=== PATIENT | female | born 1960 | race Caucasian/White ===

== ENCOUNTER 2021-05-05 15:04 | Outpatient (CLI) | payer MEDICARE, MEDICAID, SELFPAY ==
--- NOTE | 2021-05-05 15:15 | MR_ITS ---
WS: [id number] MRI LUMBAR SPINE NONCONTRAST TECHNIQUE: Sagittal T1, T2 and STIR imaging. Axial T1 and T2 imaging. CLINICAL INFORMATION: LBP COMPARISON: MRI 2015 FINDINGS: Mild lumbar curve. No acute compression. No high-grade central canal stenosis. Disc bulging worse L4- 5. L1-L2: Normal. L2-L3: Mild annular bulging. Mild facet arthropathy. Spinal canal and foramen are patent. Mild annula r bulging with slight effacement of the ventral thecal sac. L3-L4: Tiny central disc protrusion with slight narrowing of the right greater than left subarticular recess. Mild right and no significant left foraminal narrowing. Moderate facet arthropathy. L4-L5: Mild annular bulging with mild central canal stenosis. Slight contact of the traversing L5 ner ve roots bilaterally. Mild right and no significant left foraminal narrowing. Moderate facet arthropa thy ligamentum flavum hypertrophy. L5-S1: No significant disc bulging. Moderate facet arthropathy. Spinal canal and foramen are patent. Small bilateral renal cysts. Postoperative changes ACDF cervical spine seen on the conciliator imaging at C3-C6. MR/MR lumbar spine wo con* [id number] IMPRESSION: 1. Mild lumbar curve. No acute compression. No high-grade central canal stenos is. 2. Mild bulging L4-5 with mild central canal stenosis progressed since 2014. S light impingement traversing L5 nerve roots bilaterally with moderate facet art hropathy and ligamentum flavum hypertrophy. 3. Tiny central protrusion L3-4 with slight effacement of ventral thecal sac a nd slight encroachment traversing right L4 nerve root. Moderate facet arthropat hy at this level. 4. Mild right L3-4 and L4-5 foraminal narrowing.
== END 2021-05-05 15:05 | disposition home or self-care (01) ==
PROVIDERS: Visit Provider Physician Assistant
DX: M51.26 Other intervertebral disc displacement, lumbar region (principal); M48.061 Spinal stenosis, lumbar region without neurogenic claudication
CPT/HCPCS: 72148

== ENCOUNTER → 2021-06-10 14:47 | Outpatient (BNVA) | payer MEDICARE, MEDICAID, SELFPAY | PROVIDERS: PCP Physician Assistant; Referring Provider Physician Assistant; Visit Provider Orthopaedic Surgery | DX: M48.062 Spinal stenosis, lumbar region with neurogenic claudication (principal) | CPT/HCPCS: 72110 ==

== ENCOUNTER → 2021-06-27 16:03 | Outpatient (BNVA) | payer MEDICARE, MEDICAID, SELFPAY | PROVIDERS: PCP Physician Assistant; Visit Provider Orthopaedic Surgery | DX: M48.062 Spinal stenosis, lumbar region with neurogenic claudication (principal); Z01.818 Encounter for other preprocedural examination | CPT/HCPCS: 87635 ==

== ENCOUNTER 2021-07-02 05:20 | Day surgery (SDC) | payer MEDICARE, MEDICAID, SELFPAY ==
[2021-06-26 10:32] VITALS: BMI 29.2
--- NOTE | 2021-06-26 10:47 | ANES.PREANE2 ---
Pre-Anesthetic Assessment Pre-Anesthetic Assessment: Height/Weight: Height 1.63 m Weight 77.111 kg Proposed Procedure: Operation Date: 07/02/21 07:00 Proposed Procedures p Lumbar Spine Decompression L4/5 93533 M48.062(Not Applicable) - Munir Tipton, DO Was Beta Josep taken within 24 hours: N/A Was Clonidine taken within 24 hours: N/A Social: Social History: No alcohol and No tobacco Exam: Pre-Anes Outpt Exam: alert, oriented x 3, clear to auscultation bilaterally and regular rate & rhythm Airway: Submandibular: WNL Cervical ROM: WNL MP: 2 CV/HEM: CV/HEM: HTN Metabolic: Metabolic: Hyperlipidemia Musc/skel: Musc/skel: Lower Back Pain Neuropsych: Neuropsych: Anxiety, Depression and Seizure Anesthetic Plan: ASA status: 3 Anesthesia: General Risk of > 500 ml blood loss (7ml/kg in children): No PFSH Anesthesia PFSH: Social History Smoking and tobacco status: former smoker (9 years ) Data Anesthesia Cardiac Studies: No Data to Display
[2021-07-02] VITALS (8 sets, daily range): BP systolic 111–144; BP diastolic 72–88; PULSE 72–76; RESP 16–23; TEMP 36.3–36.6; O2SAT 95–100
--- NOTE | 2021-07-02 | XR_ITS ---
WS: [id number] C-ARM RADIOGRAPHS LUMBAR SPINE; 3 IMAGES HISTORY: spinal stenosis, lumbar COMPARISON: None available. Intraoperative imaging during spine decompression. There is a marker at the L4-5 disc level. XR/XR lumbar spine 1V [id number] IMPRESSION: Intraoperative imaging with marker at the L4-5 disc level.
--- NOTE | 2021-07-02 | SCC_ITS ---
Procedure Done: 1. Bilateral L4/5 laminectomy with partial facetectomies 11.5 seconds of fluoroscopic guidance, for a cumulative dose of 4.50 mGy, was provided to Dr. Tipton by the radiology department. C-arm images of the lumbar spine were saved for the patient's permanent record. [facility]
[2021-07-02] MEDS: sodium chloride 0.9% 1,000 ML 30 ML IV (06:15)
[2021-07-02 06:18] LABS: Glucose Point of Care 131 mg/dL (70-110)
--- NOTE | 2021-07-02 06:45 | P.ANESUD_ITS ---
Pre-Anesthetic Update Pre-Anesthetic Assessment: Date of Surgery/Procedure: 07/02/21 Preop Zara gnosis: Lumbaar Stenosis Proposed Procedure: Operation Date: 07/02/21 07:00 Proposed Procedures p Lumbar Spine Decompression L4/5 36217 M48.062(Not Applicable) - Munir Tipton, DO Any changes to Pre-Anesthetic Assessment?: No Last Intake: Intake Last Liquid Date 07/01/21 Last Liquid Time 23:00 Last Solid Date 07/01/21 Last Solid Time 21:00 Labs Last 48hrs: Laboratory Results - last 48 hr 07/02/21 06:15 POC Glucose 131 H Vitals: Temperature 97.6 F 07/02/21 06:08 Temperature Source Temporal Artery S can 07/02/21 06:08 Pulse Rate 73 07/02/21 06:08 Respiratory Rate 16 07/02/21 06:08 Blood Pressure 129/86 07/02/21 06:08 Blood Pressure Angela n 100 07/02/21 06:08 Pulse Oximetry 96 07/02/21 06:08 Oxygen Delivery Me thod 07/02/21 06:08 Exam: Pre-Anes Outpt Exam: alert, oriented x 3, clear to auscultation bilaterally and regular rate & rhythm Cardiac Studies: No Data to Display
--- NOTE | 2021-07-02 06:50 | W.PM.OPSUD ---
Surgery/Procedure H&P Update DATE OF PROCEDURE: July 02, 2021 DATE H&P PERFORMED: 06/10/21 H&P UPDATE INFORMATION: I have reviewed H&P completed within last 30 days, I have examined patient prior to procedure and No changes to prior documentation PREOP DIAGNOSIS: Lumbaar Stenosis PLANNED PROCEDURE: Operation Date: 07/02/21 07:00 Proposed Procedures p Lumbar Spine Decompression L4/5 30229 M48.062(Not Applicable) - Munir Tipton DO
--- NOTE | 2021-07-02 08:36 | PM.OP ---
Operative Report Date of procedure: July 02, 2021 Pre-op Diagnosis: Lumbaar Stenosis with neurogenic claudication Post-op diagnosis: same Procedure Done: 1. Bilateral L4/5 laminectomy with partial facetectomies Surgeon: Munir Tipton Anesthesia: General Estimated blood loss (mL): 5 Condition: stable Disposition: PACU Procedure: 1. Bilateral L4/5 laminectomy with partial facetectomies Patient is brought to the operative suite. After undergoing anesthesia they are placed in the prone position. All areas of impingement are well padded. Patient is then prepped and draped in the normal sterile fashion. A skin incision is made over the L4/5 level. This is confirmed under c-arm guidance. A series of dilators are passed and the tubular retractor is docked on the L4 lamina. A bovie is used to clear the soft tissue off the lamina and the L 4/5 facet joint. A high speed luis enrique is then used to perform the laminectomy and take down the medial aspect of the L 4/5 facet joint. A kerrison rongeure was then used to take down the remaining lamina and smooth the edged of the laminectomy up to the point where the ligamentum flavum attaches. Attention was then brought to the medial aspect of the facet joint. The remaining medial aspect of the superior and inferior aspect of the facet joint were taken down with the kerrison from the pedicle of L4 to L 5. The facet joint had significant hypertrophy. Attention was then brought to the Ligamentum Flavum. The ligament was taken down from the lamina of L4 to L5 and out medially to the remaining facet joint. The ligament was thick. The dura was then exposed. The dura was in good repair. The L4 nerve was then traced with a curette out the L4/5 foramen and found to be adequately decompressed. The L5 nerve was traced with a curette around the L5 pedicle. The lateral recess was opened with a kerrison helping to further decompress the L5 nerve. The tubular retractor was then tilted to the contralateral side. The bovie was used to take down the soft tissue on the spinous process. The high speed luis enrique was used to take down the spinous process and then the contralateral lamina of L4. The kerrison rongeur was used to take down the remaining lamina to the point where the ligamentum flavum attached and the ligamentum flavum was taken down from L4 to L5. The kerrison rongeur was then used to reach across and take down the medial aspect of the contralateral L4/5 facet joint.The currete was used to trace the contralateral L4 nerve out the L4/5 foramen to make sure it was decompressed adequatesly and the L5 was traced around the L5 pedicle. The lateral recess was opened further with the kerrison to ensure the L5 is adequately decompressed. Wound is then irrigated copiously with saline and surgiflo is used to stop any bleeding. The tubular retractor is removed and the wound is closed with vicryl and monocryl suture. Glue is then used to protect the wound. A sterile dressing is then placed. Patient was then placed in the supine position and transferred to the PACU in stable condition.
[2021-07-02] MEDS: HYDROcodone-acetaminophen 5-325 mg Tablet 1 TAB PO (08:54)
--- NOTE | 2021-07-02 14:47 | ANE.PACU2 ---
Inpatient post-anesthesia follow up: Airway intact: Yes Vital signs: Temperature 98 F Pulse Rate 73 Respiratory Rate 17 Blood Pressure 118/76 Pulse Oximetry 95 Oxygen Delivery Me thod Room Air Oxygen Flow Rate 8 Fraction of Inspir ed Oxygen Hydration adequate: Yes Nausea and vomiting: No Pain level: 2 Mental status: Baseline
== END 2021-07-02 09:50 | disposition home or self-care (01) ==
PROVIDERS: PCP Physician Assistant; Visit Provider Orthopaedic Surgery
PROC: (CPT 63005; principal; 2021-07-02 07:00)
DX: M48.062 Spinal stenosis, lumbar region with neurogenic claudication (principal); I10 Essential (primary) hypertension; E78.5 Hyperlipidemia, unspecified; Z87.891 Personal history of nicotine dependence
CPT/HCPCS: 63047; 36416; 72020; 76000; 82962; J0690; J1100; J2370; J2405; J2704; J2710; J3010; J3490; J7030

== ENCOUNTER → 2021-07-14 13:17 | Outpatient (BNVA) | payer MEDICARE, MEDICAID, SELFPAY | PROVIDERS: PCP Physician Assistant; Visit Provider Urology | DX: N28.1 Cyst of kidney, acquired (principal) | CPT/HCPCS: 81003 ==

== ENCOUNTER 2022-05-15 20:59 | Emergency (ER) | payer MEDICARE, MEDICAID, SELFPAY ==
[2022-05-15 21:02] VITALS: BP 155/99; PULSE 98; RESP 18; TEMP 36.7; O2SAT 94; BMI 27.8
--- NOTE | 2022-05-15 21:05 | ECG_ITS ---
[facility] Test Date: 2022-05-15 Pat Name: Selina Henning Department: Room: Gender: Female Back Sizer: : 1960 Requested By: Macario Huang Order Number: [id number] Liza MD: Liza Mauricio M.D. Measurements Intervals [place] Rate: 91 P: 55 MD: 150 QRS: 13 QRSD: 73 T: 69 QT: 361 QTc: 446 Interpretive Statements SINUS RHYTHM NONSPECIFIC T-WAVE ABNORMALITY Compared to ECG 09/02/2018 13:57:44 T-wave abnormality now present Electronically Signed On 05-16-2022 10:52:32 CDT by Liza Mauricio M.D. [id number]
--- NOTE | 2022-05-15 21:07 | XRR_ITS ---
PROCEDURE INFORMATION: Exam: XR Chest Exam date and time: 05/15/2022 9:42 PM Age: 61 years old Clinical indication: Pain; Chest pressure; Additional info: Cp TECHNIQUE: Imaging protocol: Radiologic exam of the chest. Views: 1 view. COMPARISON: CR XR chest 2V* [id number] 09/02/2018 2:10 PM FINDINGS: Lungs: Unremarkable. No consolidation. Pleural spaces: Unremarkable. No pleural effusion. No pneumothorax. Heart/Mediastinum: Unremarkable. No cardiomegaly. Bones/joints: ACDF hardware noted in the mid and lower cervical spine. Visualized osseous structures are intact. XR/XR chest 1V portable [id number] IMPRESSION: No acute findings.
[2022-05-15 21:13] LABS: Basophils # 0.1 10^3/uL (0.0-0.1); Basophils % 1.1 %; Eosinophils # 0.4 10^3/uL (0.0-0.8); Eosinophils % 4.1 %; Hematocrit 39.7 % (37.0-47.0); Hemoglobin 12.9 g/dL (11.5-15.3); Lymphocytes # 1.9 10^3/uL (0.8-4.8); Lymphocytes % 21.4 %; Mean Corpuscular HGB Conc 32.5 g/dL (30.0-36.0); Mean Corpuscular Hemoglobin 30.5 pg (28.0-34.0); Mean Corpuscular Volume 93.9 fl (81-99); Mean Platelet Volume 8.8 fL (7.4-10.4); Monocytes # 0.7 10^3/uL (0.2-0.9); Monocytes % 7.7 %; Neutrophils # 5.86 10^3/uL (1.8-7.7); Neutrophils % 65.3 %; Nucleated Red Blood Cells % 0 %; Platelet Count 407 10^3/cmm (130-400); Red Blood Count 4.23 10^6/uL (4.1-5.3); Red Cell Distribution Width 11.9 % (12.1-15.1)
[2022-05-15] MEDS: sodium chloride 0.9% 1,000 ML 999 ML IV (21:13)
[2022-05-15 21:16] VITALS: BP 134/85; BP 152/106; BP 163/110; PULSE 80; PULSE 85; PULSE 92; PULSE 97
[2022-05-15 21:51] LABS: Troponin(5th) Baseline 7 ng/L (0-10)
[2022-05-15 22:00] LABS: Alanine Aminotransferase 54 U/L (0-33); Albumin Level 3.9 g/dL (3.5-5.2); Alkaline Phosphatase 153 U/L (35-105); Anion Gap 15.9 (5-19); Aspartate Amino Transferase 26 U/L (0-32); Blood Urea Nitrogen 10 mg/dL (8-23); Calcium 9.4 mg/dL (8.5-10.5); Carbon Dioxide 27 mmol/L (22-29); Chloride 101 mmol/L (98-107); Globulin 3.1 g/dL (1.3-4.6); Glomerular Filtration Rate 84.8 mL/min (90-130); Glucose 114 mg/dL (65-115); Lipase 33 U/L (13-60); NT Pro B Type Natriuretic Pept 97 pg/mL (0-125); Osmolality Calculated 290 mOsm/kg (285-295); Potassium 3.9 mmol/L (3.5-5.1); Sodium 140 mmol/L (136-145); Total Bilirubin 0.2 mg/dL (0.15-1.2)
--- NOTE | 2022-05-15 22:01 | CTR_ITS ---
PROCEDURE INFORMATION: Exam: CT Head Without Contrast Exam date and time: 05/15/2022 10:18 PM Age: 61 years old Clinical indication: Dizziness TECHNIQUE: Imaging protocol: Computed tomography of the head without contrast. Radiation optimization: All CT scans at this facility use at least one of these dose optimization techniques: automated exposure control; mA and/or kV adjustment per patient size (includes targeted exams where dose is matched to clinical indication); or iterative reconstruction. COMPARISON: No relevant prior studies available. RADIATION DOSE METRICS: Total DLP (mGy-cm): 1401.23 FINDINGS: Brain: Normal. No hemorrhage. Unremarkable white matter. No mass effect. Cerebral ventricles: No ventriculomegaly. Paranasal sinuses: Visualized sinuses are unremarkable. No fluid levels. Mastoid air cells: Visualized mastoid air cells are well aerated. Bones/joints: Unremarkable. No acute fracture. Soft tissues: Unremarkable. CT/CT head wo con* [id number] IMPRESSION: No acute intracranial abnormality.
[2022-05-15 22:07] VITALS: RESP 17
[2022-05-15] MEDS: morphine 4 mg/mL SDV 1 mL IVP (22:07)
[2022-05-15] MEDS: ondansetron 2 mg/ML SDV 2 mL 4 MG IVP (22:07)
[2022-05-15 23:00] VITALS: BP 135/97; PULSE 76; RESP 22; O2SAT 94
--- NOTE | 2022-05-15 23:07 | ECG_ITS ---
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 Measurements Intervals [place] Rate: 66 P: 52 W[place]: 137 QRS: 21 QRSD: 76 T: 71 QT: 399 QTc: 421 Interpretive Statements SINUS RHYTHM ST DEVIATION AND MODERATE T-WAVE ABNORMALITY, CONSIDER ANTERIOR ISCHEMIA [-0.1+ mV T-WAVE IN V3/V4] Compared to ECG 05/15/2022 21:05:40 Possible ischemia now present T-wave abnormality still present Electronically Signed On 05-16-2022 10:55:07 CDT by Liza Mauricio M.D. [id number]
[2022-05-15 23:39] LABS: Troponin 5 2HR 7.51 ng/L (0-10)
[2022-05-15 23:40] LABS: SARS Covid-2 Antigen negative (Negative)
[2022-05-15 23:59] LABS: Troponin 5 2HR Delta 0.51 ABS# (0-10)
[2022-05-16 00:07] LABS: Blood Urine Neg (Negative); Glucose Urine UA Norm (Normal); Ketones Urine Negative (Negative); Leukocyte Esterase Urine Trace (Negative); Nitrate Urine Negative (Negative); Protein Urine Neg (Negative); Specific Gravity, Urine 1.015 (1.005-1.030); Urine Appearance Hazy (CLEAR); Urine Color Yellow (Yellow); pH Urine 7 (5-7)
[2022-05-16 00:08] LABS: Add Urine Microscopic? YES; Bilirubin Urine Neg (Negative); Urobilinogen Urine Norm (Negative)
[2022-05-16 00:09] LABS: Add Urine Culture? No; WBC Urine 0-4 /hpf (0-5)
[2022-05-16 00:28] VITALS: BP 122/74; PULSE 83; RESP 19; O2SAT 94
--- NOTE | 2022-05-16 13:17 | ED_ITS ---
HPI - Chest Pain General: Chief Complaint: Chest Pain Stated Complaint: N/V Time Seen by Provider: 05/15/22 21:06 Source: patient History of Present Illness: 61yo female with several days of illness and multiple comlaints including cough with chest pain with cough, generalized weakness, some sputum production, feeling feverish. Today she got quite dizzy a s well, which she describes as a room spinning type dizziness. MD complaint: chest pain Pertinent past history: other Onset (ago): hour(s) Timing of current episode: episodic Prior episodes: Yes Onset: during rest Pain location: substernal Pain radiation: none Severity: mild Quality: sharp Relieving factors: nothing Exacerbating factors: inspiration Associated symptoms: Reports diaphoresis, dyspnea (mild), fever(s) and nausea; Deny abdominal pain, leg edema, syncope or vomiting Treatment prior to arrival: none Review of Systems Const: Reports: fever(s) and diaphoresis Eyes: Denies: change in vision ENMT: Reports: throat pain Card: Reports: chest pain; Denies: syncope Resp: Reports: dyspnea (mild) and productive cough; Denies: wheezing GI: Reports: nausea; Denies: abdominal pain or vomiting Neuro: Reports: headache(s) PFSH ED PFSH: Medical History Bilateral renal cysts Family history of kidney cancer Family History Father , AT 88 Heart attack Diabetes Mother , AT AGE 85 Heart attack Social History Smoking and tobacco status: former smoker (9 years ) Alcohol intake: never Marital status: Current occupational status: retired and disabled History of recent travel: No Physical Exam Const: COMMON NORMALS: no acute distress GENERAL APPEARANCE: cooperative and ill appearing (very mildly); not frail appearing HENMT: COMMON NORMALS: normocephalic, atraumatic and Normal external nose present HEAD & SCALP: normocephalic and atraumatic FACE & SINUS: normal facial exam and face symmetric NOSE: Normal external nose present Eye: COMMON NORMALS: Equal, round and reactive pupils present and EOMs intact bilaterally PUPIL: Yes Equal, round and reactive pupils present Neck/C-Spine: GENERAL: Yes trachea midline Chest: CHEST: Yes Symmetrical chest wall rise Resp: COMMON NORMALS: normal respiratory effort, No retractions, No use of accessory muscles and clear to auscultation bilaterally AUSCULTATION: clear to auscultation bilaterally Cardio: COMMON NORMALS: regular rate and regular rhythm RATE: regular rate RHYTHM: regular rhythm GI: COMMON NORMALS: Normal to inspection, nondistended, normoactive bowel sounds present Extremity: COMMON NORMALS: no pedal edema Neuro: JOON COMA SCALE: document GCS findings Joon coma scale eye opening: Spontaneous Joon coma scale verbal response: Orientated [place] coma scale motor response: Obey commands Joon coma scale total score: 15 SENSORY EXAM: Yes extremities (intact) Psych: COMMON NORMALS: speech normal SPEECH: Yes normal speech Skin: COMMON NORMALS: no rashes or lesions noted GENERAL SKIN EXAM: no rashes or lesions noted Course 2 Vital Signs: Vital signs: Vital Signs Temperature 98.0 F 05/15/22 21:02 Pulse Rate 83 05/16/22 00:28 Respiratory Rate 19 H 05/16/22 00:28 Blood Pressure 122/74 05/16/22 00:28 Pulse Oximetry 94 05/16/22 00:28 Oxygen Delivery Me thod 05/15/22 21:02 MDM - Chest Pain Medical Decision Making EKG shows no ST change at 0 and 2h. Troponin remained normal. CBC BMP not remar kable. urinalysis neg. LFT not remarkable. CT head neg. xray neg as well. will allow home. she is improved after fluid here. Lab Data : 05/15/22 21:00 05/15/22 21:00 Radiology Impressions Chest X-Ray 05/15/22 21:07 IMPRESSION: No acute findings. Head CT 05/15/22 22:01 IMPRESSION: No acute intracranial abnormality. Laboratory Results WBC 9.0 10^3/uL (4.0-10.0) 05/15/22 21:00 RBC 4.23 10^6/uL (4.1-5.3) 05/15/22 21:00 Hgb 12.9 g/dL (11.5-15.3) 05/15/22 21:00 Hct 39.7 % (37.0-47.0) 05/15/22 21:00 MCV 93.9 fl (81-99) 05/15/22 21:00 MCH 30.5 pg (28.0-34.0) 05/15/22 21:00 MCHC 32.5 g/dL (30.0-36.0) 05/15/22 21:00 RDW 11.9 % (12.1-15.1) L 05/15/22 21:00 Plt Count 407 10^3/cmm (130-400) H 05/15/22 21:00 MPV 8.8 fL (7.4-10.4) 05/15/22 21:00 Neut % (Auto) 65.3 % 05/15/22 21:00 Lymph % (Auto) 21.4 % 05/15/22 21:00 Nance % (Auto) 7.7 % 05/15/22 21:00 Eos % (Auto) 4.1 % 05/15/22 21:00 Baso % (Auto) 1.1 % 05/15/22 21:00 Neut # (Auto) 5.86 10^3/uL (1.8-7.7) 05/15/22 21:00 Lymph # (Auto) 1.9 10^3/uL (0.8-4.8) 05/15/22 21:00 Nance # (Auto) 0.7 10^3/uL (0.2-0.9) 05/15/22 21:00 Eos # (Auto) 0.4 10^3/uL (0.0-0.8) 05/15/22 21:00 Baso # (Auto) 0.1 10^3/uL (0.0-0.1) 05/15/22 21:00 Nucleated RBC % (auto) 0 % 05/15/22 21:00 Nucleated RBCs # 0.0 /100WBC 05/15/22 21:00 Sodium 140 mmol/L (136-145) 05/15/22 21:00 Potassium 3.9 mmol/L (3.5-5.1) 05/15/22 21:00 Chloride 101 mmol/L (98-107) 05/15/22 21:00 Carbon Dioxide 27 mmol/L (22-29) 05/15/22 21:00 Anion Gap 15.9 (5-19) 05/15/22 21:00 BUN 10 mg/dL (8-23) 05/15/22 21:00 Creatinine 0.7 mg/dL (0.5-0.9) 05/15/22 21:00 GFR Calculation 84.8 mL/min (90-130) L 05/15/22 21:00 Glucose 114 mg/dL (65-115) 05/15/22 21:00 Calculated Osmolality 290 mOsm/kg (285-295) 05/15/22 21:00 Calcium 9.4 mg/dL (8.5-10.5) 05/15/22 21:00 Total Bilirubin 0.2 mg/dL (0.15-1.2) 05/15/22 21:00 AST 26 U/L (0-32) 05/15/22 21:00 ALT 54 U/L (0-33) H 05/15/22 21:00 Alkaline Phosphatase 153 U/L (35-105) H 05/15/22 21:00 Troponin T Baseline 7 ng/L (0-10) 05/15/22 21:00 Troponin T 120 Minute 7.51 ng/L (0-10) 05/15/22 23:15 Delta Troponin T 0.51 ABS# (0-10) 05/15/22 23:15 NT-Pro-B Natriuret Pep 97 pg/mL (0-125) 05/15/22 21:00 Total Protein 7.0 g/dL (6.6-8.7) 05/15/22 21:00 Albumin 3.9 g/dL (3.5-5.2) 05/15/22 21:00 Globulin 3.1 g/dL (1.3-4.6) 05/15/22 21:00 Lipase 33 U/L (13-60) 05/15/22 21:00 Urine Color Yellow (Yellow) 05/15/22 23:28 Urine Appearance Hazy (CLEAR) A 05/15/22: Urine pH 7 (5-7) 05/15/22: Ur Specific [place] 1.015 (1.005-1.030) 05/15/22 23: Urine Protein Neg (Negative) 05/15/22: Urine Glucose (UA) Norm (Normal) 05/15/22: Urine Ketones Negative (Negative) 05/15/22: Urine Blood Neg (Negative) 11/04/22 23:28 Urine Nitrate Negative (Negative) 05/15/22 23:28 Urine Bilirubin Neg (Negative) 05/15/22 23:28 Urine Urobilinogen Norm mg/dL (Negative) 05/15/22 23:28 Ur Leukocyte Esterase Trace (Negative) H 05/15/22 23:28 Urine RBC None /hpf (0-2) 05/15/22 23:28 Urine WBC 0-4 /hpf (0-5) H 05/15/22 23:28 Ur Squamous Epith Cells None /hpf (0-5) 05/15/22 23:28 Amorphous Sediment Not Reportable 05/15/22 23:28 Urine Bacteria None /hpf (NONE) 05/15/22 23:28 SARS-CoV-2 Ag (Rapid) negative (Negative) 05/15/22 23:10 Discharge Plan Discharge Patient Disposition: Home Clinical Impression: Chest pain, Vertigo, Bronchitis Condition: Stable Prescriptions: New Medrol (Dennis) 4 mg tablets,dose pack See Rx Instructions .ROUTE .COMPLEX Qty: 21 0RF Rx Instructions: orally per package directions doxycycline hyclate 100 mg tablet 100 mg PO BID 7 Days Qty: 14 0RF meclizine 25 mg tablet 12.5 mg PO TID PRN (Reason: dizziness) Qty: 30 0RF No Action metformin 500 mg tablet 500 mg PO BID metoprolol succinate 25 mg tablet extended release 24 hr 50 mg PO BID duloxetine 20 mg capsule,delayed release(DR/EC) 60 mg PO BID losartan 50 mg tablet 50 mg PO BID atorvastatin 40 mg tablet 40 mg PO DAILY sumatriptan succinate 50 mg tablet 50 mg PO PRN bupropion HCl 100 mg tablet 100 mg PO BID lamotrigine 100 mg tablet 100 mg PO BID Vraylar 3 mg capsule 3 mg PO DAILY Vitamin D (with calcium) See Rx Instructions .ROUTE .COMPLEX Rx Instructions: 50,000 unit orally WEEKLY hydrocodone-acetaminophen 5-325 mg tablet 1 - 2 tab PO .Q4-6H Qty: 40 0RF Discharge Orders: Discharge ED (Routine); Ordered 05/16/22 Ordered By: Macario Leon Referrals: Gladis Correia PA-C [Primary Care Provider] - 1-3 days Patient Instructions: Chest Pain (ED), Vertigo (ED), Acute Bronchitis (ED), Opioid Safety, Pain Management Activity Restrictions/Additional Instructions: Return for worsening pain despite treatment, worsening dizziness despite treatment, weakness, slurred speech or language problems, mental status changes, worsening shortness of breath or any other concerning symptoms. See your doctor next week for follow-up. 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
== END 2022-05-16 00:29 | disposition home or self-care (01) ==
PROVIDERS: Emergency Provider Emergency Medicine; PCP Physician Assistant
DX: R07.9 Chest pain, unspecified (principal); R42 Dizziness and giddiness; J40 Bronchitis, not specified as acute or chronic; Z79.84 Long term (current) use of oral hypoglycemic drugs; Z20.822 Contact with and (suspected) exposure to COVID-19; Z87.891 Personal history of nicotine dependence
CPT/HCPCS: 36415; 70450; 71045; 80053; 81001; 81003; 83690; 83880; 84484; 85025; 87426; 93005; 96374; 96375; 99285; J2270; J2405; J7030

== ENCOUNTER → 2022-07-29 12:31 | Outpatient (BNVA) | payer MEDICARE, MEDICAID, SELFPAY | PROVIDERS: PCP Physician Assistant; Visit Provider Internal Medicine Cardiovascular Disease | DX: R06.02 Shortness of breath (principal); I10 Essential (primary) hypertension; Z82.49 Family history of ischemic heart disease and other diseases of the circulatory system; Z87.891 Personal history of nicotine dependence | CPT/HCPCS: 99214; Q3014 ==

== ENCOUNTER 2022-08-25 07:49 | Outpatient (CLI) | payer MEDICARE, MEDICAID, SELFPAY ==
[2022-08-25 07:59] VITALS: BMI 27.4
--- NOTE | 2022-08-25 08:50 | ECG_ITS ---
[facility] Test Date: 2022-08-25 Pat Name: Selina Henning Department: Room: Gender: Female Curriculum And Assessment Director: Sweta Roca : 1960 Requested By: Liza Mauricio Order Number: [id number] Liza MD: Liza Mauricio M.D. Interpretive Statements NAME OF STUDY: EXERCISE SESTAMIBI STRESS TEST INDICATION: Exertional shortness of Breath Baseline blood pressure of 119/73 mm Hg, heart rate of 110 beats per minute and oxygen saturation of 95%. EKG showed sinus tachycardia with normal ST-Ts. ??? The patient exercised for 3 minutes on a [standard Philippe protocol]. Patient attained a maximum heart rate of 166 beats per minute( 105 % of the maximum predicted heart rate) with a blood pressure at the peak exercise of 166/85 mm Hg and oxygen saturation of 96%. The EKG at the peak exercise revealed sinus tachycardia with no significant ST-T wave changes. Patient did not have any chest pain or any significant arrhythmis with the exercise. The study was terminated due to maximal effort. During the recovery phase, there were no new changes. ??? Blood pressure at the end of the recovery phase was 112/77 mm Hg with a heart rate of 122 beats per minute and oxygen saturation of 98% ??? CONCLUSION: 1. Normal EKG response to treadmill exercise. 2. No exercise-induced chest pain or cardiac arrhythmia. 3. Decreased exercise tolerance, attained a maximum of 4.6 METs. 4. Baseline normal blood pressure with normal response to exercise. 5. Perfusion scan will be documented separately. Electronically Signed On 08-29-2022 10:35:19 VENEER DRIER TAILER by Liza Mauricio M.D. [email or web address]/[id number]
--- NOTE | 2022-08-25 08:54 | NMCV_ITS ---
NM marco a perf SPECT r/s* [id number] Selina Henning Age: 61 Gender: F : 1960 Exam Date: 08/25/2022 08:54 Ordering Phys: Liza Mauricio MD ([email or web address]) Technologist: NELLY Jacome Exam Location: [facility] Indications: SHORTNESS OF BREATH STRESS TEST [facility] IMAGE PROTOCOL Rest/Stress 1 Exercise Day Radiopharmaceutical Dose (mCi) Administration Site Administered by Rest: Tc-99m 10.8 IV NELLY Landon Sestamibi Stress:Tc-99m 32.4 IV NELLY Landon Sestamicary Rest: 25-Aug-2022 60 Discovery 630 Stress: 25-Aug-2022 30 Discovery 630 Radiopharmaceutical was injected at 100% maximum heart rate. Images obtained in supine and prone position. SPECT RESULTS Technical Quality: Excellent Raw Data Analysis: Normal Image Corrections: No attenuation or motion correction applied Summed Stress Score: 3 Summed Rest Score: 3 Summed Difference Score: 1 PERFUSION FINDINGS There is homogenous radiotracer uptake throughout the myocardium. No evidence of ischemia seen. FUNCTIONAL RESULTS (calculated via Gated SPECT) Stress Image LV EF (%): 93 Stress EDV (mL):27 TID: 0.75 Stress ESV (mL):2 FUNCTIONAL FINDINGS: There is normal left ventricular systolic function. IMPRESSIONS 1. Normal myocardial perfusion imaging with no evidence of ischemia 2. LV systolic function is normal Doe Jackson MD (Electronically Signed) Final Date: 04 September 2022 07:46 S
[2022-08-25 10:30] VITALS: BP 112/77; PULSE 115
== END 2022-08-25 07:50 | disposition home or self-care (01) ==
LOC: CDL 07:53
PROVIDERS: PCP Physician Assistant; Visit Provider Internal Medicine Cardiovascular Disease
DX: R06.02 Shortness of breath (principal)
CPT/HCPCS: 36415; 78452; 93017; A9500

== ENCOUNTER 2022-09-22 17:09 | Observation (INO) | payer MEDICARE, MEDICAID, SELFPAY ==
[2022-09-22] VITALS (9 sets, daily range): BP systolic 106–152; BP diastolic 55–81; PULSE 54–74; RESP 16–22; TEMP 36.3–36.6; O2SAT 95–98; BMI 26.6
--- NOTE | 2022-09-22 17:21 | XRR_ITS ---
PROCEDURE INFORMATION: Exam: XR Chest Exam date and time: 09/22/2022 5:26 PM Age: 61 years old Clinical indication: Cough; Additional info: Dyspnea/cough TECHNIQUE: Imaging protocol: Radiologic exam of the chest. Views: 1 view. COMPARISON: CR XR chest 1V portable [id number] 05/15/2022 9:42 PM FINDINGS: Lungs: Unremarkable. No consolidation. Pleural spaces: Unremarkable. No pleural effusion. No pneumothorax. Heart/Mediastinum: Unremarkable. No cardiomegaly. Bones/joints: ACDF hardware noted in the lower cervical spine. Visualized osseous structures are intact. XR/XR chest 1V portable [id number] IMPRESSION: No acute findings.
--- NOTE | 2022-09-22 17:24 | W.ED.DIZZY ---
HPI - Dizziness General: Chief Complaint: Dizziness Stated Complaint: DIZZY/ SYNCOPE/ BLACKBURN/ HYPOTENSIVE Time Seen by Provider: 09/22/22 17:20 PFSH ED PFSH: Medical History (Updated 07/29/22 @ 13:25 by Liza Mauricio MD) Bilateral renal cysts Diabetes Family history of ischemic heart disease and other diseases of the circulatory system Family history of kidney cancer HTN (hypertension) Hyperlipidemia Irritable bowel syndrome with diarrhea Surgical History (Updated 07/29/22 @ 13:25 by Liza Mauricio MD) History of back surgery History of cervical spinal surgery History of cholecystectomy History of hysterectomy History of knee replacement History of rotator cuff surgery Family History Father , AT 88 Heart attack Diabetes Mother , AT AGE 85 Heart attack Diabetes Sister Heart attack Social History Smoking and tobacco status: former smoker (9 years ) Alcohol intake: never Marital status: Current occupational status: retired and disabled Course Vital Signs: Vital signs: Vital Signs Temperature 97.4 F L 09/22/22 17:11 Pulse Rate 74 09/22/22 17:11 Respiratory Rate 18 09/22/22 17:11 Blood Pressure 118/81 09/22/22 17:11 Pulse Oximetry 97 09/22/22 17:11 Oxygen Delivery Me thod 09/22/22 17:11 MDM - Dizziness Lab Data Radiology Impressions Chest X-Ray 09/22/22 17:21 IMPRESSION: No acute findings. Discharge Plan Discharge Condition: Stable Prescriptions: No Action metformin 500 mg tablet 500 mg PO BID metoprolol tartrate 50 mg tablet 50 mg PO BID amlodipine 5 mg tablet 5 mg PO DAILY hydrochlorothiazide 25 mg tablet 25 mg PO DAILY omeprazole 20 mg capsule,delayed release(DR/EC) 20 mg PO DAILY cholecalciferol (vitamin D3) 1,250 mcg (50,000 unit) capsule 50,000 unit PO .weekly losartan 50 mg tablet 50 mg PO BID atorvastatin 40 mg tablet 40 mg PO DAILY sumatriptan succinate 50 mg tablet 50 mg PO PRN Vraylar 3 mg capsule 3 mg PO DAILY Referrals: Gladis Correia PA-C [Primary Care Provider] - Coding Level of Care Code ED Compensation Coordinator for Chg Nik
--- NOTE | 2022-09-22 17:30 | ECG_ITS ---
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
--- NOTE | 2022-09-22 17:56 | ED_ITS ---
Documented by User: Serge Herman DO 09/23/22 08:15 HPI - Arrhythmia/Palpitations General: Chief Complaint: Dizziness Stated Complaint: DIZZY/ SYNCOPE/ BLACKBURN/ HYPOTENSIVE Time Seen by Provider: 09/22/22 17:20 Source: patient Mode of arrival: EMS History of Present Illness: 59-year-old female with a history of hypertension is currently taking metoprolol 50 mg twice daily no recent change in doses. She is going to see her doctor today for routine visit began to get dizzy lightheaded. She had similar symptoms last few days that got worse she had a syncopal episode with chest pain while at the clinic EKG was done they were ported having heart rate in the 30s EMS was called she was given atropine and brought to the emergency room. EMS rhythm strip shows a heart rate in the mid 50s. This was after atropine by the time she arrives here vital signs are stable heart rates in the 70s blood pressure is 118 systolic her symptoms have resolved and she feels better. Recently had a stress test 4 weeks ago myocardial perfusion scan was normal. MD complaint: irregular heart beat Onset (ago): hour(s) Duration: constant Severity: mild Associated symptoms: Reports pre-syncope; Deny anxiety, cough, diaphoresis, muscle cramps, nausea, paresthesias, sense of impending doom, short of breath, syncope or vomiting Review of Systems Const: Reports: fatigue and malaise; Denies: fever(s), chills or diaphoresis ENMT: Denies: throat pain, ear or mastoid pain, nasal discharge or nasal congestion Card: Reports: chest pain, irregular heart rhythm and pre-syncope; Denies: palpitations, edema, swelling of feet/ankles or syncope Resp: Denies: dyspnea, productive cough or non-productive cough GI: Denies: abdominal pain, nausea or vomiting : Denies: flank pain, difficulty voiding, dysuria, urinary frequency or urinary urgency Musc: Denies: muscle cramps Skin/Breast: Denies: rash or pruritus Psych: Denies: anxiety PFSH ED PFSH: Medical History Bilateral renal cysts Chronic back pain Diabetes Family history of ischemic heart disease and other diseases of the circulatory system Family history of kidney cancer Fibromyalgia HTN (hypertension) Hyperlipidemia Irritable bowel syndrome with diarrhea Surgical History History of back surgery History of cervical spinal surgery History of cholecystectomy History of hysterectomy History of knee replacement History of rotator cuff surgery Family History Father , AT 88 Heart attack Diabetes Mother , AT AGE 85 Heart attack Diabetes Sister Heart attack Social History Smoking and tobacco status: former smoker (9 years ) Alcohol intake: never Marital status: Current occupational status: retired and disabled Physical Exam Const: GENERAL APPEARANCE: cooperative and comfortable ORIENTATION/CONSCIOUSNESS: Yes awake, Yes oriented to person, Yes oriented to place and Yes oriented to time HENMT: COMMON NORMALS: normocephalic, atraumatic and hearing grossly normal bilaterally HEAD & SCALP: normocephalic and atraumatic Resp: COMMON NORMALS: normal respiratory effort, No retractions, No use of accessory muscles and clear to auscultation bilaterally AUSCULTATION: clear to auscultation bilaterally Cardio: COMMON NORMALS: regular rate, regular rhythm and No murmurs present (Cardio) RATE: regular rate RHYTHM: regular rhythm GI: COMMON NORMALS: Soft to palpation and No hepatosplenomegaly present AUSCULTATION: Yes normoactive bowel sounds PALPATION: Yes Soft to palpation, No Tenderness to palpation present (GI), No Guarding due to palpation present (GI) and Yes No hepatosplenomegaly present Extremity: COMMON NORMALS: normal to inspection, capillary refill normal, no clubbing, cyanosis or edema, no calf tenderness and no pedal edema Neuro: SENSORIUM/ORIENTATION: Yes oriented to person, Yes oriented to place and Yes oriented to time Skin: COMMON NORMALS: no rashes or lesions noted GENERAL SKIN EXAM: no rashes or lesions noted Course Vital Signs: Vital signs: Vital Signs Temperature 98.2 F 09/23/22 07:31 Pulse Rate 64 09/23/22 07:31 Respiratory Rate 20 H 09/23/22 07:31 Blood Pressure 110/57 09/23/22 07:31 Pulse Oximetry 95 09/23/22 07:31 Oxygen Delivery Me thod 09/23/22 07:31 MDM - Arrhythmia/Palpitations Medical Decision Making Care signed out to Dr. Abarca at change of shift. See final notes for diagnosis a nd disposition. Patient care handoff received from Dr. Herman pending completion of ED evaluation and likely admission. Laboratory studies were reviewed. Patient does have mildly elevated creatinine and low magnesium level. Magnesium replenishment ordered. Negative range 2-hour delta troponin. Chest x-ray with no lobar consolidation or pneumothorax. Given episode of bradycardia requiring intervention associated with symptoms including syncope and chest pain without clear etiology patient requires inpatient observation on telemetry and further inpatient evaluation. The results of ED evaluation were discussed with the patient including plan for admission due to requirement for level of care not available if discharged to prevent significant worsening/deterioration. Patient agreeable with plan. Discussed with hospitalist service who was agreeable to admit patient. Inderjit Abarca MD Emergency Medicine Medical Records I reviewed the patient's medical records. Lab Data I reviewed the patient's lab results. 09/22/22 17:40 09/22/22 17:40 Radiology Impressions Chest X-Ray 09/22/22 17:21 IMPRESSION: No acute findings. Laboratory Results WBC 13.2 10^3/uL (4.0-10.0) H 09/22/22 17:40 RBC 4.14 10^6/uL (4.1-5.3) 09/22/22 17:40 Hgb 12.9 g/dL (11.5-15.3) 09/22/22 17:40 Hct 38.5 % (37.0-47.0) 09/22/22 17:40 MCV 93.0 fl (81-99) 09/22/22 17:40 MCH 31.2 pg (28.0-34.0) 09/22/22 17:40 MCHC 33.5 g/dL (30.0-36.0) 09/22/22 17:40 RDW 13.0 % (12.1-15.1) 09/22/22 17:40 Plt Count 386 10^3/cmm (130-400) 09/22/22 17:40 MPV 9.7 fL (7.4-10.4) 09/22/22 17:40 Neut % (Auto) 73.4 % 09/22/22 17:40 Lymph % (Auto) 16.4 % 09/22/22 17:40 Stafford % (Auto) 5.2 % 09/22/22 17:40 Eos % (Auto) 3.7 % 09/22/22 17:40 Baso % (Auto) 0.8 % 09/22/22 17:40 Neut # (Auto) 9.66 10^3/uL (1.8-7.7) H 09/22/22 17:40 Lymph # (Auto) 2.2 10^3/uL (0.8-4.8) 09/22/22 17:40 Stafford # (Auto) 0.7 10^3/uL (0.2-0.9) 09/22/22 17:40 Eos # (Auto) 0.5 10^3/uL (0.0-0.8) 09/22/22 17:40 Baso # (Auto) 0.1 10^3/uL (0.0-0.1) 09/22/22 17:40 Nucleated RBC % (auto) 0 % 09/22/22 17:40 Nucleated RBCs # 0.0 /100WBC 09/22/22 17:40 D-Dimer 0.41 ug/mIFEU (0-0.59) 09/22/22 17:40 Sodium 137 mmol/L (136-145) 09/22/22 17:40 Potassium 4.1 mmol/L (3.5-5.1) 09/22/22 17:40 Chloride 99 mmol/L (98-107) 09/22/22 17:40 Carbon Dioxide 27 mmol/L (22-29) 09/22/22 17:40 Anion Gap 15.1 (5-19) 09/22/22 17:40 BUN 14 mg/dL (8-23) 09/22/22 17:40 Creatinine 1.1 mg/dL (0.5-0.9) H 09/22/22 17:40 GFR Calculation 50.3 mL/min (90-130) L 09/22/22 17:40 Glucose 103 mg/dL (65-115) 09/22/22 17:40 Calculated Osmolality 285 mOsm/kg (285-295) 09/22/22 17:40 Calcium 9.2 mg/dL (8.5-10.5) 09/22/22 17:40 Magnesium 1.3 mg/dL (1.7-2.3) L 09/22/22 17:40 Total Bilirubin 0.4 mg/dL (0.15-1.2) 09/22/22 17:40 AST 25 U/L (0-32) 09/22/22 17:40 ALT 21 U/L (0-33) 09/22/22 17:40 Alkaline Phosphatase 119 U/L (35-105) H 09/22/22 17:40 Troponin T Baseline 9 ng/L (0-10) 09/22/22 17:40 Troponin T 120 Minute 8.10 ng/L (0-10) 09/22/22 19:27 Delta Troponin T -0.9 ABS# (0-10) L 09/22/22 19:27 Total Protein 7.3 g/dL (6.6-8.7) 09/22/22 17:40 Albumin 4.1 g/dL (3.5-5.2) 09/22/22 17:40 Globulin 3.2 g/dL (1.3-4.6) 09/22/22 17:40 TSH 2.68 uIU/mL (0.27-4.20) 09/22/22 17:40 Urine Color Yellow (Yellow) 09/22/22 18:36 Urine Appearance Hazy (CLEAR) A 09/22/22 18:36 Urine pH 5 (5-7) 09/22/22 18:36 Ur Specific Comstock 1.015 (1.005-1.030) 09/22/22 18:36 Urine Protein Trace (Negative) 09/22/22 18:36 Urine Glucose (UA) Norm (Normal) 09/22/22 18:36 Urine Ketones Negative (Negative) 09/22/22 18:36 Urine Blood 2+ (Negative) H 09/22/22 18:36 Urine Nitrate Negative (Negative) 09/22/22 18:36 Urine Bilirubin Neg (Negative) 09/22/22 18:36 Urine Urobilinogen Norm mg/dL (Negative) 09/22/22 18:36 Ur Leukocyte Esterase 2+ (Negative) H 09/22/22 18:36 Urine RBC 0-4 /hpf (0-2) H 09/22/22 18:36 Urine WBC 10-15 /hpf (0-5) H 09/22/22 18:36 Ur Squamous Epith Cells 15-25 /hpf (0-5) H 09/22/22 18:36 Amorphous Sediment Not Reportable 09/22/22 18:36 Urine Bacteria 1+ /hpf (NONE) H 09/22/22 18:36 Discharge Plan Discharge Patient Disposition: Placed in Observation Admit Provider: Brendon Welch Clinical Impression: Syncope and collapse, Symptomatic bradycardia Sign Out Sign Out Data: Patient Sign Out occurred on 09/22/22 at 18:47. Patient's care was discussed, and care was transferred from to Inderjit Abarca MD. Coding Level of Care Code ED Video Game Technician for Chg Fwd Documented by User: Inderjit Abarca MD 09/23/22 02:39 HPI - Arrhythmia/Palpitations General: Chief Complaint: Dizziness Stated Complaint: DIZZY/ SYNCOPE/ BLACKBURN/ HYPOTENSIVE Time Seen by Provider: 09/22/22 17:20 PFSH ED PFSH: Medical History Bilateral renal cysts Chronic back pain Diabetes Family history of ischemic heart disease and other diseases of the circulatory system Family history of kidney cancer Fibromyalgia HTN (hypertension) Hyperlipidemia Irritable bowel syndrome with diarrhea Surgical History History of back surgery History of cervical spinal surgery History of cholecystectomy History of hysterectomy History of knee replacement History of rotator cuff surgery Family History Father , AT 88 Heart attack Diabetes Mother , AT AGE 85 Heart attack Diabetes Sister Heart attack Social History Smoking and tobacco status: former smoker (9 years ) Alcohol intake: never Marital status: Current occupational status: retired and disabled Course Vital Signs: Vital signs: Vital Signs Temperature 98.2 F 09/23/22 07:31 Pulse Rate 64 09/23/22 07:31 Respiratory Rate 20 H 09/23/22 07:31 Blood Pressure 110/57 09/23/22 07:31 Pulse Oximetry 95 09/23/22 07:31 Oxygen Delivery Me thod 09/23/22 07:31 MDM - Arrhythmia/Palpitations Medical Decision Making Patient care handoff received from Dr. Herman pending completion of ED evaluation and likely admission. Laboratory studies were reviewed. Patient does have mildly elevated creatinine and low magnesium level. Magnesium replenishment ordered. Negative range 2-hour delta troponin. Chest x-ray with no lobar consolidation or pneumothorax. Given episode of bradycardia requiring intervention associated with symptoms including syncope and chest pain without clear etiology patient requires inpatient observation on telemetry and further inpatient evaluation. The results of ED evaluation were discussed with the patient including plan for admission due to requirement for level of care not available if discharged to prevent significant worsening/deterioration. Patient agreeable with plan. Discussed with hospitalist service who was agreeable to admit patient. Inderjit Abarca MD Emergency Medicine Lab Data 09/22/22 17:40 09/22/22 17:40 Radiology Impressions Chest X-Ray 09/22/22 17:21 IMPRESSION: No acute findings. Laboratory Results WBC 13.2 10^3/uL (4.0-10.0) H 09/22/22 17:40 RBC 4.14 10^6/uL (4.1-5.3) 09/22/22 17:40 Hgb 12.9 g/dL (11.5-15.3) 09/22/22 17:40 Hct 38.5 % (37.0-47.0) 09/22/22 17:40 MCV 93.0 fl (81-99) 09/22/22 17:40 MCH 31.2 pg (28.0-34.0) 09/22/22 17:40 MCHC 33.5 g/dL (30.0-36.0) 09/22/22 17:40 RDW 13.0 % (12.1-15.1) 09/22/22 17:40 Plt Count 386 10^3/cmm (130-400) 09/22/22 17:40 MPV 9.7 fL (7.4-10.4) 09/22/22 17:40 Neut % (Auto) 73.4 % 09/22/22 17:40 Lymph % (Auto) 16.4 % 09/22/22 17:40 Stafford % (Auto) 5.2 % 09/22/22 17:40 Eos % (Auto) 3.7 % 09/22/22 17:40 Baso % (Auto) 0.8 % 09/22/22 17:40 Neut # (Auto) 9.66 10^3/uL (1.8-7.7) H 09/22/22 17:40 Lymph # (Auto) 2.2 10^3/uL (0.8-4.8) 09/22/22 17:40 Stafford # (Auto) 0.7 10^3/uL (0.2-0.9) 09/22/22 17:40 Eos # (Auto) 0.5 10^3/uL (0.0-0.8) 09/22/22 17:40 Baso # (Auto) 0.1 10^3/uL (0.0-0.1) 09/22/22 17:40 Nucleated RBC % (auto) 0 % 09/22/22 17:40 Nucleated RBCs # 0.0 /100WBC 09/22/22 17:40 D-Dimer 0.41 ug/mIFEU (0-0.59) 09/22/22 17:40 Sodium 137 mmol/L (136-145) 09/22/22 17:40 Potassium 4.1 mmol/L (3.5-5.1) 09/22/22 17:40 Chloride 99 mmol/L (98-107) 09/22/22 17:40 Carbon Dioxide 27 mmol/L (22-29) 09/22/22 17:40 Anion Gap 15.1 (5-19) 09/22/22 17:40 BUN 14 mg/dL (8-23) 09/22/22 17:40 Creatinine 1.1 mg/dL (0.5-0.9) H 09/22/22 17:40 GFR Calculation 50.3 mL/min (90-130) L 09/22/22 17:40 Glucose 103 mg/dL (65-115) 09/22/22 17:40 Calculated Osmolality 285 mOsm/kg (285-295) 09/22/22 17:40 Calcium 9.2 mg/dL (8.5-10.5) 09/22/22 17:40 Magnesium 1.3 mg/dL (1.7-2.3) L 09/22/22 17:40 Total Bilirubin 0.4 mg/dL (0.15-1.2) 09/22/22 17:40 AST 25 U/L (0-32) 09/22/22 17:40 ALT 21 U/L (0-33) 09/22/22 17:40 Alkaline Phosphatase 119 U/L (35-105) H 09/22/22 17:40 Troponin T Baseline 9 ng/L (0-10) 09/22/22 17:40 Troponin T 120 Minute 8.10 ng/L (0-10) 09/22/22 19:27 Delta Troponin T -0.9 ABS# (0-10) L 09/22/22 19:27 Total Protein 7.3 g/dL (6.6-8.7) 09/22/22 17:40 Albumin 4.1 g/dL (3.5-5.2) 09/22/22 17:40 Globulin 3.2 g/dL (1.3-4.6) 09/22/22 17:40 TSH 2.68 uIU/mL (0.27-4.20) 09/22/22 17:40 Urine Color Yellow (Yellow) 09/22/22 18:36 Urine Appearance Hazy (CLEAR) A 09/22/22 18:36 Urine pH 5 (5-7) 09/22/22 18:36 Ur Specific Comstock 1.015 (1.005-1.030) 09/22/22 18:36 Urine Protein Trace (Negative) 09/22/22 18:36 Urine Glucose (UA) Norm (Normal) 09/22/22 18:36 Urine Ketones Negative (Negative) 09/22/22 18:36 Urine Blood 2+ (Negative) H 09/22/22 18:36 Urine Nitrate Negative (Negative) 09/22/22 18:36 Urine Bilirubin Neg (Negative) 09/22/22 18:36 Urine Urobilinogen Norm mg/dL (Negative) 09/22/22 18:36 Ur Leukocyte Esterase 2+ (Negative) H 09/22/22 18:36 Urine RBC 0-4 /hpf (0-2) H 09/22/22 18:36 Urine WBC 10-15 /hpf (0-5) H 09/22/22 18:36 Ur Squamous Epith Cells 15-25 /hpf (0-5) H 09/22/22 18:36 Amorphous Sediment Not Reportable 09/22/22 18:36 Urine Bacteria 1+ /hpf (NONE) H 09/22/22 18:36 Discharge Plan Discharge Patient Disposition: Placed in Observation Admit Provider: Brendon Welch Clinical Impression: Syncope and collapse, Symptomatic bradycardia Sign Out Sign Out Data: Patient Sign Out occurred on 09/22/22 at 18:47. Patient's care was discussed, and care was transferred from to Inderjit Abarca MD. Coding Level of Care Code ED Video Game Technician for Zac Zaragoza
[2022-09-22 18:22] LABS: Basophils # 0.1 10^3/uL (0.0-0.1); Basophils % 0.8 %; Eosinophils # 0.5 10^3/uL (0.0-0.8); Eosinophils % 3.7 %; Hematocrit 38.5 % (37.0-47.0); Hemoglobin 12.9 g/dL (11.5-15.3); Lymphocytes # 2.2 10^3/uL (0.8-4.8); Lymphocytes % 16.4 %; Mean Corpuscular HGB Conc 33.5 g/dL (30.0-36.0); Mean Corpuscular Hemoglobin 31.2 pg (28.0-34.0); Mean Platelet Volume 9.7 fL (7.4-10.4); Monocytes # 0.7 10^3/uL (0.2-0.9); Monocytes % 5.2 %; Neutrophils # 9.66 10^3/uL (1.8-7.7); Neutrophils % 73.4 %; Nucleated Red Blood Cells % 0 %; Platelet Count 386 10^3/cmm (130-400); Red Blood Count 4.14 10^6/uL (4.1-5.3); White Blood Count 13.2 10^3/uL (4.0-10.0)
[2022-09-22 18:36] LABS: Troponin(5th) Baseline 9 ng/L (0-10)
[2022-09-22 18:43] LABS: Alanine Aminotransferase 21 U/L (0-33); Albumin Level 4.1 g/dL (3.5-5.2); Alkaline Phosphatase 119 U/L (35-105); Blood Urea Nitrogen 14 mg/dL (8-23); Calcium 9.2 mg/dL (8.5-10.5); Carbon Dioxide 27 mmol/L (22-29); Chloride 99 mmol/L (98-107); Globulin 3.2 g/dL (1.3-4.6); Glomerular Filtration Rate 50.3 mL/min (90-130); Glucose 103 mg/dL (65-115); Osmolality Calculated 285 mOsm/kg (285-295); Sodium 137 mmol/L (136-145); Thyroid Stimulating Hormone 2.68 uIU/mL (0.27-4.20); Total Bilirubin 0.4 mg/dL (0.15-1.2); Total Protein 7.3 g/dL (6.6-8.7)
[2022-09-22 18:44] LABS: Anion Gap 15.1 (5-19); Aspartate Amino Transferase 25 U/L (0-32); Potassium 4.1 mmol/L (3.5-5.1)
[2022-09-22 18:54] LABS: Add Urine Culture? No; Add Urine Microscopic? YES; Bacteria Urine 1+ /hpf; Bilirubin Urine Neg (Negative); Blood Urine 2+ (Negative); Glucose Urine UA Norm (Normal); Ketones Urine Negative (Negative); Leukocyte Esterase Urine 2+ (Negative); Nitrate Urine Negative (Negative); Protein Urine Trace (Negative); RBC Urine 0-4 /hpf (0-2); Specific Gravity, Urine 1.015 (1.005-1.030); Squamous Epithelial Cell Urine 15-25 /hpf (0-5); Urine Appearance Hazy (CLEAR); Urine Color Yellow (Yellow); Urobilinogen Urine Norm (Negative); pH Urine 5 (5-7)
[2022-09-22 19:37] LABS: Magnesium 1.3 mg/dL (1.7-2.3)
[2022-09-22 19:51] LABS: Troponin 5 2HR Delta -0.9 ABS# (0-10)
[2022-09-22] MEDS: magnesium sulfate premix 2 GM/50 ML PIGGYBACK IV (20:11)
--- NOTE | 2022-09-22 20:30 | P.HP_ITS ---
Providers/Chief Complaint Admitting Physician: Brendon Welch Primary Care Provider: Gladis Correia Chief Complaint: DIZZY/ SYNCOPE/ BLACKBURN/ HYPOTENSIVE History of Present Illness 62-year-old lady with history of hypertension was dizzy and lightheaded at her primary provider's office visit, heart rates noted in her 30s on assessment by EMS. She had a syncopal episode with chest pain. Received atropine. Heart rates reportedly improved into the 50s. She denies any recent changes in metoprolol dosing. Denies chest pain or pressure. Had a stress test a month ago which was negative for ischemia. In ER noted mild hypomagnesemia, 1.3, received magnesium. TSH is 2.68. Troponin at baseline and 2-hours without elevation. She denies any other issues within the last several days. She does state that she had previously had a 14-day heart monitor due to bradycardia which was arranged by her primary provider. She makes her own decisions currently, in case she could not do so names her sister is surrogate decision-maker. Review of Systems Const: Denies: fever(s), chills, body aches or malaise Eyes: Denies: change in vision, eye discomfort or eye redness ENMT: Denies: throat pain, oral sores or ear or mastoid pain Card: Denies: chest pain, edema, pre-syncope or dyspnea on exertion Resp: Denies: dyspnea, productive cough, change in phlegm color or hemoptysis GI: Denies: abdominal pain, nausea, vomiting, diarrhea, constipation, hematochezia or melena : Denies: flank pain, urinary frequency or hematuria Musc: Denies: back pain, joint swelling or joint redness Skin/Breast: Denies: rash or new lesions Neuro: Denies: headache(s), numbness in extremities, weakness in extremities, dizziness, confusion or seizure-like activity Endo: Denies: polyuria or polydipsia García/Lymph: Denies: easy bleeding or tender lymph nodes All/Imm: Denies: urticaria or tongue swelling Medications/Allergies Home Medications Medication Instructions Recorded Confirmed Last Taken Type metformin 500 mg tablet 500 mg PO BID 06/10/21 07/29/22 07/01/21 History atorvastatin 40 mg tablet 40 mg PO DAILY 06/26/21 07/29/22 07/01/21 History cariprazine 3 mg capsule (Vraylar) 3 mg PO DAILY 06/26/21 07/29/22 07/02/21 History losartan 50 mg tablet 50 mg PO BID 06/26/21 07/29/22 07/01/21 History sumatriptan succinate 50 mg tablet 50 mg PO PRN MIGRAINES 06/26/21 07/29/22 Unknown History amlodipine 5 mg tablet 5 mg PO DAILY 07/29/22 07/29/22 Unknown History cholecalciferol (vitamin D3) 1,250 50,000 unit PO .weekly 07/29/22 07/29/22 Unknown History mcg (50,000 unit) capsule hydrochlorothiazide 25 mg tablet 25 mg PO DAILY 07/29/22 07/29/22 Unknown History metoprolol tartrate 50 mg tablet 50 mg PO BID 07/29/22 07/29/22 Unknown History omeprazole 20 mg capsule,delayed 20 mg PO DAILY 07/29/22 07/29/22 Unknown History release Allergies Allergy/AdvReac Type Severity Reaction Status Date / Time No Known Allergies Allergy Verified 09/22/22 17:24 PFSH Acute PFSH: Medical History Bilateral renal cysts Chronic back pain Diabetes Family history of ischemic heart disease and other diseases of the circulatory system Family history of kidney cancer Fibromyalgia HTN (hypertension) Hyperlipidemia Irritable bowel syndrome with diarrhea Surgical History History of back surgery History of cervical spinal surgery History of cholecystectomy History of hysterectomy History of knee replacement History of rotator cuff surgery Family History Father , AT 88 Heart attack Diabetes Mother , AT AGE 85 Heart attack Diabetes Sister Heart attack Social History Smoking and tobacco status: former smoker (9 years ) Alcohol intake: never Marital status: Current occupational status: retired and disabled Vitals/I&O/Wt Last Vital Signs Temp 97.9 F 09/22/22 20:15 Pulse 54 L 09/22/22 20:15 Resp 18 09/22/22 20:15 BP 152/68 09/22/22 20:15 Pulse Ox 96 09/22/22 20:15 O2 Del Method 09/22/22 20:15 Weight last 48 hrs Weight 70.307 kg Physical Exam Const: COMMON NORMALS: patient oriented x3 and alert GENERAL APPEARANCE: cooperative ORIENTATION/CONSCIOUSNESS: Yes awake HENMT: COMMON NORMALS: oropharynx normal Neck/C-Spine: COMMON NORMALS: no JVD Resp: COMMON NORMALS: normal respiratory effort and clear to auscultation bilaterally AUSCULTATION: clear to auscultation bilaterally Cardio: COMMON NORMALS: no JVD, regular rhythm, S1 normal heart sound present, S2 normal heart sound present and No murmurs present (Cardio) RATE: javi cardic RHYTHM: regular rhythm HEART SOUNDS: S1 normal heart sound present and S2 normal heart sound present GI: COMMON NORMALS: Normal to inspection, nondistended, normoactive bowel sounds present, Soft to palpation and non-tender PALPATION: Yes Soft to palpation Extremity: COMMON NORMALS: no joint enlargement and no pedal edema Neuro: COMMON NORMALS: patient oriented x3 and moves all extremities SENSORIUM/ORIENTATION: Yes alert Skin: COMMON NORMALS: no rashes or lesions noted GENERAL SKIN EXAM: no rashes or lesions noted Data 09/22/22 17:40 09/22/22 17:40 A&P Assessment and plan (1) Symptomatic bradycardia: Heart rate into the 30s, also had a syncopal episode with chest pain. Metoprolol most likely culprit, sometimes amlodipine may contribute as well. Discussed with her with holding metoprolol, she apparently takes it only for hypertension. Would not resume at discharge. Monitor blood pressure and heart rates with amlodipine. Also noted mild hypomagnesemia, received magnesium replacement. Requesting recheck electrolytes with BMP, magnesium level. TSH noted unremarkable. Complete troponin EKG series, so far troponin without elevation, no chest pain. No sign of ischemia so far. Assess TTE. Has had a stress test a month ago, depending on additional findings and symptoms consider if needs additional work- up for ischemia. Depending on heart rates, consider needs repeat cardiac monitoring after discharge. Discussed with ER physician. ER documentation reviewed. (2) Syncope and collapse: TTE. Monitor on telemetry. In the morning consider orthostatics. Syncope accompanied by chest pain. Complete troponin EKG series. Follow-up TTE. Assess D-dimer. Plan HTN: Continue amlodipine, stop metoprolol, ARB. Cardiac diet. Consider if needs escalation with stopping metoprolol. Leukocytosis: 13.2. No signs of infection. Chest x-ray without acute findings. UA appears likely contaminated, no urinary symptoms. She denies any new symptoms, otherwise has been at baseline state of health in the last several days. Follow-up CBC requested. Contaminated UA: 10-10 WBC but 50-25 SCC. 1+ bacteria. No urinary symptoms. Please follow-up repeat UA in the. DM2: Mild SSI HLD: Continue statin IBS Other problems Attestations Medical Necessity Statement*: Place in observation for additional assessment management of symptomatic bradycardia, syncope with chest pain. Diagnoses Symptomatic bradycardia R00.1 Syncope and collapse R55
--- NOTE | 2022-09-22 20:32 | USCV_ITS ---
Selina Henning Age: 61 Gender: F : 1960 Exam Date: 09/22/2022 21:21 Ordering Phys: Brendon Welch MD Technologist: NIDA Exam Location: [facility] – [place] Indication: bradycardia, syncope, chest pain. No history of cardiac intervention per patient. BP: 152 / 68 HR: 54 Rhythm: Sinus bradycardia Technical Quality: Adequate MEASUREMENTS (Male / Female) Normal Values 2D ECHO LV Diastolic Diameter PLAX 3.8 cm 4.2 - 5.9 / 3.9 - 5.3 cm LV Systolic Diameter PLAX 2.5 cm IVS Diastolic Thickness 1.1 cm 0.6 - 1.0 / 0.6 - 0.9 cm IVS Systolic Thickness 1.3 cm LVPW Diastolic Thickness 1.2 cm 0.6 - 1.0 / 0.6 - 0.9 cm LVPW Systolic Thickness 1.0 cm LVOT Diameter 1.8 cm LV Ejection Fraction 2D Teich 66.1 % LV Ejection Fraction MOD 2C 66.5 % LV Ejection Fraction 2C AL 66.4 % LA Diameter 3.4 cm LA Width 2.7 cm LA Height 5.3 cm RA Width 2.5 cm RA Height 3.5 cm Aorta at Sinotubular Diameter 2.3 cm IVC Diameter 1.8 cm M-MODE Aortic Annulus Diameter 2.7 cm LA Ao Ratio MM 1.3 MV E Point Septal Separation 0.5 cm DOPPLER AV Peak Velocity 160.0 cm/s LVOT Peak Velocity 111.0 cm/s AV Area Cont Eq vti 1.7 cm squared AV Area Cont Eq pk 1.8 cm squared MV Area PHT 3.2 cm squared Mitral E to A Ratio 1.2 MV E' Velocity 54.0 cm/s Mitral E to MV E' Ratio 9.4 Mitral E to LV E' Lateral Ratio 7.8 Mitral E to LV E' Septal Ratio 12.2 TR Peak Velocity 233.3 cm/s TR Peak Gradient 21.8 mmHg TV Peak E Velocity 41.0 cm/s Right Atrial Pressure 5.0 mmHg Pulmonary Artery Systolic Pressu 26.8 mmHg PV Peak Velocity 134.0 cm/s RV Acceleration Time 0.1 s RV Ejection Time 0.3 s RV AcT/ET 0.1 FINDINGS Left Ventricle Normal left ventricular size, systolic function and wall thickness, with no regional wall motion abnormalities.left ventricular ejection fraction is estimated at 60 %. Normal left ventricular filling pressure. Right Ventricle The right ventricle is normal in size and function. Right Atrium The right atrium is normal in size. Left Atrium The left atrium is normal in size. Mitral Valve Structurally normal mitral valve without significant stenosis or prolapse. Trace mitral regurgitation. Aortic Valve Moderate aortic valve calcification. No aortic valve stenosis. Trace aortic regurgitation. Tricuspid Valve Structurally normal tricuspid valve without significant stenosis and trace regurgitation. Pulmonary artery systolic pressure is normal. Pulmonic Valve Structurally normal pulmonic valve without significant stenosis. There is no pulmonic regurgitation. Pericardium Normal pericardium without effusion. Aorta Normal ascending aorta dimension. IVC The inferior vena cava appears normal. CONCLUSIONS 1-Normal left ventricular size, systolic function and wall thickness, with no regional wall motion abnormalities.left ventricular ejection fraction is estimated at 60 %. Normal left ventricular filling pressure. 2-Structurally normal mitral valve without significant stenosis or prolapse. Trace mitral regurgitation. 3-Moderate aortic valve calcification. No aortic valve stenosis. Trace aortic regurgitation. 4-There is no pericardial effusion. 5-Right atrial pressure is around 5 mm of mercury. Izaiah Lacnaster MD (Electronically Signed) Final Date: 23 September 2022 17:13 S
[2022-09-22] MEDS: acetaminophen 325 mg Tablet 650 MG PO (20:54)
[2022-09-22 21:06] LABS: D Dimer 0.41 ug/mIFEU (0-0.59)
--- NOTE | 2022-09-22 21:10 | ECG_ITS ---
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
--- NOTE | 2022-09-22 23:21 | ECG_ITS ---
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1960 Requested By: Serge Gallo Order Number: [id number] Reading MD: MONSTER VILLAR Measurements Intervals [place] Rate: 60 P: 29 NE: 174 QRS: 28 QRSD: 92 T: 28 QT: 411 QTc: 413 Interpretive Statements SINUS RHYTHM RIGHT ATRIAL ENLARGEMENT [0.3mV P-WAVE] LEFT ATRIAL ENLARGEMENT [-0.15mV P-WAVE IN V1/V2] Compared to ECG 09/22/2022 21:10:05 Atrial abnormality now present Sinus bradycardia no longer present Electronically Signed On 09-23-2022 20:33:29 CDT by MONSTER VILLAR [id number]
[2022-09-22 23:58] LABS: Troponin 5 6HR 8.83 ng/L (0-10)
[2022-09-23] VITALS (10 sets, daily range): BP systolic 110–135; BP diastolic 55–89; PULSE 50–80; RESP 17–23; TEMP 36.6–36.8; O2SAT 91–96
[2022-09-23 00:26] LABS: Troponin 5 6HR Delta 0.73 ng/L (0-12)
[2022-09-23 04:37] LABS: Basophils # 0.1 10^3/uL (0.0-0.1); Basophils % 1.3 %; Eosinophils # 0.5 10^3/uL (0.0-0.8); Eosinophils % 4.9 %; Hematocrit 34.1 % (37.0-47.0); Hemoglobin 11.2 g/dL (11.5-15.3); Lymphocytes % 27.4 %; Mean Corpuscular HGB Conc 32.8 g/dL (30.0-36.0); Mean Corpuscular Hemoglobin 30.4 pg (28.0-34.0); Mean Corpuscular Volume 92.7 fl (81-99); Mean Platelet Volume 9.7 fL (7.4-10.4); Monocytes # 0.9 10^3/uL (0.2-0.9); Monocytes % 7.9 %; Neutrophils # 6.37 10^3/uL (1.8-7.7); Neutrophils % 58.2 %; Nucleated Red Blood Cells % 0 %; Platelet Count 353 10^3/cmm (130-400); Red Blood Count 3.68 10^6/uL (4.1-5.3); White Blood Count 10.9 10^3/uL (4.0-10.0)
[2022-09-23 04:59] LABS: Anion Gap 17.5 (5-19); Blood Urea Nitrogen 17 mg/dL (8-23); Calcium 8.9 mg/dL (8.5-10.5); Carbon Dioxide 26 mmol/L (22-29); Chloride 101 mmol/L (98-107); Glomerular Filtration Rate 41.5 mL/min (90-130); Glucose 111 mg/dL (65-115); Magnesium 2.1 mg/dL (1.7-2.3); Osmolality Calculated 294 mOsm/kg (285-295); Potassium 3.5 mmol/L (3.5-5.1); Sodium 141 mmol/L (136-145)
--- NOTE | 2022-09-23 10:56 | P.PN_ITS ---
Subjective Subjective: Seen this morning. No longer feeling dizzy. Heart rate 50s on telemetry. Vitals/I&O/Wt Last Vital Signs Temp 98.2 F 09/23/22 07:31 Pulse 64 09/23/22 07:31 Resp 20 H 09/23/22 07:31 BP 110/57 09/23/22 07:31 Pulse Ox 95 09/23/22 07:31 O2 Del Method 09/23/22 07:31 09/22/22 09/23/22 09/23/22 22:59 06:59 14:59 Intake Total 290 / 290 360 / 360 Balance 290 / 290 360 / 360 Weight last 48 hrs Weight 70.307 kg Physical Exam Const: COMMON NORMALS: patient oriented x3 and alert GENERAL APPEARANCE: cooperative ORIENTATION/CONSCIOUSNESS: Yes awake HENMT: COMMON NORMALS: oropharynx normal Neck/C-Spine: COMMON NORMALS: no JVD Resp: COMMON NORMALS: normal respiratory effort and clear to auscultation bilaterally AUSCULTATION: clear to auscultation bilaterally Cardio: COMMON NORMALS: no JVD, regular rhythm, S1 normal heart sound present, S2 normal heart sound present and No murmurs present (Cardio) RATE: bradycardic RHYTHM: regular rhythm HEART SOUNDS: S1 normal heart sound present and S2 normal heart sound present GI: COMMON NORMALS: Normal to inspection, nondistended, normoactive bowel sounds present, Soft to palpation and non-tender PALPATION: Yes Soft to palpation Extremity: COMMON NORMALS: no joint enlargement and no pedal edema Neuro: COMMON NORMALS: patient oriented x3 and moves all extremities SENSORIUM/ORIENTATION: Yes alert Skin: COMMON NORMALS: no rashes or lesions noted GENERAL SKIN EXAM: no rashes or lesions noted Data 09/23/22 02:54 09/23/22 02:54 A&P Assessment and plan (1) Symptomatic bradycardia: Heart rate into the 30s, also had a syncopal episode with chest pain. Metoprolol most likely culprit, sometimes amlodipine may contribute as well. Discussed with her with holding metoprolol, she apparently takes it only for hypertension. Would not resume at discharge. Monitor blood pressure and heart rates with amlodipine. Also noted mild hypomagnesemia, received magnesium replacement. Requesting recheck electrolytes with BMP, magnesium level. TSH noted unremarkable. Complete troponin EKG series, so far troponin without elevation, no chest pain. No sign of ischemia so far. Assess TTE. Has had a stress test a month ago, depending on additional findings and symptoms consider if needs additional work- up for ischemia. Depending on heart rates, consider needs repeat cardiac monitoring after discharge. Discussed with ER physician. ER documentation reviewed. (2) Syncope and collapse: TTE. Monitor on telemetry. Syncope accompanied by chest pain. Complete troponin EKG series. Follow-up TTE. Assess D-dimer. Check orthostatics today. Plan HTN: Continue amlodipine, stop metoprolol, ARB. Cardiac diet. Consider if needs escalation with stopping metoprolol. Leukocytosis: 13.2. No signs of infection. Chest x-ray without acute findings. UA appears likely contaminated, no urinary symptoms. She denies any new symptoms, otherwise has been at baseline state of health in the last several days. Follow-up CBC requested. Contaminated UA: 10-10 WBC but 50-25 SCC. 1+ bacteria. No urinary symptoms. Please follow-up repeat UA in the. DM2: Mild SSI HLD: Continue statin IBS Other problems Attestations Medical Necessity Statement*: Place in observation for additional assessment management of symptomatic bradycardia, syncope with chest pain. Diagnoses Symptomatic bradycardia R00.1 Syncope and collapse R55
[2022-09-23] MEDS: acetaminophen 325 mg Tablet 650 MG PO (17:19)
[2022-09-23] MEDS: ondansetron 2 mg/ML SDV 2 mL 4 MG IVP (20:42)
[2022-09-23 21:04] LABS: Add Urine Microscopic? NO; Charge for UA Resulting for Rev
[2022-09-23 21:11] LABS: Bilirubin Urine Neg (Negative); Blood Urine Neg (Negative); Glucose Urine UA Norm (Normal); Ketones Urine Negative (Negative); Leukocyte Esterase Urine Negative (Negative); Nitrate Urine Negative (Negative); Protein Urine Neg (Negative); Specific Gravity, Urine 1.015 (1.005-1.030); Urine Appearance Clear (CLEAR); Urine Color Colorless (Yellow); Urobilinogen Urine Norm (Negative); pH Urine 5 (5-7)
[2022-09-23] MEDS: acetaminophen 1,000 MG/100 ML PIGGYBACK 400 MG IV (22:40)
[2022-09-23] MEDS: morphine 4 mg/mL SDV 1 mL IVP (22:41)
[2022-09-24] VITALS (8 sets, daily range): BP systolic 116–137; BP diastolic 66–99; PULSE 63–84; RESP 16–19; TEMP 36.6–37.1; O2SAT 93–99
[2022-09-24 04:35] LABS: Basophils # 0.1 10^3/uL (0.0-0.1); Basophils % 1.3 %; Eosinophils # 0.7 10^3/uL (0.0-0.8); Eosinophils % 8.2 %; Hematocrit 33.5 % (37.0-47.0); Hemoglobin 11.3 g/dL (11.5-15.3); Lymphocytes # 3.2 10^3/uL (0.8-4.8); Lymphocytes % 37.4 %; Mean Corpuscular HGB Conc 33.7 g/dL (30.0-36.0); Mean Corpuscular Hemoglobin 30.8 pg (28.0-34.0); Mean Corpuscular Volume 91.3 fl (81-99); Mean Platelet Volume 9.3 fL (7.4-10.4); Monocytes # 0.6 10^3/uL (0.2-0.9); Monocytes % 7.5 %; Neutrophils # 3.86 10^3/uL (1.8-7.7); Neutrophils % 45.4 %; Nucleated Red Blood Cells % 0 %; Platelet Count 340 10^3/cmm (130-400); Red Blood Count 3.67 10^6/uL (4.1-5.3); Red Cell Distribution Width 12.8 % (12.1-15.1); White Blood Count 8.5 10^3/uL (4.0-10.0)
[2022-09-24 04:55] LABS: Anion Gap 14.2 (5-19); Blood Urea Nitrogen 13 mg/dL (8-23); Calcium 9.2 mg/dL (8.5-10.5); Carbon Dioxide 28 mmol/L (22-29); Chloride 100 mmol/L (98-107); Glomerular Filtration Rate 63.4 mL/min (90-130); Glucose 110 mg/dL (65-115); Osmolality Calculated 289 mOsm/kg (285-295); Potassium 3.2 mmol/L (3.5-5.1); Sodium 139 mmol/L (136-145)
[2022-09-24] MEDS: ondansetron 2 mg/ML SDV 2 mL 4 MG IVP (12:11)
[2022-09-24] MEDS: potassium chloride ER 20 mEq Tablet 40 MEQ PO (12:15)
[2022-09-24] MEDS: pantoprazole DR 40 mg Tablet PO (13:46)
--- NOTE | 2022-09-24 16:51 | P.CONIM_ITS ---
Providers/Reason For Consult Consulting Physician/Specialty*: Dr. Bridges Reason for Consult*: Bradycardia Requesting Physician: Dr. Bridges Attending Physician: Sherry Bridges MD Primary Care Provider: Gladis Correia History of Present Illness History of Present Illness Selina Henning is a 61 year old female past medical history significant for hypertension hyperlipidemia was admitted with bradycardia dizziness and syncope she was noted to have bradycardia with heart rate dropped down into 40s and 30s at rest without any significant heart block. She was on beta-ursula which was stopped. Echocardiogram was obtained which showed normal ejection fraction no significant valvular abnormality. Patient recently had negative stress test wi th good chronotropic competence, since metoprolol was stopped her heart rate has improved now her heart rate is in 60s to 70s occasionally dropped down to 50s without any significant blockage. She denies chest pain PND orthopnea. Medications/Allergies Home Medications Medication Instructions Recorded Confirmed Last Taken Type metformin 500 mg tablet 500 mg PO BID 06/10/21 09/22/22 09/22/22 08:00 History atorvastatin 40 mg tablet 40 mg PO DAILY 06/26/21 09/22/22 09/21/22 21:00 History cariprazine 3 mg capsule (Vraylar) 3 mg PO DAILY 06/26/21 09/22/22 09/22/22 08:00 History losartan 50 mg tablet 50 mg PO BID 06/26/21 09/22/22 09/22/22 08:00 History sumatriptan succinate 50 mg tablet 50 mg PO PRN MIGRAINES 06/26/21 09/22/22 Unknown History amlodipine 5 mg tablet 5 mg PO DAILY 07/29/22 09/22/22 09/22/22 08:00 History cholecalciferol (vitamin D3) 1,250 50,000 unit PO .weekly 07/29/22 09/22/22 Unknown History mcg (50,000 unit) capsule hydrochlorothiazide 25 mg tablet 25 mg PO DAILY 07/29/22 09/22/22 09/22/22 20:00 History metoprolol tartrate 50 mg tablet 50 mg PO BID 07/29/22 09/22/22 09/22/22 08:00 History omeprazole 20 mg capsule,delayed 20 mg PO DAILY 07/29/22 09/22/22 09/22/22 08:00 History release Allergies Allergy/AdvReac Type Severity Reaction Status Date / Time No Known Allergies Allergy Verified 09/22/22 17:24 Current Medications Generic Name Dose Route Start Last Admin Trade Name Freq PRN Reason Stop Dose Admin Acetaminophen 650 mg 09/22/22 20:38 09/23/22 17:19 Acetaminophen 325 Mg Tablet PO 650 mg Q6H PRN Administration Mild/Mod Pain Or Temp >/= 101 Ondansetron HCl 4 mg 09/22/22 20:38 09/24/22 12:11 Ondansetron 2 Mg/Ml Sdv 2 Ml IVP 4 mg Q8H PRN Administration vomiting, or N/V if npo Pantoprazole Sodium 40 mg 09/24/22 13:00 09/24/22 13:[address] 40 Mg Tablet PO 40 mg DAILY BHARGAVI Administration PFSH Acute PFSH: Medical History Bilateral renal cysts Chronic back pain Diabetes Family history of ischemic heart disease and other diseases of the circulatory system Family history of kidney cancer Fibromyalgia HTN (hypertension) Hyperlipidemia Irritable bowel syndrome with diarrhea Surgical History History of back surgery History of cervical spinal surgery History of cholecystectomy History of hysterectomy History of knee replacement History of rotator cuff surgery Family History Father , AT 88 Heart attack Diabetes Mother , AT AGE 85 Heart attack Diabetes Sister Heart attack Social History Smoking and tobacco status: former smoker (9 years ) Alcohol intake: never Marital status: Current occupational status: retired and disabled Vitals/I&O/Wt Last Vital Signs Temp 98.8 F 09/24/22 15:06 Pulse 79 09/24/22 15:06 Resp 18 09/24/22 15:06 BP 126/86 09/24/22 15:06 Pulse Ox 95 09/24/22 15:06 O2 Del Method 09/24/22 15:06 09/24/22 09/24/22 09/24/22 06:59 14:59 22:59 Intake Total 300 / 1860 702 / 702 Balance 300 / 1860 702 / 702 Weight last 48 hrs Weight 155 lb Physical Exam Narrative: Alert awake oriented x3 No JVD cyanosis or icterus Heart regular sinus Abdominal soft nontender nondistended Lungs decreased breath sound 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 Data 09/24/22 04:22 09/24/22 04:22 EKG 1: My Interpretation: Sinus rhythm, normal axis nonspecific ST changes otherwise no significant abnormality A&P Assessment and plan (1) Symptomatic bradycardia: Patient may have underlying conduction abnormality, there is no intermittent heart block noted on the telemetry we agree with discontinuing metoprolol and sending home patient on event monitor. Further plan will be advised as per progress patient. Echocardiogram showed normal structural heart, stress test was negative for ischemia with good chronotropic competence (2) HTN (hypertension): Agree with amlodipine and losartan. Optimize medication to control the blood p ressure. Coding Level of Care Code Acute Code for Chg Fwd Diagnoses Symptomatic bradycardia R00.1 HTN (hypertension) I10
--- NOTE | 2022-09-24 16:58 | P.DS_ITS ---
Discharge Providers Date of Admission: 09/22/22 20:07 Date of Discharge: September 24, 2022 Attending Provider at Admission: Brendon Welch Attending Provider at Discharge: Sherry Bridges MD Primary Care Provider: Gladis Correia Diagnoses at Discharge Discharge Diagnosis (1) Symptomatic bradycardia: Status: Resolved (2) Syncope and collapse: Status: Resolved Reason for Visit Reason for Visit: DIZZY/ SYNCOPE/ BLACKBURN/ HYPOTENSIVE Brief History: As per Dr. Dover 62-year-old lady with history of hypertension was dizzy and lightheaded at her primary provider's office visit, heart rates noted in her 30s on assessment by EMS.? She had a syncopal episode with chest pain.? Received atropine.? Heart rates reportedly improved into the 50s.? She denies any recent changes in metoprolol dosing.? Denies chest pain or pressure.? Had a stress test a month ag o which was negative for ischemia.? In ER noted mild hypomagnesemia, 1.3, received magnesium.? TSH is 2.68.? Troponin at baseline and 2-hours without elevation.? She denies any other issues within the last several days.? She does state that she had previously had a 14-day heart monitor due to bradycardia which was arranged by her primary provider. Hospital Course Hospital Course Was admitted for bradycardia. Her beta-ursula was stopped. She was set up with an event monitor at discharge. Please see consult note below from cardiology. Patient may have underlying conduction abnormality, there is no intermittent heart block noted on the telemetry we agree with discontinuing metoprolol and sending home patient on event monitor.? Further plan will be advised as per progress patient.? Echocardiogram showed normal structural heart, stress test was negative for ischemia with good chronotropic competence Physical Exam Const: COMMON NORMALS: patient oriented x3 and alert GENERAL APPEARANCE: cooperative ORIENTATION/CONSCIOUSNESS: Yes awake HENMT: COMMON NORMALS: oropharynx normal Neck/C-Spine: COMMON NORMALS: no JVD Resp: COMMON NORMALS: normal respiratory effort and clear to auscultation bilaterally AUSCULTATION: clear to auscultation bilaterally Cardio: COMMON NORMALS: no JVD, regular rhythm, S1 normal heart sound present, S2 normal heart sound present and No murmurs present (Cardio) RATE: bradycardic RHYTHM: regular rhythm HEART SOUNDS: S1 normal heart sound present and S2 normal heart sound present GI: COMMON NORMALS: Normal to inspection, nondistended, normoactive bowel sounds present, Soft to palpation and non-tender PALPATION: Yes Soft to palpation Extremity: COMMON NORMALS: no joint enlargement and no pedal edema Neuro: COMMON NORMALS: patient oriented x3 and moves all extremities SENSORIUM/ORIENTATION: Yes alert Skin: COMMON NORMALS: no rashes or lesions noted GENERAL SKIN EXAM: no rashes or lesions noted Discharge Data Studies Completed and Pending Completed Studies During Hospitalization Category Date Time Status XR chest 1V portable [id number] Stat Exams 09/22/22 17:21 Completed CV. echo complete* [id number] Routine Ultrasound 09/22/22 20:32 Completed Pending at discharge Category Date Time Status Basic Metabolic Panel AM LABS Lab 09/25/22 04:00 Ordered Complete Blood Count w/Auto AM LABS Lab 09/25/22 04:00 Ordered Radiology Impressions Chest X-Ray 09/22/22 17:21 IMPRESSION: No acute findings. Laboratory Results WBC 8.5 10^3/uL (4.0-10.0) 09/24/22 04:22 RBC 3.67 10^6/uL (4.1-5.3) L 09/24/22 04:22 Hgb 11.3 g/dL (11.5-15.3) L 09/24/22 04:22 Hct 33.5 % (37.0-47.0) L 09/24/22 04:22 MCV 91.3 fl (81-99) 09/24/22 04:22 MCH 30.8 pg (28.0-34.0) 09/24/22 04:22 MCHC 33.7 g/dL (30.0-36.0) 09/24/22 04:22 RDW 12.8 % (12.1-15.1) 09/24/22 04:22 Plt Count 340 10^3/cmm (130-400) 09/24/22 04:22 MPV 9.3 fL (7.4-10.4) 09/24/22 04:22 Neut % (Auto) 45.4 % 09/24/22 04:22 Lymph % (Auto) 37.4 % 09/24/22 04:22 [place] % (Auto) 7.5 % 09/24/22 04:22 Eos % (Auto) 8.2 % 09/24/22 04:22 Baso % (Auto) 1.3 % 09/24/22 04:22 Neut # (Auto) 3.86 10^3/uL (1.8-7.7) 09/24/22 04:22 Lymph # (Auto) 3.2 10^3/uL (0.8-4.8) 09/24/22 04:22 [place] # (Auto) 0.6 10^3/uL (0.2-0.9) 09/24/22 04:22 Eos # (Auto) 0.7 10^3/uL (0.0-0.8) 09/24/22 04:22 Baso # (Auto) 0.1 10^3/uL (0.0-0.1) 09/24/22 04:22 Nucleated RBC % (auto) 0 % 09/24/22 04:22 Nucleated RBCs # 0.0 /100WBC 09/24/22 04:22 D-Dimer 0.41 ug/mIFEU (0-0.59) 09/22/22 17:40 Sodium 139 mmol/L (136-145) 09/24/22 04:22 Potassium 3.2 mmol/L (3.5-5.1) L 09/24/22 04:22 Chloride 100 mmol/L (98-107) 09/24/22 04:22 Carbon Dioxide 28 mmol/L (22-29) 09/24/22 04:22 Anion Gap 14.2 (5-19) 09/24/22 04:22 BUN 13 mg/dL (8-23) 09/24/22 04:22 Creatinine 0.9 mg/dL (0.5-0.9) 09/24/22 04:22 GFR Calculation 63.4 mL/min (90-130) L 09/24/22 04:22 Glucose 110 mg/dL (65-115) 09/24/22 04:22 Calculated Osmolality 289 mOsm/kg (285-295) 09/24/22 04:22 Calcium 9.2 mg/dL (8.5-10.5) 09/24/22 04:22 Magnesium 2.1 mg/dL (1.7-2.3) 09/23/22 02:54 Total Bilirubin 0.4 mg/dL (0.15-1.2) 09/22/22 17:40 AST 25 U/L (0-32) 09/22/22 17:40 ALT 21 U/L (0-33) 09/22/22 17:40 Alkaline Phosphatase 119 U/L (35-105) H 09/22/22 17:40 Troponin T Baseline 9 ng/L (0-10) 09/22/22 17:40 Troponin T 120 Minute 8.10 ng/L (0-10) 09/22/22 19:27 Delta Troponin T -0.9 ABS# (0-10) L 09/22/22 19: Troponin T Hi Sens 6Hr 8.83 ng/L (0-10) 09/22/22 23:38 Troponin T Hi Sens 6Hr Delta 0.73 ng/L (0-12) 09/22/22 23:38 Total Protein 7.3 g/dL (6.6-8.7) 09/22/22 17:40 Albumin 4.1 g/dL (3.5-5.2) 09/22/22 17:40 Globulin 3.2 g/dL (1.3-4.6) 09/22/22 17:40 TSH 2.68 uIU/mL (0.27-4.20) 09/22/22 17:40 Urine Color Colorless (Yellow) 09/22/22 20:20 Urine Appearance Clear (CLEAR) 09/22/22 20:20 Urine pH 5 (5-7) 09/22/22 20:20 Ur Specific [place] 1.015 (1.005-1.030) 09/22/22 20:20 Urine Protein Neg (Negative) 09/22/22 20:20 Urine Glucose (UA) Norm (Normal) 09/22/22 20:20 Urine Ketones Negative (Negative) 09/22/22 20:20 Urine Blood Neg (Negative) 09/22/22 20:20 Urine Nitrate Negative (Negative) 09/22/22 20:20 Urine Bilirubin Neg (Negative) 09/22/22 20:20 Urine Urobilinogen Norm mg/dL (Negative) 09/22/22 20:20 Ur Leukocyte Esterase Negative (Negative) 09/22/22 20:20 Urine RBC 0-4 /hpf (0-2) H 09/22/22 18:36 Urine WBC 10-15 /hpf (0-5) H 09/22/22 18:36 Ur Squamous Epith Cells 15-25 /hpf (0-5) H 09/22/22 18:36 Amorphous Sediment Not Reportable 09/22/22 18:36 Urine Bacteria 1+ /hpf (NONE) H 09/22/22 18:36 Vitals Last Vital Signs Temp 98.8 F 09/24/22 15:06 Pulse 79 09/24/22 15:06 Resp 18 09/24/22 15:06 BP 126/86 09/24/22 15:06 Pulse Ox 95 09/24/22 15:06 O2 Del Method 09/24/22 15:06 Discharge Plan Discharge Patient Disposition: Home Condition: Stable Prescriptions: Continued metformin 500 mg tablet 500 mg PO BID amlodipine 5 mg tablet 5 mg PO DAILY hydrochlorothiazide 25 mg tablet 25 mg PO DAILY omeprazole 20 mg capsule,delayed release(DR/EC) 20 mg PO DAILY cholecalciferol (vitamin D3) 1,250 mcg (50,000 unit) capsule 50,000 unit PO .weekly losartan 50 mg tablet 50 mg PO BID atorvastatin 40 mg tablet 40 mg PO DAILY sumatriptan succinate 50 mg tablet 50 mg PO PRN Vraylar 3 mg capsule 3 mg PO DAILY Discontinued metoprolol tartrate 50 mg tablet 50 mg PO BID Discharge Orders: Discharge Order (Routine); Ordered 09/24/22 Ordered By: Sherry Bridges Other Ambulatory Orders: MCT/Event Monitor 21 Days (Routine) Timeframe: 1 Day Facility: [facility] - Location: Radiology Ordered By: Sherry Bridges Referrals: Dyan Espinosa MD [Physician] - 1 month (Please call Dr. Espinosa's Office early tomorrow Wednesday at [phone] to schedule a follow up appointment for 1 month. Thank you. Also, Please talk to Dr. Espinosa's Office about obtaing a 21 day event monitor. Thank you.) Gladis Correia PA-C [Primary Care Provider] - 09/28/22 10:00 am Discharge Diet: Cardiac Discharge Activity: Resume usual activity Patient Instructions: Syncope (DC), Bradycardia (DC), Opioid Safety Discharge Attestations Time Spent in Discharge Care*: less than 30 min Quality Metrics Clinical Quality Measures [ No reported AMI, CVA or VTE this stay] Coding Level of Care Code Acute Code for Chg Fwd Diagnoses Symptomatic bradycardia R00.1 Syncope and collapse R55
== END 2022-09-24 18:53 | disposition home or self-care (01) ==
LOC: ER 19:59 → CSU 20:08
PROVIDERS: Family Medicine; Admitting Provider Internal Medicine; Emergency Provider Emergency Medicine; PCP Physician Assistant; Visit Provider Internal Medicine
DX: R00.1 Bradycardia, unspecified (principal); R55 Syncope and collapse; I10 Essential (primary) hypertension; E83.42 Hypomagnesemia; E78.5 Hyperlipidemia, unspecified; E11.9 Type 2 diabetes mellitus without complications; Z82.49 Family history of ischemic heart disease and other diseases of the circulatory system; M79.7 Fibromyalgia; Z87.891 Personal history of nicotine dependence; D72.829 Elevated white blood cell count, unspecified; Z79.84 Long term (current) use of oral hypoglycemic drugs
CPT/HCPCS: 36415; 71045; 80048; 80053; 81001; 81003; 83735; 84443; 84484; 85025; 85378; 93005; 93306; 96365; 96375; 96376; 99285; A9270; G0378; J0131; J2270; J2405; J3475

== ENCOUNTER 2022-10-05 15:25 | Outpatient (CLI) | payer MEDICARE, MEDICAID, SELFPAY ==
--- NOTE | 2022-10-05 15:39 | MM_ITS ---
WS: [id number] BILATERAL 3D TOMOSYNTHESIS DIGITAL SCREENING MAMMOGRAPHY WITH CAD CLINICAL INFORMATION: SCREENING HISTORY: Screening mammogram. No current complaints. COMPARISON: None. TECHNIQUE: Bilateral CC and MLO views. FINDINGS: Scattered fibroglandular densities bilaterally. No suspicious focal mass, asymmetry, calcifications, or architectural distortion. No evidence of malignancy. MM/[place] [id number] IMPRESSION: BI-RADS: 1-Negative FOLLOW UP: 1 Year Follow-up Recommend return to annual screening mammography.
== END 2022-10-05 15:26 | disposition home or self-care (01) ==
PROVIDERS: PCP Physician Assistant; Visit Provider Physician Assistant
DX: Z12.31 Encounter for screening mammogram for malignant neoplasm of breast (principal)
CPT/HCPCS: 77063; 77067

== ENCOUNTER → 2022-11-09 12:20 | Outpatient (BNVA) | payer MEDICARE, MEDICAID, SELFPAY | PROVIDERS: PCP Physician Assistant; Visit Provider Nurse Practitioner Family | DX: I10 Essential (primary) hypertension (principal); Z87.891 Personal history of nicotine dependence | CPT/HCPCS: 99213 ==

== ENCOUNTER → 2023-09-08 09:33 | Outpatient (BNVA) | payer OTHER, MEDICAID, SELFPAY | PROVIDERS: PCP Physician Assistant; Referring Provider Physician Assistant; Visit Provider Psychiatry & Neurology Neurology | DX: G25.2 Other specified forms of tremor (principal); R26.81 Unsteadiness on feet; R29.3 Abnormal posture; Z87.891 Personal history of nicotine dependence | CPT/HCPCS: 99203 ==

== ENCOUNTER 2023-09-20 09:36 | Outpatient (CLI) | payer OTHER, MEDICAID, SELFPAY ==
--- NOTE | 2023-09-20 10:15 | USCV_ITS ---
Selina Henning Age: 62 Gender: F : 1960 Exam Date: 09/20/2023 09:49 Ordering Phys: Yimi Bonilla MD Technologist: NEIL [place]am [place] [facility] [place] Indication: unsteadiness on feet, unspecified tremors Risk Factors: None Previous Vascular Surgery: none Right Brachial BP: / Left Brachial BP: / Right Left Velocity (cm/s) Spectral Plaque Velocity (cm/s) Spectral Plaque Syst/Diast Broadening Syst/Diast Broadening 90.00/ 25.10 None Prox CCA 81.30 / 24.00 None 91.10/ 23.50 None Mid CCA 81.30 / 21.90 None 57.50/ 26.10 None Distal CCA 65.90 / 18.90 None 82.70/ 17.00 None Prox ICA 57.20 / 20.00 None 69.90/ 26.10 None Mid ICA 79.00 / 33.10 None 86.90/ 34.60 None Distal ICA 87.10 / 20.40 None 126.50 None ECA 111.90 20.6 None 1.60 ICA/CCA 1.30 Antegrade Vertebral Antegrade 73.30/ 27.90 cm/s 47.70/ cm/s Tri Subclavian Tri 127.1 71.90 0 FINDINGS Comparison: none available. No significant elevation of systolic or diastolic velocities. Waveforms are normal. Mild bilateral carotid plaque. Antegrade vertebral arteries. CONCLUSIONS Bilateral ICA stenosis less than 50%. Dr. Etelvina Huntley DO (Electronically Signed) Final Date: 21 September 2023 08:45 S
== END 2023-09-20 09:37 | disposition home or self-care (01) ==
LOC: RAD 09:37
PROVIDERS: PCP Physician Assistant; Visit Provider Psychiatry & Neurology Neurology
DX: I65.23 Occlusion and stenosis of bilateral carotid arteries (principal)
CPT/HCPCS: 93880

== ENCOUNTER 2023-10-15 09:34 | Outpatient (CLI) | payer OTHER, MEDICAID, SELFPAY ==
--- NOTE | 2023-10-15 10:15 | MR_ITS ---
WS: [id number] MRI BRAIN WITH AND WITHOUT CONTRAST HISTORY: R25.1 - Tremor, unspecified COMPARISON: 10/04/2014 TECHNIQUE: Multiplanar imaging performed through the brain with MultiHance 15 ml's IV. No acute infarcts are seen. Merritt-white matter differentiation is well preserved. Mild small vessel is chemic type changes within the white matter. These ischemic type changes are new since 10/04/2014. Nor mal hippocampal formations. No susceptibility artifacts or prior lacunar infarcts. Ventricles and extra-axial spaces are normal. Clivus and pituitary gland are normal. Visualized posterior fossa and brainstem are also normal. Postcontrast images are negative for masses or vascular malformations. Dural venous sinuses are normal. Paranasal sinuses: Well aerated with no significant disease. Mastoid air cells: Normal. Calvarium and scalp: Normal. IMPRESSION: 1. No acute infarct, hemorrhage or enhancing mass. 2. Mild small vessel ischemic changes with progression since 2014. No prior infarct. 3. Normal ventricles. 4. Normal hippocampal formations.
[2023-10-15] MEDS: gadobenate dimeglumine 20 mL vial IV (10:34)
== END 2023-10-15 09:35 | disposition home or self-care (01) ==
LOC: RAD 09:34
PROVIDERS: PCP Physician Assistant; Visit Provider Psychiatry & Neurology Neurology
DX: R25.1 Tremor, unspecified (principal)
CPT/HCPCS: 70553; A9577

== ENCOUNTER → 2023-11-09 15:11 | Outpatient (BNVA) | payer OTHER, MEDICAID, SELFPAY | PROVIDERS: PCP Physician Assistant; Visit Provider Psychiatry & Neurology Neurology | DX: G25.2 Other specified forms of tremor (principal); R29.3 Abnormal posture | CPT/HCPCS: 99212 ==

== ENCOUNTER → 2023-12-22 13:06 | Outpatient (BNVA) | payer OTHER, MEDICAID, SELFPAY | PROVIDERS: PCP Physician Assistant; Visit Provider Psychiatry & Neurology Neurology | DX: G25.2 Other specified forms of tremor (principal); M54.31 Sciatica, right side | CPT/HCPCS: 99212 ==

== ENCOUNTER → 2024-02-08 14:13 | Outpatient (BNVA) | payer OTHER, MEDICAID, SELFPAY | PROVIDERS: PCP Physician Assistant; Visit Provider Orthopaedic Surgery | DX: M48.062 Spinal stenosis, lumbar region with neurogenic claudication (principal) | CPT/HCPCS: 36415; 72110; 80053; 81003; 81015; 85025; 99214 ==

== ENCOUNTER 2024-02-17 10:13 | Outpatient (CLI) | payer OTHER, MEDICAID, SELFPAY ==
--- NOTE | 2024-02-17 10:20 | MM_ITS ---
WS: [id number] SCREENING DIGITAL TOMOSYNTHESIS MAMMOGRAM WITH CAD HISTORY: SCREENING COMPARISON: None available. Bilateral CC and MLO with tomosynthesis views submitted. Synthetic mammography reviewed. Computer aid ed detection analyzed. Breast composition: There are scattered areas of fibroglandular density. No suspicious masses, microc alcifications or architectural distortion. MM/[place] [id number] IMPRESSION: BI-RADS: 1-Negative FOLLOW UP: 1 Year Follow-up
== END 2024-02-17 10:14 | disposition home or self-care (01) ==
LOC: MOBLMAM 10:34
PROVIDERS: PCP Family Medicine; Visit Provider Family Medicine
DX: Z12.31 Encounter for screening mammogram for malignant neoplasm of breast (principal)
CPT/HCPCS: 77063; 77067

== ENCOUNTER → 2024-02-18 11:19 | Outpatient (BNVA) | payer OTHER, MEDICAID, SELFPAY | PROVIDERS: PCP Family Medicine; Visit Provider Family Medicine | DX: Z01.818 Encounter for other preprocedural examination (principal) | CPT/HCPCS: 83036; 93005 ==

== ENCOUNTER 2024-03-08 13:10 | Observation (INO) | payer OTHER, MEDICAID, SELFPAY ==
[2024-03-08] VITALS (26 sets, daily range): BP systolic 112–162; BP diastolic 23–95; PULSE 82–126; RESP 12–24; TEMP 36.5–37.5; O2SAT 92–97; BMI 26.6; BMI 27.1
--- NOTE | 2024-03-08 10:26 | W.PM.OPSUD ---
Surgery/Procedure H&P Update DATE OF PROCEDURE: March 08, 2024 DATE H&P PERFORMED: 02/18/24 H&P UPDATE INFORMATION: I have reviewed H&P completed within last 30 days, I have examined patient prior to procedure and No changes to prior documentation PREOP DIAGNOSIS: L4/5 Spondylolisthesis PLANNED PROCEDURE: Operation Date: 03/08/24 11:50 Proposed Procedures p Spinal Fusion PSF(Not Applicable) - Munir Tipton DO s Posterior Lumbar Interbody Fusion PLIF(Not Applicable) - Munir Tipton DO
--- NOTE | 2024-03-08 10:27 | P.ANESASSM_ITS ---
Pre-Anesthetic Assessment Height/Weight: Height 1.63 m Weight 70.307 kg Temp Pulse Resp BP Pulse Ox O2 Del Method 97.7 F 82 18 152/85 95 Room Air 03/08/24 10:08 03/08/24 10:08 03/08/24 10:08 03/08/24 10:08 03/08/24 10:08 03/08/24 10:15 Preop Diagnosis: L4/5 Spondylolisthesis Operation Date: 03/08/24 11:50 Proposed Procedures p Spinal Fusion PSF(Not Applicable) - Munir Tipton DO s Posterior Lumbar Interbody Fusion PLIF(Not Applicable) - Munir Tipton DO Familial anesthetic complications: None Was Beta Josep taken within 24 hours: N/A Was Clonidine taken within 24 hours: N/A Last intake: Intake Last Liquid Date 03/07/24 Last Liquid Time 20:00 Last Solid Date 03/07/24 Last Solid Time 20:00 Social No alcohol and No tobacco Former smoker Exam alert, oriented x 3, clear to auscultation bilaterally and regular rate & rhythm Airway Mallampati: Class II Dentition: false CV/HEM Arrythmia (bradycardia while on metoprolol - stopped, no further issues, no more dizzy spells) and Hypertension Date of Service: 09/22/22 Procedure(s): CV. echo complete* [id number] ?CONCLUSIONS ?1-Normal left ventricular size, systolic function and wall ?thickness, with no regional wall motion abnormalities.left ?ventricular ejection fraction is estimated at 60 %. Normal left?ventricular filling pressure. ?2-Structurally normal mitral valve without significant stenosis?or prolapse.? Trace mitral regurgitation. ?3-Moderate aortic valve calcification.? No aortic valve?stenosis.? Trace aortic regurgitation.? ?4-There is no pericardial effusion. ?5-Right atrial pressure is around 5 mm of mercury. ?Izaiah Lancaster MD ?(Electronically Signed) Date of Service: 08/25/22 Procedure(s): Sestamibi Stress Test Request CONCLUSION: 1. Normal EKG response to treadmill exercise. 2. No exercise-induced chest pain or cardiac arrhythmia. 3. Decreased exercise tolerance, attained a maximum of 4.6 METs.? 4. Baseline normal blood pressure with normal response to exercise. 5. Perfusion scan will be documented separately. Electronically Signed On 08-29-2022 10:35:19 SALES OPERATIONS CONSULTANT by Liza Mauricio M.D. Date of Service: 08/25/22 Procedure(s): NM marco a perf SPECT r/s* [id number] ?IMPRESSIONS ?1. Normal myocardial perfusion imaging with no evidence of ischemia ?2. LV systolic function is normal ?Doe Jackson MD ?(Electronically Signed) GI Gastroesophageal Reflux Disease Metabolic Hyperlipidemia Anesthetic Plan ASA status: 3 Anesthesia: General Risk of > 500 ml blood loss (7ml/kg in children): No Medications/Allergies Home Medications Medication Instructions Recorded Confirmed Last Taken Type atorvastatin 40 mg tablet 40 mg PO DAILY 06/26/21 03/07/24 03/07/24 History losartan 50 mg tablet 50 mg PO BID 06/26/21 03/07/24 03/07/24 History sumatriptan succinate 50 mg tablet 50 mg PO PRN MIGRAINES 06/26/21 03/08/24 Unknown History amlodipine 5 mg tablet 5 mg PO DAILY 07/29/22 03/07/24 03/07/24 History hydrochlorothiazide 25 mg tablet 25 mg PO DAILY 07/29/22 03/07/24 03/07/24 History omeprazole 20 mg capsule,delayed 20 mg PO DAILY 07/29/22 03/07/24 03/07/24 History release acetaminophen 325 mg tablet 325 mg PO QID PRN Pain (Scale 11/09/22 03/07/24 03/06/24 History Score 1-3) metformin 500 mg tablet 500 mg PO DAILY 02/18/24 03/07/24 03/07/24 History mirtazapine 45 mg disintegrating 45 mg translingual .qhs 02/18/24 03/07/24 03/07/24 History tablet prazosin 5 mg capsule 5 mg PO BID 02/18/24 03/07/24 03/07/24 History methocarbamol 500 mg tablet See Rx Instructions .Route 02/25/24 03/07/24 03/07/24 Rx .COMPLEX #60 tabs Allergies Allergy/AdvReac Type Severity Reaction Status Date / Time metoprolol AdvReac Severe heart block Verified 03/08/24 10:10 [facility] Anesthesia Medical History Chronic back pain Fibromyalgia Family history of ischemic heart disease and other diseases of the circulatory system Hyperlipidemia Diabetes Irritable bowel syndrome with diarrhea HTN (hypertension) Family history of kidney cancer Bilateral renal cysts Surgical History History of hysterectomy History of rotator cuff surgery History of cholecystectomy History of back surgery History of knee replacement History of cervical spinal surgery Family History Father , AT 88 Heart attack Diabetes Mother , AT AGE 85 Heart attack Diabetes Sister Heart attack Social History Smoking and tobacco/nicotine status: never used tobacco/nicotine Alcohol intake: never Substance/Drug Use: never Marital status: Current occupational status: retired and disabled Data Anesthesia Cardiac Studies: Echocardiogram 09/22/22 Sestamibi Stress Test (Cardiology) 08/25 Cardiac Event Monitor 10/12/22
[2024-03-08] MEDS: sodium chloride 0.9% 1,000 ML 30 ML IV (10:44)
[2024-03-08] MEDS: ceFAZolin 2,000 mg SDV 2000 MG IVP ×2 (10:50→17:55)
[2024-03-08] MEDS: lidocaine-epi 1% 20 mL INJ INJECTION (11:23)
[2024-03-08] MEDS: vancomycin 1,000 MG SDV 1000 MG XX (12:12)
[2024-03-08] MEDS: heparin, porcine 1,000 unit/mL INJ 10 mL 10000 UNIT IRRIGATION (12:13)
--- NOTE | 2024-03-08 13:37 | PM.OP ---
Operative Report Date of procedure: March 08, 2024 Pre-op diagnosis: L4-5 spondylolisthesis Lumbar stenosis with neurogenic claudication Post-op diagnosis: same Procedure done: 1. L4/5 Interbody fusion with posterolateral fusion 2. Instrumentation L4/5 3. Cage at L4/5 4. L4-5 laminectomy with facetectomies 5. use of autograft from same incision 6. allograft 7. Bone marrow aspirate from right iliac crest 8. Use of computer navigation stereotactic for the spine Surgeon: Munir Tipton DO Estimated blood loss (mL): 50 Procedure: 1. L4/5 Interbody fusion with posterolateral fusion 2. Instrumentation L4/5 3. Cage at L4/5 4. L4-5 laminectomy with facetectomies 5. use of autograft from same incision 6. allograft 7. Bone marrow aspirate from right iliac crest 8. Use of computer navigation stereotactic for the spine Patient is brought to the operative suite. After undergoing anesthesia, the patient had neuro monitoring attached. Patient was then placed in the prone position on the Jose table. All areas of impingement were well-padded. Patient was then prepped and draped in the normal sterile fashion. Skin incision was then made over the L 4/5 space. Subperiosteal dissection was made out to the transverse processes of L4 and L5 bilaterally. The Peg Bandwidth bone marrow aspirate kit was used to aspirate bone marrow aspirate drawn from the right iliac crest. This was done by using the sharp probe to open up the bone. Aspiration was performed and then the blunt probe was then used to dissect down to through the bone tunnel. An aspirating well drawn back a millimeter approximately 20 cc of bone marrow aspirate was used. Admixed with the allograft and autograft bone that will be used. Next 2 pins were placed in the right iliac crest and greater were used to attach the fusion to in order to do the computer navigation. This was done by placing 2 pins the patient was attached and serum was brought in spinal patient information from serum was loaded the computer and was later used to place the pedicle screws under computer navigation. The technique for placing the pedicle screws was to use a drill followed by the gearshift probe linked to computer navigation. Followed by the ball probe to feel the superior inferior medial lateral brown of the pedicles. Then placement of the screws linked to computer navigation. Was done at each pedicle. Screws were placed at L4 bilaterally and L5 bilaterally. Next attention was brought to performing the laminectomy ofL4. This was done using the high-speed bur Kerrisons and curettes. Once the lamina was removed and then attention was brought to performing a partial facetectomy on the contralateral side. This was done again using the high-speed bur curettes and Kerrisons. The ligamentum flavum was taken down bilaterally from L4 to L5. Attention was then brought to the facet on the ipsilateral side. The facet was taken down. The L5 nerve was decompressed as it passed around the L5 pedicle. The laminectomy was done for purposes of decompressing the nerve as well as placement of the cage. The L4 nerve was identified as it traversed through the L4/5 foramen. The thecal sac was identified and retracted. The L4/5 disc base was identified. Using a knife the disc base was opened. And then sequential alo were placed. The first shaver was a 6 and the last shaver was a 7. Using a pituitary and down going curette the endplates were scraped and disc material was removed from the space. Once adequate decompression of the disc base was felt to be had. Osteoamp sponge was packed into the anterior aspect of the disc base. Then a size 8 cage from [employer] was placed after packing osteoamp into the cage. While placing the cage the thecal sac and L5 nerve was protected. C arm was used to ensure that the cages placed in the appropriate position. Attention was then brought to attaching the rods to the screws placed in the L4 bilaterally and L5 bilaterally. Caps were torqued into position. Locking the construct in place. Wound was copiously irrigated and then attention was brought to decorticating the facets and transverse processes laterally. Bone that was taken down from the lamina was used along with osteoamp fibers and sponges were packed into the lateral gutters along the facet joints. This was done bilaterally. Wound was then closed in a layered fashion starting with the thoracolumbar fascia. 0-vicryl was used the sub cutaneous tissue was closed with 2-0 vicryl and skin with 4-0 monocryl. Glue was then used to seal the skin and a steril dressing was applied. Patient was then placed in the supine position. The endotracheal tube was removed and patient was transferred to the PACU in stable condition.
[2024-03-08] MEDS: HYDROmorphone 1 mg/mL INJ 1 mL IVP (13:40)
--- NOTE | 2024-03-08 13:40 | XR_ITS ---
WS: [id number] INTRAOPERATIVE TECHNIQUE: 3 Spot fluoroscopic images for intraoperative purposes. FLUOROSCOPY TIME: 11 seconds CLINICAL INFORMATION: or pic, fusion COMPARISON: None. FINDINGS: Intraoperative imaging with pedicle screw fixation L4-5 with interbody fusion graft L4-5. XR/XR lumbar spine 2-3V* [id number] IMPRESSION: Images obtained for intraoperative purposes.
[2024-03-08 13:54] LABS: Glucose Point of Care 168 mg/dL (70-110)
[2024-03-08] MEDS: HYDROmorphone 1 mg/mL INJ 1 mL 0.5 MG IVP (13:55)
[2024-03-08] MEDS: ketorolac 30 mg/mL INJ 15 MG IVP (14:12)
--- NOTE | 2024-03-08 14:25 | ANE.PACU2 ---
Inpatient post-anesthesia follow up: Airway intact: Yes Vital signs: Temperature 98.4 F Pulse Rate 96 Respiratory Rate 18 Blood Pressure 116/75 Pulse Oximetry 94 Oxygen Delivery Me thod Room Air Oxygen Flow Rate 8 Fraction of Inspir ed Oxygen Hydration adequate: Yes Nausea and vomiting: No Pain level: 1 Mental status: Baseline
[2024-03-08] MEDS: lactated ringers 1,000 ML 90 ML IV (14:57)
[2024-03-08] MEDS: morphine 4 mg/mL SDV 1 mL 2 MG IVP ×3 (14:57→19:18)
[2024-03-08] MEDS: methocarbamol 500 mg Tablet PO ×2 (14:58→20:57)
[2024-03-08] MEDS: HYDROcodone-acetaminophen 5-325 mg Tablet PO ×2 (17:54→22:15)
[2024-03-08] MEDS: docusate sodium 100 mg Capsule PO (17:55)
[2024-03-08] MEDS: losartan 50 mg Tablet PO (17:55)
[2024-03-08] MEDS: prazosin 5 mg Capsule PO (17:55)
--- NOTE | 2024-03-08 19:12 | PC.NURSE ---
pt c/o pain refused toradol stated it doesn't help her, requested morphine instead
[2024-03-08 20:37] LABS: Glucose Point of Care 142 mg/dL (70-110)
--- NOTE | 2024-03-08 21:01 | PC.NURSE ---
pt c/o itching and stated she does this when she gets morphine, call placed to Dr. Tipton for possible benadryl, message left on voicemail waiting on return call
[2024-03-09] VITALS: BP 123/79; PULSE 95; RESP 18; TEMP 36.6; O2SAT 95
[2024-03-09] MEDS: ketorolac 30 mg/mL INJ IVP ×2 (00:15→08:00)
[2024-03-09] MEDS: lactated ringers 1,000 ML 90 ML IV (01:02)
[2024-03-09] MEDS: HYDROcodone-acetaminophen 5-325 mg Tablet PO ×3 (02:08→12:17)
[2024-03-09] MEDS: ceFAZolin 2,000 mg SDV 2000 MG IVP ×2 (02:08→10:34)
[2024-03-09 04:41] VITALS: BP 99/64; PULSE 90; RESP 19; TEMP 37; O2SAT 97
[2024-03-09 07:53] VITALS: BP 99/64; PULSE 93; RESP 20; TEMP 37; O2SAT 95
[2024-03-09] MEDS: docusate sodium 100 mg Capsule PO (08:02)
[2024-03-09] MEDS: prazosin 5 mg Capsule PO (08:02)
[2024-03-09] MEDS: pantoprazole DR 40 mg Tablet PO (08:02)
[2024-03-09] MEDS: methocarbamol 500 mg Tablet PO (08:02)
[2024-03-09] MEDS: amlodipine 5 mg Tablet PO (08:02)
[2024-03-09 08:03] VITALS: BP 99/64
[2024-03-09] MEDS: metformin 500 mg Tablet PO (08:03)
[2024-03-09] MEDS: atorvastatin 40 mg Tablet PO (08:03)
[2024-03-09] MEDS: losartan 50 mg Tablet PO (08:03)
[2024-03-09] MEDS: hydroCHLOROthiazide 25 mg Tablet PO (08:03)
--- NOTE | 2024-03-09 08:15 | PM.DCS ---
Discharge Providers Date of Admission: 03/08/24 13:30 Date of Discharge: March 09, 2024 Attending Provider at Admission: Munir Tipton DO Attending Provider at Discharge: Munir Tipton DO Primary Care Provider: Dolores Roe DO Reason for Visit Reason for Visit: M48.062 Physical Exam Narrative: Patient was up ambulating last night did well. Leg pain is improved. She is having some back pain this morning. Will plan discharge home today at some point. Will get her up with physical therapy today. Urinary Catheter Management: Archibald Latex: Cath Placed During This Visit: yes Reason for Continuing Indwelling Catheter: Perioperative Use in Selected Surgeries Urinary Catheter Date of Insertion: 03/08/24 Urinary Catheter Time of Insertion: 11:17 Discharge Data Studies Completed and Pending Pending at discharge Category Date Time Status C-arm Fluoroscopy [id number] Routine Exams 03/08/24 09:56 Taken XR lumbar spine 2-3V* [id number] Routine Exams 03/08/24 13:40 Taken Laboratory Results POC Glucose 168 mg/dL (70-110) H 03/08/24 13:51 Blood Type A Positive 03/08/24 10:20 Rho(D) Type Rh positive 03/08/24 10:20 Antibody Screen Negative 03/08/24 10:20 Vitals Last Vital Signs Temp 98.6 F 03/09/24 07:53 Pulse 93 03/09/24 07:53 Resp 20 H 03/09/24 07:53 BP 99/64 03/09/24 08:03 Pulse Ox 95 03/09/24 07:53 O2 Del Method Nasal Cannula 03/09/24 07:53 O2 Flow Rate 2 03/09/24 07:53 Discharge Plan Discharge Patient Disposition: Home Condition: Stable Prescriptions: New hydrocodone-acetaminophen 5-325 mg tablet 1 - 2 tab PO .Q4-6H Qty: 40 0RF Continued metformin 500 mg tablet 500 mg PO DAILY amlodipine 5 mg tablet 5 mg PO DAILY hydrochlorothiazide 25 mg tablet 25 mg PO DAILY omeprazole 20 mg capsule,delayed release(DR/EC) 20 mg PO DAILY acetaminophen 325 mg tablet 325 mg PO QID PRN (Reason: Pain (Scale Score 1-3)) mirtazapine 45 mg tablet,disintegrating 45 mg translingual .qhs prazosin 5 mg capsule 5 mg PO BID methocarbamol 500 mg tablet See Rx Instructions .ROUTE .COMPLEX Qty: 60 0RF Dose Instruction: TAKE ONE TABLET BY MOUTH THREE TIMES A DAY Rx Instructions: TAKE ONE TABLET BY MOUTH THREE TIMES A DAY losartan 50 mg tablet 50 mg PO BID atorvastatin 40 mg tablet 40 mg PO DAILY sumatriptan succinate 50 mg tablet 50 mg PO PRN Discharge Orders: Discharge Order (Routine); Ordered 03/09/24 Ordered By: Munir Tipton Other Ambulatory Orders: DME: Walker (Order) Location: None Selected Ordered By: Munir Tipton Discharge Diet: Advance as tolerated Discharge Activity: Limit activity as instructed Patient Instructions: Acute Wound Care (DC), Opioid Safety, Post Anesthesia Care Activity Restrictions/Additional Instructions: Thank you for [facility] for your care! The following is a list of instructions, from your provider, to follow upon your discharge to ensure you have the optimal recovery from your recent injury orsurgery. Follow-up care is a hawthorne part of your treatment and safety. Be sure to make and go to all appointments, and call your doctor if you are having problems. If you do not already have a follow-up appointment made, call Dr. Tipton office in the next 1-3 days to make follow up appointment for 1 weeks at [phone]. It is also a good idea to know your test results and keep a list of the medicines you take. Medications will be prescribed for you at your provider's discretion. These medications are to be used as instructed; if they are taken more often that prescribed they will not be refilled early and in most cases will not be refilled at all. > When a refill is needed,you should contact stephanie castanon 2-3 business days before your prescription runs out. Medications will NOT be refilled by recreational programs director providers after hours! > Many pain medications contain Tylenol (Acetaminophen). Do not consume more than 4,000 mg of Tylenol per day in total with any combination ofmedications. > Pain medications can cause constipation. Please use an over the counter stool softener as directed, while taking pain medications. Consulty our local pharmacist with questions or recommendations on stool softeners. If constipation persists, contact our office or your primary care provider. > While under our care,you are not to receive pain medications or other controlled substances from any other provider unless our office is notified and approves. Any attempts to do so will result in refusal to prescribe any further pain medications and possible dismissal from our practice. ? Will change dressing clinic in 1 week. starting would include; An increase in redness, swelling, or discharge, a foul odor present around the incision, and/or a fever greater than 101 ?F ? Showering is permitted, however we ask that you do not take a bath, sit in a whirlpool / Jacuzzi, or go swimming for 1 month. For only the first 2 days after surgery, lt wilt be necessary for you to cover your wound/dressing with plastic and tape to keep it dry. ? Walking is essential for the healing process after surgery. We would like you to slowly advance your walking. This should be done on relatively flat clear ground (inside or out) or can be done on a treadmill. Remember this goal does not have to happen all at once, slowly increase your distance and duration. This can be broken into more more than one walk per day as tolerated. Patients who walk as directed after surgery rarely require Physical Therapy. In the unlikely event this issue arises your provider will direct hospital staff to make the appropriate arrangements. ? No lifting over 5 pounds {a gallon of milk) or bending/twisting until further notice. Each of these activities places an unnecessary amount of stress onto the body and can impede the delicate healing process. > Instead of bending at the waist, keep your back straight and bend at the knees. > Instead of twisting your torso, keep your back straight and turn your entire body with your feet. ? You may sleep in any position which makes you comfortable. Many patients find comfort sleeping in a reclining chair. It is not abnormal to have difficulty sleeping for the first several weeks following your surgery. We recommend trying Benadry! or Tylenol PM as directed to help with your sleeping difficulties. Both medications are over the counter and available withoutprescription. ? NO SMOKING!!! Smoking dramatically increases the probability of developing postoperative wound infections. ? Common complaints after lumbar and/or thoracic spine surgery include, but are not limited to: numbness and/or tingling in the legs, pain around the incision and surrounding tissues, muscle spasms, or stiffness of the middle to low back. Contact our office if these symptoms persist or if an acute change occurs. ? No driving for the first 3-5days, and not while taking narcotics until seen at your follow-up appointment and cleared. There are no restrictions for riding on short trips, however if you take a longer trip, arrangements should be made to make regular stops to get out of the vehicle and stretch . ? Swelling is an unfortunate event that will take place with any surgery and is the primary source of your postoperative discomfort. While walking and regular approved activities helps control inflammation, there are additional steps you can take to minimizeswelling. > Place ice over the surgical site and surrounding tissue for twenty minutes, followed by applying a low/medium heat (heating pad) for an additional twenty minutes every 1-2 hours as needed for painrelief. > You may use of over the counter anti-inflammatory medications (Ibuprofen, Motrin, Aleve, Advil, etc) as directed on the package label. These types of medicines wm significantly reduce the amount of discomfort you experience after surgery from swelling. It should be noted that if you have and allergy to any of these medications, or a history of ulcers or kidney disease you should consult you primary care provider prior to starting these medications. Discharge Attestations Time Spent in Discharge Care*: less than 30 min Quality Metrics Clinical Quality Measures [ No reported AMI, CVA or VTE this stay] Coding Level of Care Code Acute Code for Chg Fwd
--- NOTE | 2024-03-09 11:13 | PC.NURSE ---
Covaderm 4x4 bandage used to cover wound site from hemovac removal prior to pt discharge
[2024-03-09 12:00] VITALS: BP 116/70; PULSE 99; RESP 20; TEMP 36.6; O2SAT 97
[2024-03-09 12:59] VITALS: BP 116/70; PULSE 99; RESP 20; TEMP 36.6; O2SAT 97
== END 2024-03-09 12:56 | disposition home or self-care (01) ==
LOC: MEDSURG 13:18
PROVIDERS: Admitting Provider Orthopaedic Surgery; PCP Family Medicine; Visit Provider Orthopaedic Surgery
PROC: (CPT 20930; principal; 2024-03-08 11:30)
PROC: (CPT 22612; 2024-03-08 11:30)
DX: M48.062 Spinal stenosis, lumbar region with neurogenic claudication (principal); Z87.891 Personal history of nicotine dependence; Z79.84 Long term (current) use of oral hypoglycemic drugs; M79.7 Fibromyalgia; E11.9 Type 2 diabetes mellitus without complications; I10 Essential (primary) hypertension
CPT/HCPCS: 20930; 20936; 20939; 22633; 22842; 22853; 61783; 63052; 36415; 36416; 51702; 72100; 76000; 82962; 86850; 86900; 97116; 97161; 97530; C1713; G0378; J0131; J0690; J1100; J1170; J1644; J1885; J2270; J2405; J2704; J3010; J3370; J3490; J7030; J7120

== ENCOUNTER → 2024-03-16 14:21 | Outpatient (BNVA) | payer OTHER, MEDICAID, SELFPAY | PROVIDERS: PCP Family Medicine; Visit Provider Orthopaedic Surgery | DX: M48.062 Spinal stenosis, lumbar region with neurogenic claudication (principal); Z98.890 Other specified postprocedural states | CPT/HCPCS: 99024 ==

== ENCOUNTER → 2024-03-23 14:30 | Outpatient (BNVA) | payer OTHER, MEDICAID, SELFPAY | PROVIDERS: PCP Family Medicine; Visit Provider Orthopaedic Surgery | DX: Z48.89 Encounter for other specified surgical aftercare (principal) | CPT/HCPCS: 99024 ==

== ENCOUNTER → 2024-04-20 10:35 | Outpatient (BNVA) | payer OTHER, MEDICAID, SELFPAY | PROVIDERS: PCP Family Medicine; Visit Provider Orthopaedic Surgery | DX: M48.062 Spinal stenosis, lumbar region with neurogenic claudication (principal) | CPT/HCPCS: 72100; 99024 ==

== ENCOUNTER → 2024-05-18 12:55 | Outpatient (BNVA) | payer OTHER, MEDICAID, SELFPAY | PROVIDERS: PCP Family Medicine; Visit Provider Podiatrist Foot & Ankle Surgery | DX: L60.3 Nail dystrophy (principal); I73.9 Peripheral vascular disease, unspecified; G62.9 Polyneuropathy, unspecified; E11.42 Type 2 diabetes mellitus with diabetic polyneuropathy; Z79.84 Long term (current) use of oral hypoglycemic drugs | CPT/HCPCS: 11721; 99203 ==

== ENCOUNTER → 2024-06-01 13:07 | Outpatient (BNVA) | payer OTHER, MEDICAID, SELFPAY | PROVIDERS: PCP Family Medicine; Visit Provider Orthopaedic Surgery | DX: Z98.1 Arthrodesis status (principal) | CPT/HCPCS: 72100; 99024 ==

== ENCOUNTER 2024-06-08 01:21 | Emergency (ER) | payer MEDICARE, MEDICAID, SELFPAY ==
[2024-06-08] VITALS (28 sets, daily range): BP systolic 94–127; BP diastolic 55–77; PULSE 94–126; RESP 13–28; TEMP 36.6; O2SAT 95–100; BMI 24.9
--- NOTE | 2024-06-08 01:27 | XRR_ITS ---
PROCEDURE INFORMATION: Exam: XR Right Wrist Exam date and time: 06/08/2024 1:56 AM Age: 63 years old Clinical indication: Injury or trauma; Fall; Blunt trauma (contusions or hematomas); Wrist; Right; Additional info: Fall, wrist pain TECHNIQUE: Imaging protocol: Radiologic exam of the right wrist. Views: 3 or more views. COMPARISON: No relevant prior studies available. FINDINGS: Bones/joints: Displaced distal radial metadiaphysis fracture. No dislocation. Soft tissues: Soft tissue edema noted at the wrist. XR/XR wrist RT min 3V* [id number] IMPRESSION: Displaced distal radial metadiaphysis fracture.
--- NOTE | 2024-06-08 01:27 | CTR_ITS ---
PROCEDURE INFORMATION: Exam: CT Head Without Contrast Exam date and time: 06/08/2024 1:47 AM Age: 63 years old Clinical indication: Injury or trauma; Fall; Blunt trauma (contusions or hematomas); Additional info: Fall, head injury TECHNIQUE: Imaging protocol: Computed tomography of the head without contrast. Radiation optimization: All CT scans at this facility use at least one of these dose optimization techniques: automated exposure control; mA and/or kV adjustment per patient size (includes targeted exams where dose is matched to clinical indication); or iterative reconstruction. COMPARISON: MR head wo/w con [id number] 10/15/2023 10:08 AM RADIATION DOSE METRICS: Total DLP (mGy-cm): 1187.98 FINDINGS: Brain: No hemorrhage. No edema, mass effect or midline shift. Cerebral ventricles: No ventriculomegaly. Paranasal sinuses: Visualized sinuses are unremarkable. No fluid levels. Mastoid air cells: No mastoid effusion. Bones: Unremarkable. No acute fracture. Soft tissues: Unremarkable. CT/CT head wo con* [id number] IMPRESSION: No acute intracranial abnormality.
--- NOTE | 2024-06-08 01:27 | XRR_ITS ---
PROCEDURE INFORMATION: Exam: XR Chest Exam date and time: 06/08/2024 1:55 AM Age: 63 years old Clinical indication: Other: Weakness TECHNIQUE: Imaging protocol: Radiologic exam of the chest. Views: 1 view. COMPARISON: CR XR chest 1V portable [id number] 09/22/2022 5:26 PM FINDINGS: Lungs: No consolidation. Pleural spaces: Unremarkable. No pleural effusion. No pneumothorax. Heart/Mediastinum: No cardiomegaly. Bones/joints: No acute fracture. Postsurgical hardware noted in the lower cervical XR/XR chest 1V portable [id number] IMPRESSION: No acute findings.
--- NOTE | 2024-06-08 01:30 | W.ED.FALL ---
HPI - Fall General: Chief Complaint: Fall Stated Complaint: fall Time Seen by Provider: 06/08/24 01:21 History of Present Illness: 63-year-old female with a history of hypertension, hyperlipidemia and diabetes who presents to the emergency room after having a syncopal episode. She fell and hit her head. She has a superficial laceration above her right eyebrow. She is complaining of right wrist pain. Says she smokes marijuana daily. She is also been having issues with dizziness and lightheadedness for several months now. She is been following with her primary care provider for this. She says she got up to go to the bathroom and got lightheaded and the next thing she knows she woke up on the floor. No known fevers. She has no chest pain at this time. No neck pain. No abdominal pain. No nausea or vomiting. Related Data Home Medications Medication Instructions Recorded Confirmed atorvastatin 40 mg tablet 40 mg PO DAILY 06/26/21 06/01/24 losartan 50 mg tablet 50 mg PO BID 06/26/21 06/01/24 sumatriptan succinate 50 mg tablet 50 mg PO PRN MIGRAINES 06/26/21 06/01/24 amlodipine 5 mg tablet 5 mg PO DAILY 07/29/22 06/01/24 hydrochlorothiazide 25 mg tablet 25 mg PO DAILY 07/29/22 06/01/24 omeprazole 20 mg capsule,delayed 20 mg PO DAILY 07/29/22 06/01/24 release acetaminophen 325 mg tablet 325 mg PO QID PRN Pain (Scale 11/09/22 06/01/24 Score 1-3) metformin 500 mg tablet 500 mg PO DAILY 02/18/24 06/01/24 mirtazapine 45 mg disintegrating 45 mg translingual .qhs 02/18/24 06/01/24 tablet prazosin 5 mg capsule 5 mg PO BID 02/18/24 06/01/24 Previous Rx's Medication Instructions Recorded methocarbamol 500 mg tablet See Rx Instructions .Route 02/25/24 .COMPLEX #60 tabs diabetic shoes with 3 inserts #1 ea 05/23/24 hydrocodone 5 mg-acetaminophen 325 1 - 2 tab PO .Q4-6H PRN pain 7 06/06/24 mg tablet days #40 tabs oxycodone 5 mg tablet 5 mg PO Q8H PRN pain #20 tabs 06/08/24 Allergies Allergy/AdvReac Type Severity Reaction Status Date / Time metoprolol AdvReac Severe heart block Verified 06/08/24 01:30 Review of Systems Narrative: Constitutional symptoms: Negative except as documented in HPI. Skin symptoms: Negative except as documented in HPI. Eye symptoms: Negative except as documented in HPI. ENMT symptoms: Negative except as documented in HPI. Respiratory symptoms: Negative except as documented in HPI. Cardiovascular symptoms: Negative except as documented in HPI. Gastrointestinal symptoms: Negative except as documented in HPI. Genitourinary symptoms: Negative except as documented in HPI. Musculoskeletal symptoms: Negative except as documented in HPI. Neurologic symptoms: Negative except as documented in HPI. Psychiatric symptoms: Negative except as documented in HPI. Endocrine symptoms: Negative except as documented in HPI. PFSH ED PFSH: Medical History Chronic back pain Fibromyalgia Family history of ischemic heart disease and other diseases of the circulatory system Hyperlipidemia Diabetes Irritable bowel syndrome with diarrhea HTN (hypertension) Family history of kidney cancer Bilateral renal cysts Surgical History History of hysterectomy History of rotator cuff surgery History of cholecystectomy History of back surgery History of knee replacement History of cervical spinal surgery Family History Father , AT 88 Heart attack Diabetes Mother , AT AGE 85 Heart attack Diabetes Sister Heart attack Social History Smoking and tobacco/nicotine status: never used tobacco/nicotine Alcohol intake: never Substance/Drug Use: never Marital status: Current occupational status: retired and disabled Physical Exam Narrative: EXAM NARRATIVE: General: Alert, no acute distress. Skin: Warm, dry. Head: Normocephalic, small superficial laceration just above the right eyebrow. Neck: Supple, trachea midline. Eye: Extraocular movements are intact. Ears, nose, mouth and throat: mucosa moist. Cardiovascular: Regular, Normal peripheral perfusion. Respiratory: Lungs are clear to auscultation, respirations are non-labored, breath sounds are equal, Symmetrical chest wall expansion. Gastrointestinal: Soft, Nontender, Non distended Musculoskeletal: Pain in the right radial wrist area. Neurological: Alert and oriented, No focal neurological deficit observed. Psychiatric: Cooperative, appropriate mood & affect. Course Vital Signs: Vital signs: Vital Signs Temperature 97.9 F 06/08/24 01:26 Pulse Rate 100 06/08/24 03:30 Respiratory Rate 16 06/08/24 03:30 Blood Pressure 119/55 06/08/24 03:30 Pulse Oximetry 96 06/08/24 03:30 Oxygen Delivery Me thod Room Air 06/08/24 03:30 MDM - Fall Medical Decision Making Medical decision making: Differential diagnosis including but not limited to and based on the above HPI, review of systems and physical exam in this patient with syncope: Vasovagal, orthostatics hypotension, cardiac dysrhythmia, myocardial infarction, infection and hypotension, Orders placed to evaluate differential diagnosis based on the above differential, HPI and physical exam EKG: Time 136. Rate 112. Sinus tachycardia, No ST-T changes, PVCs, normal WI & QRS intervals, This was reviewed and interpreted by myself the ER physician at 1:[address] head: No acute intracranial process. no intracranial hemorrhage, no evidence of infarct. no evidence of acute fracture.This was reviewed and interpreted by myself the ER physician. Chest x-ray: No acute process. No infiltrate. No pneumothorax. This was reviewed and interpreted by myself the emergency room physician. I also reviewed the radiology report. X-ray of the right wrist: Displaced distal radial fracture. This was reviewed and interpreted by myself the emergency room physician. I also reviewed the radiology report. Lab Review: Laboratory results were reviewed and interpreted by myself the emergency room physician. Patient does have some leukocytosis with a white count of 16,000. Stable anemia with a hemoglobin of 10.5. BUN and creatinine are 19 and 1. No urinary tract infection. Her lactate was slightly elevated. Troponin was 13 and 18 respectively serially with no significant delta. No chest pain. I reviewed the patient's medical record. Reexamination: Splint was placed by nursing I have examined. She is neurovascularly intact. Heart rate has come down. This is with pain control most likely. I discussed observation admission with her having had the syncope. She is having workup for her lightheadedness and stomach issues with her primary and going to see a early childhood special educator. She declines admission at this time. She will return if symptoms worsen. Again she has had no chest pain. No shortness of breath at baseline. She says she just has the nausea and vomiting issues. She has had some weight loss recently. She does have a superficial laceration above the right eyebrow. Steri-Strips were placed on this. Assessment and plan: Wrist fracture Eyebrow laceration Syncope ?IV Dilaudid x 2 doses here. Sending 3 oxycodone home with her. She is on hydrocodone at home. We discussed only taking the oxycodone I am sending with her in the prescription and not doubling this up with the hydrocodone she already takes. - Discharged home - Discussed findings and plan with patient. Answered any questions. - All laboratory values were reviewed and interpreted personally by myself, the ER physician - All imaging was reviewed and interpreted personally by myself, the ER physician. - Evaluation and treatment of this problem were appropriate in the emergency setting Lab Data 06/08/24 02:09 06/08/24 02:09 Radiology Impressions Chest X-Ray 06/08/24 01:27 IMPRESSION: No acute findings. Head CT 06/08/24 01:27 IMPRESSION: No acute intracranial abnormality. Wrist X-Ray 06/08/24 01:27 IMPRESSION: Displaced distal radial metadiaphysis fracture. Laboratory Results WBC 16.50 10^3/uL (3.29-11.43) H 06/08/24 02:09 RBC 4.02 10^6/uL (3.85-5.65) 06/08/24 02:09 Hgb 10.50 g/dL (11.27-16.99) L 06/08/24 02:09 Hct 33.1 % (36-47) L 06/08/24 02:09 MCV 82.3 fl (85-98) L 06/08/24 02:09 MCH 26.1 pg (27-33) L 06/08/24 02:09 MCHC 31.7 g/dL (30-55) 06/08/24 02:09 RDW 13.8 % (12.1-15.1) 06/08/24 02:09 Plt Count 445 10^3/cmm (157-399) H 06/08/24 02:09 MPV 8.6 fL (7.4-10.4) 06/08/24 02:09 Neut % (Auto) 80.1 % 06/08/24 02:09 Lymph % (Auto) 12.4 % 06/08/24 02:09 [place] % (Auto) 4.7 % 06/08/24 02:09 Eos % (Auto) 1.4 % 06/08/24 02:09 Baso % (Auto) 0.4 % 06/08/24 02:09 Neut # (Auto) 13.23 10^3/uL (1.8-7.7) H 06/08/24 02:09 Lymph # (Auto) 2.0 10^3/uL (0.8-4.8) 06/08/24 02:09 [place] # (Auto) 0.8 10^3/uL (0.2-0.9) 06/08/24 02:09 Eos # (Auto) 0.2 10^3/uL (0.0-0.8) 06/08/24 02:09 Baso # (Auto) 0.1 10^3/uL (0.0-0.1) 06/08/24 02:09 Nucleated RBC % (auto) 0 % 06/08/24 02:09 Nucleated RBCs # 0.0 /100WBC 06/08/24 02:09 Sodium 132 mmol/L (136-145) L 06/08/24 02:09 Potassium 3.4 mmol/L (3.5-5.1) L 06/08/24 02:09 Chloride 95 mmol/L (98-107) L 06/08/24 02:09 Carbon Dioxide 20 mmol/L (22-29) L 06/08/24 02:09 Anion Gap 20.4 (5-19) H 06/08/24 02:09 BUN 19 mg/dL (8-23) 06/08/24 02:09 Creatinine 1.0 mg/dL (0.5-0.9) H 06/08/24 02:09 GFR Calculation 55.8 mL/min (90-130) L 06/08/24 02:09 Glucose 153 mg/dL (65-115) H 06/08/24 02:09 Calculated Osmolality 279 mOsm/kg (285-295) L 06/08/24 02:09 Lactic Acid 2.6 mmol/L (0.5-2.2) H 06/08/24 02:09 Calcium 8.9 mg/dL (8.5-10.5) 06/08/24 02:09 Total Bilirubin 0.2 mg/dL (0.15-1.2) 06/08/24 02:09 AST 21 U/L (0-32) 06/08/24 02:09 ALT 14 U/L (0-33) 06/08/24 02:09 Alkaline Phosphatase 147 U/L (35-105) H 06/08/24 02:09 Troponin T Baseline 13 ng/L (0-10) H 06/08/24 02:09 Troponin T 120 Minute 18.97 ng/L (0-10) H 06/08/24 03:21 Delta Troponin T 5.97 ABS# (0-10) 06/08/24 03:21 Total Protein 7.6 g/dL (6.6-8.7) 06/08/24 02:09 Albumin 4.5 g/dL (3.5-5.2) 06/08/24 02:09 Globulin 3.1 g/dL (1.3-4.6) 06/08/24 02:09 Urine Color Yellow (Yellow) 06/08/24 02:35 Urine Appearance Clear (CLEAR) 06/08/24 02:35 Urine pH 5.0 (5-7) 06/08/24 02:35 Ur Specific [place] 1.025 (1.005-1.030) 06/08/24 02:35 Urine Protein Trace (Negative) A 06/08/24 02:35 Urine Glucose (UA) Negative (Normal) 06/08/24 02:35 Urine Ketones Trace (Negative) 06/08/24 02:35 Urine Blood Negative (Negative) 06/08/24 02:35 Urine Nitrate Negative (Negative) 06/08/24 02:35 Urine Bilirubin Negative (Negative) 06/08/24 02:35 Urine Urobilinogen 1.0 mg/dL (Negative) 06/08/24 02:35 Ur Leukocyte Esterase Negative (Negative) 06/08/24 02:35 Urine RBC 0-2 /hpf (0-2) 06/08/24 02:35 Urine WBC 0-5 /hpf (0-5) 06/08/24 02:35 Ur Squamous Epith Cells 6-10 /hpf (0-5) 06/08/24 02:35 Amorphous Sediment Not Reportable 06/08/24 02:35 Urine Bacteria None seen /hpf (NONE) 06/08/24 02:35 Hyaline Casts 43.84 /lpf 06/08/24 02:35 Urine Opiates Screen Positive ng/mL (Negative) H 06/08/24 02:35 Ur Barbiturates Screen Negative ng/mL (Negative) 06/08/24 02:35 Ur Phencyclidine Scrn Negative ng/mL (Negative) 06/08/24 02:35 Ur Amphetamines Screen Negative ng/mL (Negative) 06/08/24 02:35 U Benzodiazepines Scrn Negative ng/mL (Negative) 06/08/24 02:35 Urine Cocaine Screen Negative ng/mL (Negative) 06/08/24 02:35 U Marijuana (THC) Screen Positive ng/mL (Negative) H 06/08/24 02:35 Ethyl Alcohol < 10 mg/dL (0-10) 06/08/24 02:09 All radiology interpretation(s) finalized by discharge Discharge Plan Discharge Patient Disposition: Home Clinical Impression: Wrist fracture, Syncope Condition: Stable Prescriptions: New oxycodone 5 mg tablet 5 mg PO Q8H PRN (Reason: pain) Qty: 20 0RF No Action metformin 500 mg tablet 500 mg PO DAILY amlodipine 5 mg tablet 5 mg PO DAILY hydrochlorothiazide 25 mg tablet 25 mg PO DAILY omeprazole 20 mg capsule,delayed release(DR/EC) 20 mg PO DAILY acetaminophen 325 mg tablet 325 mg PO QID PRN (Reason: Pain (Scale Score 1-3)) mirtazapine 45 mg tablet,disintegrating 45 mg translingual .qhs prazosin 5 mg capsule 5 mg PO BID methocarbamol 500 mg tablet See Rx Instructions .ROUTE .COMPLEX Qty: 60 0RF Dose Instruction: TAKE ONE TABLET BY MOUTH THREE TIMES A DAY Rx Instructions: TAKE ONE TABLET BY MOUTH THREE TIMES A DAY (DME) diabetic shoes with 3 inserts See Rx Instructions .Route .MEDSUPPLY Qty: 1 0RF Rx Instructions: As directed to the shoe gukristine hydrocodone-acetaminophen 5-325 mg tablet 1 - 2 tab PO .Q4-6H PRN (Reason: pain) 7 Days Qty: 40 0RF losartan 50 mg tablet 50 mg PO BID atorvastatin 40 mg tablet 40 mg PO DAILY sumatriptan succinate 50 mg tablet 50 mg PO PRN Discharge Orders: Discharge ED (Routine); Ordered 06/08/24 Ordered By: Orquidea Justin Referrals: Munir Tipton DO [Physician] - 4-7 days (Please call for a follow-up appointment) Dolores Roe DO [Referring] - Discharge Diet: Usual diet Discharge Activity: Increase activity as tolerated Patient Instructions: Wrist Fracture in Adults (ED), Syncope (ED), Splint Care (ED), Opioid Safety, Pain Management Activity Restrictions/Additional Instructions: Thank you for choosing [facility] for your healthcare needs today. Please realize this is an emergency room and that we are providing you with a medical screening exam and this may not be complete and all inclusive of all the testing and or work up that you may need to determine your ailment or severity of your illness. You have been screened and evaluated and felt safe for discharge. Health conditions do change or evolve sometimes and as such it is important that you follow up with your Primary Doctor to be re checked, 3-5 days is a general good time frame for follow up. You are always welcome to return to the ED for re assessment if your symptoms are worsening or you have new concerns Coding Level of Care Code ED Linoleum Mechanic for Zac Zaragoza
[2024-06-08] MEDS: HYDROmorphone 1 mg/mL INJ 1 mL IVP ×2 (01:35→02:52)
--- NOTE | 2024-06-08 01:36 | ECG_ITS ---
[facility] Test Date: 2024-06-08 Pat Name: Selina Henning Department: Room: Gender: Female Edger Automatic: : 1960 Requested By: Orquidea Gallo Order Number: [id number] De Jesus MD: Dyan Espinosa M.D. Measurements Intervals [place] Rate: 112 P: 70 ND: 160 QRS: 30 QRSD: 82 T: 77 QT: 352 QTc: 481 Interpretive Statements SINUS TACHYCARDIA WITH FREQUENT SUPRAVENTRICULAR PREMATURE COMPLEXES POSSIBLE RIGHT VENTRICULAR CONDUCTION DELAY [RSR (QR) IN V1/V2] NONSPECIFIC T-WAVE ABNORMALITY ABNORMAL RHYTHM ECG Compared to ECG 02/18/2024 11:21:34 T-wave abnormality now present Sinus rhythm no longer present Electronically Signed On 06-08-2024 13:50:49 SORTER LUMBER STRAIGHTENER by Dyan Espinosa M.D. [id number]
[2024-06-08 02:19] LABS: Basophils # 0.1 10^3/uL (0.0-0.1); Basophils % 0.4 %; Eosinophils # 0.2 10^3/uL (0.0-0.8); Eosinophils % 1.4 %; Hematocrit 33.1 % (36-47); Lymphocytes % 12.4 %; Mean Corpuscular HGB Conc 31.7 g/dL (30-55); Mean Corpuscular Hemoglobin 26.1 pg (27-33); Mean Corpuscular Volume 82.3 fl (85-98); Mean Platelet Volume 8.6 fL (7.4-10.4); Monocytes # 0.8 10^3/uL (0.2-0.9); Monocytes % 4.7 %; Neutrophils # 13.23 10^3/uL (1.8-7.7); Neutrophils % 80.1 %; Nucleated Red Blood Cells % 0 %; Platelet Count 445 10^3/cmm (157-399); Red Blood Count 4.02 10^6/uL (3.85-5.65); Red Cell Distribution Width 13.8 % (12.1-15.1)
[2024-06-08 02:35] LABS: Troponin(5th) Baseline 13 ng/L (0-10)
[2024-06-08 02:37] LABS: Alanine Aminotransferase 14 U/L (0-33); Albumin Level 4.5 g/dL (3.5-5.2); Alkaline Phosphatase 147 U/L (35-105); Anion Gap 20.4 (5-19); Aspartate Amino Transferase 21 U/L (0-32); Blood Urea Nitrogen 19 mg/dL (8-23); Calcium 8.9 mg/dL (8.5-10.5); Carbon Dioxide 20 mmol/L (22-29); Chloride 95 mmol/L (98-107); Creatinine Clr Calc Pharmacy 53.0513; Globulin 3.1 g/dL (1.3-4.6); Glomerular Filtration Rate 55.8 mL/min (90-130); Glucose 153 mg/dL (65-115); Lactic Sepsis W/Reflex 2.6 mmol/L (0.5-2.2); Osmolality Calculated 279 mOsm/kg (285-295); Potassium 3.4 mmol/L (3.5-5.1); Sodium 132 mmol/L (136-145); Total Bilirubin 0.2 mg/dL (0.15-1.2); Total Protein 7.6 g/dL (6.6-8.7)
[2024-06-08 02:39] LABS: Alcohol Level < 10 mg/dL (0-10)
[2024-06-08 02:44] LABS: Bilirubin Urine Negative (Negative); Blood Urine Negative (Negative); Glucose Urine UA Negative (Normal); Ketones Urine Trace (Negative); Leukocyte Esterase Urine Negative (Negative); Nitrate Urine Negative (Negative); Protein Urine Trace (Negative); Specific Gravity, Urine 1.025 (1.005-1.030); Urine Appearance Clear (CLEAR); Urine Color Yellow (Yellow)
[2024-06-08 02:49] LABS: Bacteria Urine None Seen /hpf; Hyaline Casts Urine 43.84 /lpf; RBC Urine 0-2 /hpf (0-2); WBC Urine 0-5 /hpf (0-5)
[2024-06-08 02:51] LABS: Amphetamines Screen Urine Negative (Negative); Barbiturates Screen Urine Negative (Negative); Benzodiazepines Screen Urine Negative (Negative); Cocaine Screen Urine Negative (Negative); Opiate Screen Urine Positive (Negative); PCP Screen Urine Negative (Negative); THC Screen Urine Positive (Negative)
[2024-06-08 03:05] LABS: UA Slide Review UA Slide Review Perf
[2024-06-08 03:44] LABS: Troponin 5 2HR 18.97 ng/L (0-10); Troponin 5 2HR Delta 5.97 ABS# (0-10)
[2024-06-08 04:04] LABS: Reflex Lactate Order REFLEX LACTIC ORDERD
== END 2024-06-08 05:17 | disposition home or self-care (01) ==
PROVIDERS: Emergency Provider Emergency Medicine; PCP Family Medicine
DX: S52.501A Unspecified fracture of the lower end of right radius, initial encounter for closed fracture (principal); W19.XXXA Unspecified fall, initial encounter; R55 Syncope and collapse; Z79.84 Long term (current) use of oral hypoglycemic drugs; E78.5 Hyperlipidemia, unspecified; E11.9 Type 2 diabetes mellitus without complications; I10 Essential (primary) hypertension
CPT/HCPCS: 29125; 36415; 70450; 71045; 73110; 80053; 80306; 80307; 81001; 83605; 84484; 85025; 87040; 93005; 96374; 96376; 99285; J1171

== ENCOUNTER → 2024-06-15 09:01 | Outpatient (BNVA) | payer MEDICARE, MEDICAID, SELFPAY | PROVIDERS: PCP Family Medicine; Visit Provider Orthopaedic Surgery | DX: S62.109A Fracture of unspecified carpal bone, unspecified wrist, initial encounter for closed fracture (principal); W19.XXXA Unspecified fall, initial encounter | CPT/HCPCS: 73110; 99203 ==

== ENCOUNTER 2024-06-15 09:59 | Outpatient (CLI) | payer MEDICARE, MEDICAID, SELFPAY | END 2024-06-15 10:00 | disposition home or self-care (01) | LOC: SPT 10:00 | PROVIDERS: PCP Family Medicine; Visit Provider Orthopaedic Surgery | DX: Z46.89 Encounter for fitting and adjustment of other specified devices (principal); S52.591D Other fractures of lower end of right radius, subsequent encounter for closed fracture with routine healing; X58.XXXD Exposure to other specified factors, subsequent encounter | CPT/HCPCS: 97760; L3982 ==

== ENCOUNTER → 2024-07-18 15:18 | Outpatient (BNVA) | payer MEDICARE, MEDICAID, SELFPAY | PROVIDERS: PCP Family Medicine; Visit Provider Orthopaedic Surgery | DX: Z09 Encounter for follow-up examination after completed treatment for conditions other than malignant neoplasm (principal) | CPT/HCPCS: 73110; 99213 ==

== ENCOUNTER → 2024-07-27 13:07 | Outpatient (BNVA) | payer MEDICARE, MEDICAID, SELFPAY | PROVIDERS: PCP Family Medicine; Visit Provider Podiatrist Foot & Ankle Surgery | DX: L60.3 Nail dystrophy (principal); I73.9 Peripheral vascular disease, unspecified; G62.9 Polyneuropathy, unspecified; E11.42 Type 2 diabetes mellitus with diabetic polyneuropathy; Z79.84 Long term (current) use of oral hypoglycemic drugs | CPT/HCPCS: 11721 ==

== ENCOUNTER → 2024-08-31 12:52 | Outpatient (BNVA) | payer MEDICARE, MEDICAID, SELFPAY | PROVIDERS: PCP Family Medicine; Visit Provider Orthopaedic Surgery | DX: Z98.1 Arthrodesis status (principal) | CPT/HCPCS: 72100; 73110; 99213 ==

== ENCOUNTER → 2024-09-20 10:54 | Outpatient (BNVA) | payer MEDICARE, MEDICAID, SELFPAY | PROVIDERS: PCP Family Medicine; Visit Provider Nurse Practitioner | DX: M25.562 Pain in left knee (principal); Z96.652 Presence of left artificial knee joint | CPT/HCPCS: 73560; 73565; 99214 ==

== ENCOUNTER 2024-10-05 08:06 | Outpatient (CLI) | payer MEDICARE, MEDICAID, SELFPAY ==
--- NOTE | 2024-10-05 08:45 | NMR_ITS ---
PROCEDURE INFORMATION: Exam: NM Bone and/or Joint, 3 Phase Exam date and time: 10/05/2024 8:45 AM Age: 63 years old Clinical indication: Bone pain; Prior surgery; Surgery date: 6+ months; Surgery type: Back surgery, cervical spinal surgery, knee replacement, rotator cuff surgery, --pain in left knee x 4 months , broke right wrist May 2024; Additional info: Left knee pain TECHNIQUE: Imaging protocol: Nuclear 3 phase bone scan was obtained. Views: Frontal and posterior Radiopharmaceutical: 26.6 mCi Tc-99m HDP (Oxidronate), IV. 26.6 mCi Tc-99m HDP (Oxidronate), IV. Time of imaging post radiopharmaceutical administration: 2 hours COMPARISON: No relevant prior studies available. FINDINGS: Skeleton: There is evidence of a left knee prosthesis. No areas of abnormal radiotracer uptake noted. Blood flow and blood pool images are normal. Soft tissues: Unremarkable. NM/NM bone 3 phase [id number] IMPRESSION: Normal 3 phase bone scan
== END 2024-10-05 08:07 | disposition home or self-care (01) ==
PROVIDERS: PCP Family Medicine; Visit Provider Nurse Practitioner
DX: Z96.652 Presence of left artificial knee joint (principal); M25.562 Pain in left knee
CPT/HCPCS: 78315; A9561

== ENCOUNTER → 2024-11-06 09:03 | Outpatient (BNVA) | payer MEDICARE, MEDICAID, SELFPAY | PROVIDERS: PCP Family Medicine; Visit Provider Specialist | DX: Z96.652 Presence of left artificial knee joint (principal); M25.562 Pain in left knee; G89.29 Other chronic pain | CPT/HCPCS: 99214 ==

== ENCOUNTER 2024-11-09 05:00 | Outpatient (RCR) | payer MEDICARE, MEDICAID, SELFPAY | END 2024-12-09 23:55 | disposition home or self-care (01) | LOC: MPT 05:00 | PROVIDERS: Visit Provider Specialist | DX: Z47.1 Aftercare following joint replacement surgery (principal); Z96.652 Presence of left artificial knee joint | CPT/HCPCS: 97110; 97140; 97162; G0283 ==

== ENCOUNTER → 2024-11-29 14:30 | Outpatient (BNVA) | payer MEDICARE, MEDICAID, SELFPAY | PROVIDERS: PCP Family Medicine; Visit Provider Podiatrist Foot & Ankle Surgery | DX: E11.42 Type 2 diabetes mellitus with diabetic polyneuropathy (principal); L60.3 Nail dystrophy; I73.9 Peripheral vascular disease, unspecified; G62.9 Polyneuropathy, unspecified; Z79.84 Long term (current) use of oral hypoglycemic drugs | CPT/HCPCS: 11721; 99214 ==

== ENCOUNTER → 2024-11-30 14:34 | Outpatient (BNVA) | payer MEDICARE, MEDICAID, SELFPAY | PROVIDERS: PCP Family Medicine; Visit Provider Orthopaedic Surgery | DX: Z98.1 Arthrodesis status (principal) | CPT/HCPCS: 72100; 99213 ==

== ENCOUNTER 2024-12-10 05:00 | Outpatient (RCR) | payer MEDICARE, MEDICAID, SELFPAY | END 2025-01-08 23:59 | disposition home or self-care (01) | LOC: MPT 05:00 | PROVIDERS: Visit Provider Orthopaedic Surgery | DX: M54.9 Dorsalgia, unspecified (principal); G89.29 Other chronic pain | CPT/HCPCS: 97110; 97140; 97162; G0283 ==

== ENCOUNTER 2024-12-10 06:30 | Outpatient (RCR) | payer MEDICARE, MEDICAID, SELFPAY | END 2025-01-08 23:59 | disposition home or self-care (01) | LOC: MPT 06:30 | PROVIDERS: Visit Provider Specialist | DX: Z47.1 Aftercare following joint replacement surgery (principal); Z96.652 Presence of left artificial knee joint | CPT/HCPCS: 97110; G0283 ==

== ENCOUNTER 2025-01-09 05:00 | Outpatient (RCR) | payer MEDICARE, MEDICAID, SELFPAY | END 2025-02-08 23:59 | disposition home or self-care (01) | LOC: MPT 05:00 | PROVIDERS: PCP Family Medicine; Visit Provider Orthopaedic Surgery | DX: M54.9 Dorsalgia, unspecified (principal); G89.29 Other chronic pain | CPT/HCPCS: 97110; 97140; G0283 ==

== ENCOUNTER → 2025-02-01 10:55 | Outpatient (BNVA) | payer MEDICARE, SELFPAY | PROVIDERS: PCP Family Medicine; Visit Provider Podiatrist Foot & Ankle Surgery | DX: E11.42 Type 2 diabetes mellitus with diabetic polyneuropathy (principal); L60.3 Nail dystrophy; I73.9 Peripheral vascular disease, unspecified; G62.9 Polyneuropathy, unspecified; Z79.84 Long term (current) use of oral hypoglycemic drugs | CPT/HCPCS: 11721 ==

== ENCOUNTER → 2025-02-06 10:28 | Outpatient (BNVA) | payer MEDICARE, SELFPAY | PROVIDERS: PCP Family Medicine; Visit Provider Orthopaedic Surgery | DX: Z98.1 Arthrodesis status (principal) | CPT/HCPCS: 72100; 99213 ==

== ENCOUNTER → 2025-02-20 14:57 | Outpatient (BNVA) | payer MEDICARE, MEDICAID, SELFPAY | PROVIDERS: PCP Family Medicine; Visit Provider Family Medicine | DX: I10 Essential (primary) hypertension (principal); E78.5 Hyperlipidemia, unspecified; Z76.89 Persons encountering health services in other specified circumstances; E11.9 Type 2 diabetes mellitus without complications | CPT/HCPCS: 80053; 80061; 83036; 84443; 85025 ==

== ENCOUNTER 2025-02-21 11:39 | Outpatient (CLI) | payer MEDICARE, MEDICAID, SELFPAY ==
--- NOTE | 2025-02-21 11:40 | MM_ITS ---
WS: [id number] BILATERAL 3D TOMOSYNTHESIS DIGITAL SCREENING MAMMOGRAPHY WITH CAD CLINICAL INFORMATION: SCREENING HISTORY: Screening mammogram. No current complaints. COMPARISON: 2023 TECHNIQUE: Bilateral CC and MLO views. FINDINGS: Scattered fibroglandular densities bilaterally. No suspicious focal mass, asymmetry, calcifications, or architectural distortion. No evidence of malignancy. MM/MM scr BI tomosynthesis [id number] IMPRESSION: DENSITY: There are scattered areas of fibroglandular density. BI-RADS: 2 - Benign. FOLLOW UP: 1 Year Follow-up Recommend return to annual screening mammography.
== END 2025-02-21 11:40 | disposition home or self-care (01) ==
LOC: MOBLMAM 11:41
PROVIDERS: PCP Family Medicine; Visit Provider Family Medicine
DX: Z12.31 Encounter for screening mammogram for malignant neoplasm of breast (principal); R92.323 Mammographic fibroglandular density, bilateral breasts
CPT/HCPCS: 77063; 77067

== ENCOUNTER 2025-04-09 22:33 | Inpatient (IN) | payer OTHER, MEDICAID, SELFPAY ==
--- OUTSIDE RECORDS SUMMARY | 2024-05-06 04:00 | XMS_ITS ---
Author Organization [facility] Address [address] [place] [address] Care Team Providers Care Wire Preparation Worker Name Role Phone Shannan Deluna MD Primary Care Provider Unavail able JanaeSadia Unavailable [phone] Migration, Provider Unavailable Unavailable REASON FOR VISIT EMR-Georgi Encounters Encounter Location Date Provider Diagnosis Migrated_Facility 0 0 05/06/2024 Provider Migration Plan Of Treatment Next Appt Details Provider Name:Duane Mcpherson, 04/25/2025 09:40:00 AM, [address] [place], [address], Progress Notes * JULISSA TeteElisaOB:1960 (64 yo F)Acc No.[id number]:05/06/2024 Patient: Selina CLEANING :1960 A ge:63 Y S ex:Female Address:[address] [place] [address] Subjective: * Chief Complaints: * E MR-Georgi * * Date:
--- OUTSIDE RECORDS SUMMARY | 2024-05-07 04:00 | XMS_ITS ---
Author Organization [facility] Address [address] [place] [address] Care Team Providers Care Marble Machine Tender Name Role Phone Shannan Deluna MD Primary Care Provider Unavail able JanaeSadia Unavailable Migration, Provider Unavailable Unavailable REASON FOR VISIT EMR-Georgi Encounters Encounter Location Date Provider Diagnosis Migrated_Facility 0 0 05/07/2024 Provider Migration Plan Of Treatment Next Appt Details Provider Name:Duane Mcpherson, 04/25/2025 09:40:00 AM, [address] [place], [address], Progress Notes * JULISSA TeteElisaOB:1960 (64 yo F)Acc No.[id number]:05/07/2024 Patient: Selina CLEANING :1960 A ge:63 Y S ex:Female Address:[address] [place] [address] Subjective: * Chief Complaints: * E MR-Georgi * * Date:
[2025-04-09 22:34] VITALS: BP 85/49; PULSE 87; RESP 16; TEMP 35.9; O2SAT 95; BMI 26.3
--- NOTE | 2025-04-09 22:41 | ECG_ITS ---
[facility] Date: 2025-04-09 Pat Name: Selina Henning Department: Room: 112 Gender: Female Building Tech: : 1960 Requested By: Aaron Serrano Order Number: [id number] De Jesus MD: Doe Jackson M.D. Measurements Intervals [place] Rate: 86 P: 82 MO: 178 QRS: 15 QRSD: 102 T: 64 QT: 414 QTc: 497 Interpretive Statements SINUS RHYTHM NONSPECIFIC T-WAVE ABNORMALITY Compared to ECG 06/08/2024 01:36:41 Sinus tachycardia no longer present T-wave abnormality still present Electronically Signed On 04-12-2025 08:46:12 CDT by Doe Jackson M.D. [id number]
--- NOTE | 2025-04-09 22:45 | XRR_ITS ---
PROCEDURE INFORMATION: Exam: XR Chest Exam date and time: 04/09/2025 10:51 PM Age: 64 years old Clinical indication: Other: Generalweakness/hypotension; Prior surgery; Surgery date: 6+ months; Surgery type: Cervical fusion. Rotator cuff; General weakness with hypotension; Additional info: Possible sepsis TECHNIQUE: Imaging protocol: Radiologic exam of the chest. Views: 1 view. COMPARISON: CR XR chest 1V portable [id number] 06/08/2024 1:55 AM FINDINGS: Lungs: Unremarkable. No consolidation. Pleural spaces: Unremarkable. No pleural effusion. No pneumothorax. Heart/Mediastinum: Unremarkable. No cardiomegaly. Vasculature: Atherosclerotic changes of the aorta are noted. Bones/joints: Partially imaged cervical fusion hardware is noted. Organs: Cholecystectomy clips are seen in the right upper quadrant. XR/XR chest 1V portable [id number] IMPRESSION: No acute findings.
--- NOTE | 2025-04-09 22:45 | ECG_ITS ---
[facility] Date: 2025-04-09 Pat Name: Selina Henning Department: Room: 112 Gender: Female Cake Wrapper: : 1960 Requested By: Aaron Serrano Order Number: [id number] De Jesus MD: Doe Jackson M.D. Measurements Intervals [place] Rate: 86 P: 82 WV: 178 QRS: 15 QRSD: 102 T: 64 QT: 414 QTc: 497 Interpretive Statements SINUS RHYTHM NONSPECIFIC T-WAVE ABNORMALITY Compared to ECG 06/08/2024 01:36:41 Sinus tachycardia no longer present T-wave abnormality still present Electronically Signed On 04-12-2025 09:02:14 CDT by Doe Jackson M.D. [id number]
--- OUTSIDE RECORDS SUMMARY | 2025-04-09 22:52 | XMS_ITS | Encounter Summary ---
Author Organization [facility] Address [address] [place] [address] Care Team Providers Care Bench Mover Name Role Phone Meet Voss MD Primary Care Provider [phone] Encounter Details Date Type Department Care Team (Latest Contact Info) Description 09/13/2000 Outpatient [facility] Medicine[address] [address] Talon Palomino MD [address] [place] [phone] Symptomatic states associated with artificial menopause (Primary Dx); Tobacco use disorder; Unspecified endocrine disorder Social History Tobacco Use Types Packs/Day Years Used Date Smoking Tobacco: Never Assessed Comments Unknown Sex and Gender Information Value Date Recorded Sex Assigned at Not on file Legal Sex Female 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
--- OUTSIDE RECORDS SUMMARY | 2025-04-09 22:52 | XMS_ITS | Encounter Summary ---
Author Organization [facility] Address [address] [place] [address] Care Team Providers Care Child Nutrition Director Name Role Phone Meet Voss MD Primary Care Provider [phone] Encounter Details Date Type Department Care Team (Latest Contact Info) Description 10/13/2000 Outpatient [facility] Medicine[address] [address] Talon Palomino MD [address] [place] [address] Other affections of shoulder region, not elsewhere classified (Primary Dx); Unspecified endocrine disorder Social History Tobacco Use Types Packs/Day Years Used Date Smoking Tobacco: Never Assessed Comments Unknown Sex and Gender Information Value Date Recorded Sex Assigned at Not on file Legal Sex Female 3:40 AM PROGRAM WRITER Gender Identity Not on file Sexual Orientation Not on file documented as of this encounter Plan of Treatment Not on file documented as of this encounter Visit Diagnoses Diagnosis Other affections of shoulder region, not elsewhere classified- Primary Unspecified endocrine disorder documented in this encounter Care Teams Child Nutrition Director Relationship Specialty Start Date End Date Meet Voss MD [address] [place] [address] PCP - General Family Practice 10/16/10 documented as of this encounter
--- OUTSIDE RECORDS SUMMARY | 2025-04-09 22:52 | XMS_ITS | Encounter Summary ---
Author Organization [facility] Address [address] [place] [address] Attn: [place] [address] Care Team Providers Care Gravel Truck Driver Name Role Phone Meet Voss MD Primary Care Provider [phone] Encounter Details Date Type Department Care Team (Latest Contact Info) Description 12/19/2000 Emergency SpoonRoney D, DO [address] [place] [phone] Social History Tobacco Use Types Packs/Day Years Used Date Smoking Tobacco: Never Assessed Comments Unknown Sex and Gender Information Value Date Recorded Sex Assigned at Not on file 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
--- OUTSIDE RECORDS SUMMARY | 2025-04-09 22:52 | XMS_ITS | Clinical Summary ---
Author Organization [facility] Address [address] [facility] [address] [place] [address] Phone Care Team Providers Care Livestock Broker Name Role Phone Meet Voss MD Primary Care Provider [phone] Allergies No known active allergies Medications lovastatin (MEVACOR) 40 mg tablet Take 40 mg by mouth daily with supper. Active mirtazapine (REMERON) 15 mg tablet Take 15 mg by mouth daily at bedtime. Active lansoprazole (PREVACID) 30 mg Capsule, Delayed Release(E.C.) Take 30 mg by mouth daily. Active lisinopril-hydr ochlorothiazide (ZESTORETIC) 20-12.5 mg tablet Take 1 Tab by mouth daily. Active venlafaxine (EFFEXOR) 75 mg tablet Take 75 mg by mouth 3 times daily. Active busPIRone (BUSPAR) 10 mg tablet Take 10 mg by mouth 3 times daily. Active antipyrine-adolfo ocaine (AURODEX) 5.4-1.4 % Drops Administer 5 Drops in both ears every 4 hours. 10 mL 0 4 Active amitriptyline (ELAVIL) 10 mg tablet Take 1 Tab by mouth daily at bedtime. 30 Tab 0 4 Active azithromycin (ZITHROMAX Z-ALEJANDRA) 250 mg tablet Take 2 tabs the first day and 1 tab days 2-5. 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 Gender Identity Not on file Sexual Orientation Not on file Last Filed Vital Signs Vital Sign Reading Time Taken Comments Blood Pressure 136/85 01/19/2018 11:00 PM CDT Pulse 100 08/31/2013 1:22 PM WATER SOFTENER SERVICER Temperature 36.4 C (97.6 F) 01/19/2018 4:09 PM CDT Respiratory Rate 16 01/19/2018 11:00 PM CDT Oxygen Saturation 95% 01/19/2018 11:00 PM CDT Inhaled Oxygen Concentration - - Weight 77.1 kg (170 lb) 01/19/2018 2:05 PM CDT Height 162.6 cm (5' 4 ) 01/19/2018 2:05 PM CDT Body Mass Index 29.18 01/19/2018 2:05 PM CDT Plan of Treatment Health Maintenance Due Date Last Done Comments DTAP/TDAP/TD VACCINES (1 - Tdap) 12/27/1978 PNEUMOCOCCAL VACCINE 50+ YEA RS (1 of 2 - PCV) 12/27/1978 BREAST CANCER SCREENING 1999 FIT-DNA Q 3 years 12/27/2004 FIT/FOBT Q 1 year 12/27/2004 Flex Sig/CT Colonography Q 5 years 12/27/2004 ZOSTER VACCINE (1 of 2) 12/27/2009 COLORECTAL SCREENING 01/14/2021 01/14/2011, 01/14/20 11 Colorectal Cancer Screening 01/14/2021 OSTEOPOROSIS SCREENING 12/27/2024 INFLUENZA VACCINE (#1) 2025 RSV VACCINE (60+ or ) (1 - 1-dose 75+ series) 12/27/2034 Procedures Procedure Name Priority Date/Time Associated Diagnosis Comments ENDOSCOPY, COLON, DIAGNOSTIC Routine 01/14/2011 6:51 AM CDT Nausea with vomiting Diarrhea from Last 3 Months or Most Recently Relevant to Health Maintenance Results * ENDOSCOPY, COLON, DIAGNOSTIC (01/14/2011 6:51 AM CDT) Narrative Transcriptions Natanael Gupta MD - 01/14/2011 6:51 AM CDT [place], [place] ENDOSCOPY NAME SELINA COSTA [facility] # [id number] 1960 AGE 50Y PHYSICIAN Natanael Gupta MD DATE: 01/13/2011 PROCEDURE: Colonoscopy. INDICATION: Diarrhea. MEDICATIONS: Versed 5 mg IV and fentanyl 100 mcg IV in titrated doses. DESCRIPTION OF THE PROCEDURE: After reviewing the risks, benefits, andalternatives of the procedure with the patient, she signed a consent form.She was placed in the left lateral decubitus position and IV conscioussedation was administered while monitoring blood pressure, pulse oximetryand EKG. The colonoscope was introduced through the rectum and underdirect visualization was advanced to the terminal ileum. Carefulinspection of the mucosa was made as the colonoscope was withdrawn. Thequality of the preparation was good. The patient tolerated the procedurewell and there were no immediate complications. FINDINGS: Retroflex examination in the rectum revealed small internalhemorrhoids. A 6-mm sigmoid polyp was removed with the cold snare. A4-mm transverse colon polyp was removed with the cold snare. The rest ofthe visualized colonic mucosa was normal without masses, polyps,diverticula, or inflammation. The terminal ileum was normal. Randombiopsies were obtained from the right colon. IMPRESSION: Internal hemorrhoids. Two small polyps. Biopsies obtainedlooking for microscopic colitis. RECOMMENDATIONS: I will follow up on the biopsies. Natanael Gupta MD medq D: [id number] V: [id number] cc: Jim Voss MD Natanael Gupta MD GI PROCEDURE ORDERABLES Final Result from Last 3 Months or Most Recently Relevant to Health Maintenance Insurance [facility] [place] Subscriber Plan / Payer (Ef fective 2017-Present) Name:Costa, Selina Homero Relation to Subscriber:Self Name:Costa, Selina Homero Payer ID:[id number] Group ID:Not on file Type:Medicaid Address: [address] DUAL COMPLETE MCR PPO D-SNP Advance Directives For more information, please contact: [phone] * Full Code (Latest Code Status on File) Date Activated Date Inactivated Comments 01/13/2011 2:54 PM 01/13/2011 6:38 PM * Full Code Date Activated Date Inactivated Comments 10/21/2010 12:48 PM 10/21/2010 4:30 PM Care Teams Livestock Broker Relationship Specialty Start Date End Date Meet Voss MD [address] [place] [address] PCP - General Family Practice 10/16/10
--- OUTSIDE RECORDS SUMMARY | 2025-04-09 22:52 | XMS_ITS | Encounter Summary ---
Author Organization [facility] Address [address] [place] [address] Care Team Providers Care Cd Storage And Materials Make Up Helper Name Role Phone Meet Voss MD Primary Care Provider [phone] Encounter Details Date Type Department Care Team (Latest Contact Info) Description 09/03/2000 Outpatient [facility] [address] [phone] Ian Harvey MD [address] [phone] Pain in joint, shoulder region (Primary Dx) Social History Tobacco Use Types Packs/Day Years Used Date Smoking Tobacco: Never Assessed Comments Unknown Sex and Gender Information Value Date Recorded Sex Assigned at Not on file 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
--- OUTSIDE RECORDS SUMMARY | 2025-04-09 22:52 | XMS_ITS | Patient Health Record ---
Author Organization [facility] Address [address] [place] [address] Care Team Providers Care Blankbook Forwarder Name Role Phone Shannan Deluna MD Primary Care Provider Unavail able VashtiAndreiSadia Unavailable Migration, Provider Unavailable Unavailable Reason For Referral Reason Eval and Treat Diagnosis 1 Chronic pain (G89.29 ) Referring Provider First Name Julian Referring Provider Last Name Dandy Referring Provider Speciality Family Med icine Referred Organization [facility] Referred Provider Duane Mcpherson Referred Address [address] [facility],[place], [place],[address], Referred Provider Specialty Intervention al Pain Medicine General Notes Yola Alexander 10:50:18 AM >mailing npp, pt is scheduled Referral Priority Routine Medications Medication SIG (Take, Route, Frequency, Duration) Notes Start Date End Date Status Hydroxyzine Hydrochloride 25 MG Oral Capsule Hydroxyzine Hydrochloride 25 MG Oral Capsule 07/02/2015 Active Sumatriptan 50 MG Oral Tablet Sumatriptan 50 MG Oral Tablet 07/02/2015 Active 12 HR Carbamazepine 400 MG Extended Release Tablet 12 HR Carbamazepine 400 MG Extended Release Tablet 07/02/2015 Active tapentadol 75 MG Oral Tablet tapentadol 75 MG Oral Tablet 08/09/2015 Active topiramate 50 MG Oral Tablet topiramate 50 MG Oral Tablet 07/02/2015 Active Magnesium Oxide Magnesium Oxide 07/02/2015 900 Active Lorazepam 0.5 MG Oral Tablet Lorazepam 0.5 MG Oral Tablet 07/02/2015 Active Omeprazole 40 MG Enteric Coated Capsule Omeprazole 40 MG Enteric Coated Capsule 07/02/2015 Active Mirtazapine 15 MG Oral Tablet Mirtazapine 15 MG Oral Tablet 07/02/2015 Active Social History Social History Additional Details Category Social Info Options Details zzMigrated Social History Migrated Social History Smoking Status:Tobacco smoking consumption unknown (finding) Problems Problem Type SNOMED Code ICD Code Onset Dates Problem Status W/U Status Risk Notes Problem Chronic pain syndrome (426177797) Chronic pain syndrome (G89.4) Active confirmed Problem Chronic pain (01980433) Chronic pain (G89.29) Active confirmed Encounters Encounter Location Date Provider Diagnosis Migrated_Facility 0 0 05/06/2024 Provider Migration Migrated_Facility 0 0 05/07/2024 Provider Migration Plan Of Treatment Next Appt Details Provider Name:Duane Mcpherson, 04/25/2025 09:40:00 AM, [address] [place], [address], Insurance Providers Payer Name Payer Address Payer Phone Subscriber Number Group Number Insured Name Patient Relationship to Insured Coverage Start Date Coverage End Date NOT IN NETWORK - UHC Medicare Dual Complete HMO [address] [address] [place] [address] [phone] [id number] Selina Henning Self - patient is the insured UHC Medicare Dual Complete [place] [address] [address] [place] [address] [id number] Selina Castillo Self - patient is the insured
--- OUTSIDE RECORDS SUMMARY | 2025-04-09 22:52 | XMS_ITS | Clinical Summary ---
Author Organization [facility] Address [address] Merrill: [place] [address] Care Team Providers Care Axminster Weaver Name Role Phone Meet Voss MD Primary Care Provider [phone] Allergies Active Allergy Reactions Criticality Noted Date Comments Metoprolol Other (See Comments) 10/09/2024 It slows my heart rate down Perfume Oil Nausea and Vomiting Low 10/09/2024 Incense Medications azithromycin (ZITHROMAX) 250 mg tablet Take 2 tabs the first day and 1 tab days 2-5. 1 Package 0 8 Active atorvastatin (LIPITOR) 40 mg tablet take one tablet by mouth daily at bedtime 4 Active benzonatate (TESSALON) 100 mg capsule 1 CAPSULE BY MOUTH THREE TIMES DAILY PRNC 5 Active hydroCHLOROthia zide 25 mg tablet Take 1 Tablet by mouth daily. 5 Active busPIRone (BUSPAR) 10 mg tablet Take 10 mg by mouth 3 times daily. Active HYDROcodone-oscar taminophen (NORCO) 5-325 mg tablet TAKE 1 TABLET BY MOUTH EVERY 4 HOURS NEEDED FOR PAIN FOR SEVEN DAYS MAX DAILY DOSE SIX TABLETS 5 Active hydrOXYzine pamoate (VISTARIL) 25 mg capsule TAKE ONE CAPSULE BY MOUTH AT BEDTIME NEEDED FOR INSOMNIA WILL CAUSE DROWSINESS 5 Active lidocaine (LIDODERM) 5 % Adhesive Patch, Medicated APPLY ONE PATCH BY TRANSDERMAL ROUTE DAILY MAY WEAR UP TO 12 HOURS 5 Active losartan (COZAAR) 50 mg tablet Take 1 Tablet by mouth 2 times daily. 5 Active metFORMIN (GLUCOPHAGE) 500 mg tablet TAKE 1 TABLET BY MOUTH ONCE DAILY WITH MORNING MEAL 5 Active mirtazapine (REMERON) 15 mg tablet take 3 tablets by mouth daily at bedtime 5 Active omeprazole (PriLOSEC) 20 mg Capsule, Delayed Release(E.C.) TAKE ONE CAPSULE BY MOUTH EVERY DAY 30 MINUTES BEFORE MEAL 5 Active ondansetron (ZOFRAN ODT) 4 mg Tablet, Rapid Dissolve DISSOLVE ONE TABLET BY MOUTH EVERY EIGHT HOURS NEEDED FOR NAUSEA/VOMITING 5 Active prazosin (MINIPRESS) 5 mg capsule TAKE 3 CAPSULES BY MOUTH DAILY AT BEDTIME 4 Active predniSONE (DELTASONE) 20 mg tablet Take 1 Tablet by mouth 2 times daily. 5 Active traMADoL (ULTRAM) 50 mg tablet take 1 tablet by mouth three times daily as needed for pain 5 Active venlafaxine (EFFEXOR) 75 mg tablet Take 75 mg by mouth. Active daridorexant (Quviviq) 50 mg TabletIndicatio ns:Chronic insomnia Take 50 mg by mouth daily at bedtime. 30 Tablet 2 5 Active suvorexant (Belsomra) 5 mg tabletIndicatio ns:Chronic insomnia Take 1 Tablet (5 mg) by mouth nightly as needed for Insomnia. 30 Tablet 5 Active Active Problems Problem Noted Date Diagnosed Date HTN (hypertension) 08/31/2013 Anxiety state 08/31/2013 Hyperlipidemia 08/31/2013 GERD (gastroesophageal reflux disease) 4 Insomnia 08/31/2013 Hernia, hiatal 08/31/2013 Diarrhea 01/13/2011 Nausea with vomiting 10/21/2010 Encounters Date Type Department Care Team Description 03/27/2025 External Device Data ST[facility] ABSTRACTION Provider, Abstract 03/02/2025 Chart Note [facility] [address] [place] [address] Dolores Felix RUST Follow Up 02/13/2025 External Device Data [facility] ABSTRACTION Provider, Abstract 02/13/2025 External Device Data [facility] ABSTRACTION Provider, Abstract 01/25/2025 [facility] [address] Bobby White MD Chronic insomnia (Primary Dx) 01/24/2025 External Device Data ST[facility] ABSTRACTION Provider, Abstract 01/24/2025 External Device Data [facility] ABSTRACTION Provider, Abstract from Last 3 Months Social History Tobacco Use Types Packs/Day Years Used Date Smoking Tobacco: Former Cigarettes Smokeless Tobacco: Never Tobacco Cessation:Counseling Given: Not Answered Alcohol Use Standard Drinks/Week Comments No 0 (1 standard drink = 0.6 oz pur e alcohol) Comments Unknown Sex and Gender Information Value Date Recorded Sex Assigned at Not on file Legal Sex Female 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 Gender Identity Not on file Sexual Orientation Not on file Last Filed Vital Signs Vital Sign Reading Time Taken Comments Blood Pressure 132/58 11/14/2024 9:55 PM CDT Pulse 87 10/09/2024 1:09 PM CDT Temperature 36.4 C (97.6 F) 01/19/2018 4:09 PM CDT Respiratory Rate 16 01/19/2018 11:00 PM CDT Oxygen Saturation 98% 10/09/2024 1:09 PM CDT Inhaled Oxygen Concentration - - Weight 61.7 kg (136 lb) 10/09/2024 1:09 PM CDT Height 162.6 cm (5' 4 ) 10/09/2024 1:09 PM CDT Body Mass Index 23.34 10/09/2024 1:09 PM CDT Plan of Treatment Health Maintenance Due Date Last Done Comments DTAP/TDAP/TD VACCINES (1 - Tdap) 12/27/1978 BREAST CANCER SCREENING 1999 FIT-DNA Q 3 years 12/27/2004 FIT/FOBT Q 1 year 12/27/2004 Flex Sig/CT Colonography Q 5 years 12/27/2004 PNEUMOCOCCAL VACCINE 50+ YEA RS (1 of 1 - PCV) 12/27/2009 ZOSTER VACCINE (1 of 2) 12/27/2009 COLORECTAL SCREENING 01/14/2021 01/14/2011, 01/15/20 11 Colorectal Cancer Screening 01/14/2021 OSTEOPOROSIS SCREENING 12/27/2024 INFLUENZA VACCINE (#1) 2025 06/25/2020 COVID-19 Vaccine ( season) 2025 06/12/2021, 11/04/2020, 10/04/2020 RSV VACCINE (60+ or ) (1 - 1-dose 75+ series) 12/27/2034 Procedures Procedure Name Priority Date/Time Associated Diagnosis Comments ENDOSCOPY, COLON, DIAGNOSTIC Routine 01/14/2011 6:51 AM CDT from Last 3 Months or Most Recently Relevant to Health Maintenance Results * ENDOSCOPY, COLON, DIAGNOSTIC (01/14/2011 6:51 AM CDT) 01/14/2011 6:51 AM CDT Narrative Procedure Note Natanael Gupta MD - 01/13/2011 3:40 PM CDT Procedures signed by Natanael Gupta MD at 01/14/2011 7:54 AM Author: Naatnael Gupta MD Service: -- Author Type: Physician Filed: 01/14/2011 7:54 AM Date of Service: 01/14/2011 6:51 AM Status:Signed Costume Draper: Natanael Gupta MD (Physician) Procedure Orders 1. ENDOSCOPY, COLON, DIAGNOSTIC [[id number]] ordered by at 01/06/11 [facility] [place], [place] ENDOSCOPY NAME SELINA COSTA [facility] # [id number] 1960 AGE 50Y PHYSICIAN Natanael Gupta MD [...] the biopsies. Natanael Gupta MD medq D: [id number] V: [id number] cc: Jim Voss MD Natanael Gupta MD GI PROCEDURE ORDERABLES Final Result Performing Organization Address City/State/[facility] Co de Phone Number [facility] from Last 3 Months or Most Recently Relevant to Health Maintenance [place]ID [place] [facility] DUAL COMPLETE PPO [facility] [id number] Care Teams Axminster Weaver Relationship Specialty Start Date End Date Meet Voss MD [address] [place] [address] PCP - General Family Practice 10/16/10
--- OUTSIDE RECORDS SUMMARY | 2025-04-09 22:52 | XMS_ITS | Encounter Summary ---
Author Organization [facility] Address [address] [place] [address] Care Team Providers Care Neon Sign Erector Name Role Phone Meet Voss MD Primary Care Provider [phone] Encounter Details Date Type Department Care Team (Latest Contact Info) Description 09/30/[address] [address] Talon Palomino MD [address] [place] [address] Sprain and strain of unspecified site of shoulder and upper arm (Primary Dx); Sprain rotator cuff Social History Tobacco Use Types Packs/Day Years Used Date Smoking Tobacco: Never Assessed Comments Unknown Sex and Gender Information Value Date Recorded Sex Assigned at Not on file 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
--- OUTSIDE RECORDS SUMMARY | 2025-04-09 22:52 | XMS_ITS | Encounter Summary ---
Author Organization [facility] Address [address] [place] [address] Care Team Providers Care Maintenance Helper Name Role Phone Meet Voss MD Primary Care Provider [phone] Encounter Details Date Type Department Care Team (Latest Contact Info) Description 10/05/2000 Outpatient [facility] Medicine[address] [address] Talon Palomino MD [address] [place] [address] Sprain and strain of unspecified site of shoulder and upper arm (Primary Dx) Social History Tobacco Use Types Packs/Day Years Used Date Smoking Tobacco: Never Assessed Comments Unknown Sex and Gender Information Value Date Recorded Sex Assigned at Not on file 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
--- OUTSIDE RECORDS SUMMARY | 2025-04-09 22:52 | XMS_ITS | Encounter Summary ---
Author Organization [facility] Address [address] [place] [address] Care Team Providers Care Client Support Associate Name Role Phone Meet Voss MD Primary Care Provider [phone] Reason for Visit * Reason Comments Follow Up Encounter Details Date Type Department Care Team ([facility] st Contact Info) Description 03/02/2025 Chart Note [facility] [address] [place] [phone] Nils Alvarenga Dolores, [facility] [address] [place], [place] [id number] Follow Up Social History Tobacco Use Types Packs/Day Years Used Date Smoking Tobacco: Former Cigarettes Smokeless Tobacco: Never Alcohol Use Standard Drinks/Week Comments No 0 (1 standard drink = 0.6 oz pur e alcohol) Comments Unknown Sex and Gender Information Value Date Recorded Sex Assigned at Not on file 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
[2025-04-09 22:54] VITALS: BP 102/50; PULSE 89; O2SAT 98
[2025-04-09 22:56] VITALS: BP 91/52; PULSE 90; RESP 18; O2SAT 96
[2025-04-09 23:01] LABS: Hematocrit 27.2 % (36-47); Hemoglobin 8.90 g/dL (11.27-16.99); Mean Corpuscular HGB Conc 32.7 g/dL (30-55); Mean Corpuscular Hemoglobin 27.0 pg (27-33); Mean Corpuscular Volume 82.4 fl (85-98); Nucleated Red Blood Cells % 0 %; Platelet Count 347 10^3/cmm (157-399); Red Blood Count 3.30 10^6/uL (3.85-5.65); White Blood Count 8.48 10^3/uL (3.29-11.43)
[2025-04-09 23:07] LABS: Glucose Urine UA Negative (Normal); Nitrate Urine Negative (Negative); Specific Gravity, Urine 1.015 (1.005-1.030)
[2025-04-09 23:15] VITALS: BP 91/57; PULSE 87; RESP 19; O2SAT 98
[2025-04-09 23:29] LABS: Add Urine Microscopic? YES; UA Slide Review UA Slide Review Perf
[2025-04-09 23:29] LABS: Alanine Aminotransferase 18 U/L (0-33); Albumin Level 3.4 g/dL (3.5-5.2); Alkaline Phosphatase 153 U/L (35-105); Aspartate Amino Transferase 17 U/L (0-32); Blood Urea Nitrogen 12 mg/dL (8-23); Calcium 8.1 mg/dL (8.5-10.5); Carbon Dioxide 24 mmol/L (22-29); Chloride 92 mmol/L (98-107); Creatinine Clr Calc Pharmacy 53.6704; Globulin 2.7 g/dL (1.3-4.6); Glucose 166 mg/dL (65-115); Magnesium 1.5 mg/dL (1.7-2.3); Osmolality Calculated 276 mOsm/kg (285-295); Sodium 131 mmol/L (136-145); Total Protein 6.1 g/dL (6.6-8.7)
[2025-04-09 23:30] VITALS: BP 112/57; PULSE 82; RESP 14; O2SAT 96
[2025-04-09 23:30] LABS: Lactic Sepsis W/Reflex 2.1 mmol/L (0.5-2.2)
[2025-04-09 23:31] LABS: Procalcitonin 0.05 ng/mL (0-0.5)
[2025-04-09 23:35] LABS: Anion Gap 17.6 (5-19); Troponin(5th) Baseline 8 ng/L (0-10)
[2025-04-09 23:36] LABS: Potassium 2.6 mmol/L (3.5-5.1)
[2025-04-09 23:45] VITALS: BP 89/52; PULSE 85; RESP 15; O2SAT 96
--- NOTE | 2025-04-09 23:48 | ED_ITS ---
HPI - Weakness 2 General: Chief complaint: Weakness Stated complaint: Hypotension Time Seen by Provider: 04/09/25 22:35 History of Present Illness: 64 yo F with Hx of primary HTN, T2DM, HL D, fibromyalgia, chronic back pain, and IBS presented via EMS for hypotension (reported BP 80/40) and near-syncope on standing. Pt reports 3 days of dizziness and feeling unwell. Also notes left shoulder and upper arm pain. Denies fever, cough, dysuria, abdominal pain, chest pain, or chest pressure. Took all prescribed BP meds today. States oral intake reasonable. EMS administered ~1.1 L IV fluids prior to arrival. Pt denies Hx of CHF. ROS otherwise negative as above. Pt is alert and oriented but somnolent. Related Data Home Medications ?Medication ?Instructions ?Recorded ?Confirmed acetaminophen 325 mg tablet 325 mg PO QID PRN Pain (Sc shari 11/09/22 04/03/25 Score 1-3) Previous Rx's ?Medication ?Instructions ?Recorded diabetic shoes with 3 inserts #1 ea 05/23/24 Fast form #1 ea 06/15/24 atorvastatin 40 mg tablet 40 mg PO DAILY 90 days #90 t abs 02/20/25 gabapentin 800 mg tablet 800 mg PO TID 30 days #90 ta bs 02/20/25 hydrochlorothiazide 25 mg tablet 25 mg PO DAILY 90 day s #90 tabs 02/20/25 losartan 50 mg tablet 50 mg PO BID 90 days #180 ta bs 02/20/25 metformin 500 mg tablet 500 mg PO DAILY 90 days #90 tabs 02/20/25 Diabetic Shoes with 3 pairs of #1 ea 02/23/25 inserts escitalopram oxalate 10 mg tablet 10 mg PO DAILY #30 t abs 03/09/25 quetiapine 150 mg tablet 150 mg PO BEDTIME #30 tabs 0 03/09/25 tizanidine 4 mg tablet 8 mg (2 x 4 mg) PO BID PRN m uscle 03/19/25 spasticity #120 tabs amitriptyline 25 mg tablet 25 mg PO BEDTIME #30 tabs 0 04/03/25 buspirone 5 mg tablet 5 mg PO BID #60 tabs 5 Allergies Allergy/AdvReac Type Severity Reaction Status Date / Time cariprazine (From [facility] [place] Allergy ADR-Shakine Verified 04/03/25 11:34 ss zolpidem (From Ambien) Allergy ADR-Confusi Verified 04/03/25 11:34 on metoprolol AdvReac Severe heart block Verified 04/03/25 11:34 PFS ED 2 PFS: Medical History (Updated 04/09/25 @ 23:47 by Aaron Cerrato MD) Psychiatric care Chronic back pain Fibromyalgia Family history of ischemic heart disease and other diseases of the circulatory system Mixed hyperlipidemia Type 2 diabetes mellitus with diabetic polyneuropathy, without long-term current use of insulin Irritable bowel syndrome with diarrhea Primary hypertension Family history of kidney cancer Bilateral renal cysts Surgical History Status post total left knee replacement using cement Surgery: Left total knee arthroplasty using cement. Surgeon: Dr. Vanessa Garcia MD. Date of surgery: August 2018. History of hysterectomy History of rotator cuff surgery History of cholecystectomy History of back surgery History of knee replacement History of cervical spinal surgery Family History Father , AT 88 Heart attack Diabetes Mother , AT AGE 85 Heart attack Diabetes Sister Heart attack Social History Smoking and tobacco/nicotine status: former use of tobacco/nicotine (Quit 2012) Alcohol intake: never Substance/Drug Use: never Marital status: Current occupational status: retired and disabled Physical Exam 2 Const: COMMON NORMALS: no acute distress, patient oriented x3 and alert HENMT: COMMON NORMALS: normocephalic and atraumatic HEAD & SCALP: n ormocephalic and atraumatic Eye: COMMON NORMALS: Equal, round and reactive pupils present, EOMs intact bilaterally and no scleral icterus PUPIL: Yes Equal, round and reactive pupils present Resp: COMMON NORMALS: normal respiratory effort and No retractions Cardio: COMMON NORMALS: regular rate, regular rhythm and No murmurs present (Cardio) RATE: regular rate RHYTHM: regular rhythm GI: COMMON NORMALS: Normal to inspection, nondistended, normoactive bowel sounds present, Soft to palpation and non-tender PALPATION: Yes Soft to palpation Neuro: COMMON NORMALS: patient oriented x3 SENSORIUM/ORIENTATION: Yes alert OTHER: Generally weak, no lateralizing deficits, mildly somnolent Skin: COMMON NORMALS: no rashes or lesions noted GENERAL SKIN EXAM: no rashes or lesions noted Course 2 Vital Signs: Vital signs: Vital Signs Temperature 96.6 F L 04/09/25 22:34 Pulse Rate 87 04/09/25 23:15 Respiratory Rate 19 H 04/09/25 23:15 Blood Pressure 91/57 04/09/25 23:15 Pulse Oximetry 98 04/09/25 23:15 Oxygen Delivery Me thod Room Air 04/09/25 22:56 MDM - Weakness Medical Decision Making 64 yo F with HTN, T2DM, HLD presents with 3 days dizziness, near-syncope, and hypotension; denies fever, cough, dysuria, abdominal or chest pain. Took all BP meds today. Received ~1.1 L IV fluids prehospital. BP remains low with MAP 55. Exam: A&O but somnolent, speech clear, no focal deficits, regular heart rate. No overt signs of sepsis on exam per provider. ECG 2233: interpretation by me: sinus rhythm, rate 86, no ST elevation or depression, no T wave inversions, QTc 458. No imaging discussed. Hypotension likely volume responsive vs medication-related hypotension. Sepsis considered less likely given no obvious signs and symptom denial. ACS less likely given no chest pain and non-ischemic ECG. Plan to give IV fluids to total 2 L; if still hypotensive after fluids, start norepinephrine. Anticipate hospital admission for BP stabilization and further evaluation. Pending additional diagnostics per inpatient course. After receiving 30 mL/kg IV fluids, blood pressure has improved and mean arterial pressure is 75. Labs show hypokalemia, hypomagnesemia, hypophosphatemia, all of which will be repleted. I spoke with the on-call hospitalist who will admit the patient for further observation and care and repletion of electrolytes. Lab Data 04/09/25 22:51 04/09/25 22:51 Radiology Impressions Chest X-Ray 04/09/25 22:45 IMPRESSION: No acute findings. Laboratory Results WBC 8.48 10^3/uL (3.29-11.43) 04/09/25 22:51 RBC 3.30 10^6/uL (3.85-5.65) L 04/09/25 22:51 Hgb 8.90 g/dL (11.27-16.99) L 04/09/25 22:51 Hct 27.2 % (36-47) L 04/09/25 22:51 MCV 82.4 fl (85-98) L 04/09/25 22:51 MCH 27.0 pg (27-33) 04/09/25 22:51 MCHC 32.7 g/dL (30-55) 04/09/25 22:51 RDW 12.8 % (12.1-15.1) 04/09/25 22:51 Plt Count 347 10^3/cmm (157-399) 04/09/25 22:51 MPV 8.7 fL (7.4-10.4) 04/09/25 22:51 Neut % (Auto) 67.3 % 04/09/25 22:51 Lymph % (Auto) 21.8 % 04/09/25 22:51 Dent % (Auto) 7.1 % 04/09/25 22:51 Eos % (Auto) 2.6 % 04/09/25 22:51 Baso % (Auto) 0.8 % 04/09/25 22:51 Neut # (Auto) 5.71 10^3/uL (1.8-7.7) 04/09/25 22:51 Lymph # (Auto) 1.9 10^3/uL (0.8-4.8) 04/09/25 22:51 Dent # (Auto) 0.6 10^3/uL (0.2-0.9) 04/09/25 22:51 Eos # (Auto) 0.2 10^3/uL (0.0-0.8) 04/09/25:51 Baso # (Auto) 0.1 10^3/uL (0.0-0.1) 04/09/25:51 Nucleated RBC % (auto) 0 % 04/09/25: Nucleated RBCs # 0.0 /100WBC 04/09/25 22:51 Sodium 131 mmol/L (136-145) L 04/09/25 22:51 Potassium 2.6 mmol/L (3.5-5.1) L* 04/09/25 22:51 Chloride 92 mmol/L (98-107) L 04/09/25 22:51 Carbon Dioxide 24 mmol/L (22-29) 04/09/25 22:51 Anion Gap 17.6 (5-19) 04/09/25 22:51 BUN 12 mg/dL (8-23) 04/09/25 22:51 Creatinine 1.0 mg/dL (0.5-0.9) H 04/09/25 22:51 GFR Calculation 55.6 mL/min (90-130) L 04/09/25 22:51 Glucose 166 mg/dL (65-115) H 04/09/25 22:51 Calculated Osmolality 276 mOsm/kg (285-295) L 04/09/25 22:51 Lactic Acid 2.1 mmol/L (0.5-2.2) 04/09/25 22:51 Calcium 8.1 mg/dL (8.5-10.5) L 04/09/25 22:51 Phosphorus 2.2 mg/dL (2.5-4.5) L 04/09/25 22:51 Magnesium 1.5 mg/dL (1.7-2.3) L 04/09/25 22:51 Total Bilirubin 0.2 mg/dL (0.15-1.2) 04/09/25 22:51 AST 17 U/L (0-32) 04/09/25 22:51 ALT 18 U/L (0-33) 04/09/25 22:51 Alkaline Phosphatase 153 U/L (35-105) H 04/09/25 22:51 Troponin T Baseline 8 ng/L (0-10) 04/09/25 22:51 Total Protein 6.1 g/dL (6.6-8.7) L 04/09/25 22:51 Albumin 3.4 g/dL (3.5-5.2) L 04/09/25 22:51 Globulin 2.7 g/dL (1.3-4.6) 04/09/25 22:51 Procalcitonin 0.05 ng/mL (0-0.5) 04/09/25 22:51 Urine Color Yellow (Yellow) 04/09/25 22:50 Urine Appearance Clear (CLEAR) 04/09/25 22:50 Urine pH 7.0 (5-7) 04/09/25 22:50 Ur Specific [place] 1.015 (1.005-1.030) 04/09/25 22:50 Urine Protein 1+ (Negative) A 04/09/25 22:50 Urine Glucose (UA) Negative (Normal) 04/09/25 22:50 Urine Ketones Negative (Negative) 04/09/25 22:50 Urine Blood Negative (Negative) 04/09/25 22:50 Urine Nitrate Negative (Negative) 04/09/25 22:50 Urine Bilirubin Negative (Negative) 04/09/25 22:50 Urine Urobilinogen 1.0 mg/dL (Negative) 04/09/25 22:50 Ur Leukocyte Esterase Negative (Negative) 04/09/25 22:50 Urine RBC None /hpf (0-2) 04/09/25 22:50 Urine WBC None /hpf (0-5) 04/09/25 22:50 Ur Squamous Epith Cells 0-4 /hpf (0-5) H 04/09/25 22:50 Amorphous Sediment Not Reportable 04/09/25 22:50 Hyaline Casts 5-10 /lpf H 04/09/25 22:50 Urine Mucus 1+ /hpf 04/09/25 22:50 All radiology interpretation(s) finalized by discharge Discharge Plan Discharge Patient Disposition: Admitted As Inpatient Clinical Impression: Acute hypotension, Hypokalemia, Hypomagnesemia, Hypophosphatemia, Syncope Condition: Stable Coding Level of Care Code ED Prosthetic Aides Teacher for Zac Zaragoza
[2025-04-09] MEDS: lidocaine 1% 5 ML in potassium chloride premix 100 ML 26.25 ML IV (23:55)
[2025-04-10] VITALS (24 sets, daily range): BP systolic 89–171; BP diastolic 53–96; PULSE 78–96; RESP 14–26; TEMP 36–36.4; O2SAT 95–100; BMI 27.8
[2025-04-10 00:44] LABS: Reflex Lactate Order REFLEX LACTIC ORDERD
[2025-04-10 01:13] LABS: Troponin 5 2HR 7.70 ng/L (0-10)
[2025-04-10 01:14] LABS: Lactic Acid level (Lactate) 0.9 mmol/L (0.5-2.2)
[2025-04-10 01:28] LABS: Troponin 5 2HR Delta -0.30 ABS# (0-10)
--- NOTE | 2025-04-10 02:01 | P.HP_ITS ---
Providers/Chief Complaint 2 Admitting Physician: Esau Nuñez MD Primary Care Provider: Julian Dorman DO Chief Complaint: Hypotension History of Present Illness As per the previous note and the patient Selina Henning is a 64 year old female with Hx of primary HTN, T2DM, HLD, fibromyalgia, chronic back pain, and IBS presented via EMS for hypotension (reported BP 80/40) and near-syncope on standing. Pt reports 3 days of dizziness that has worsened from the previous days and feeling unwell. No nausea or vomiting. Patient reported having dizziness from the last few months and it is always there on and off but recently has worsened from the last 2 to 3 days. Patient did not report any loss of consciousness or hitting her head. No history of any focal neurological deficit, blurriness of vision. The patient did not report any chest pain, chest pressure, abdominal pain. However the patient reported having fecal incontinence on and off but no teddy diarrhea or foul-smelling stools. No orthopnea or PND. No recent sick contacts. No history of fever chills. The patient does not use any assistance device for ambulation. Review of Systems 2 General: Reports: 10 or more systems reviewed and unremarkable except in HPI and below Medications/Allergies Home Medications ?Medication ?Instructions ?Recorded ?Confirmed ?Last Taken ?Type acetaminophen 325 mg tablet 325 mg PO QID PRN Pain (Sc shari 11/09/22 04/03/25 03/06/24 History Score 1-3) diabetic shoes with 3 inserts #1 ea 05/23/24 04/03/25 Unknown Rx Fast form #1 ea 06/15/24 04/03/25 Unkn own Rx atorvastatin 40 mg tablet 40 mg PO DAILY 90 days #90 t abs 02/20/25 04/03/25 Unknown Rx gabapentin 800 mg tablet 800 mg PO TID 30 days #90 ta bs 02/20/25 04/03/25 Unknown Rx hydrochlorothiazide 25 mg tablet 25 mg PO DAILY 90 day s #90 tabs 02/20/25 04/03/25 Unknown Rx losartan 50 mg tablet 50 mg PO BID 90 days #180 ta bs 02/20/25 04/03/25 Unknown Rx metformin 500 mg tablet 500 mg PO DAILY 90 days #90 tabs 02/20/25 04/03/25 Unknown Rx Diabetic Shoes with 3 pairs of #1 ea 02/23/25 04/03/25 Unknown Rx inserts escitalopram oxalate 10 mg tablet 10 mg PO DAILY #30 t abs 03/09/25 04/03/25 Unknown Rx quetiapine 150 mg tablet 150 mg PO BEDTIME #30 tabs 0 03/09/25 04/03/25 Unknown Rx tizanidine 4 mg tablet 8 mg (2 x 4 mg) PO BID PRN m uscle 03/19/25 04/03/25 Unknown Rx spasticity #120 tabs amitriptyline 25 mg tablet 25 mg PO BEDTIME #30 tabs 0 04/03/25 04/03/25 Unknown Rx buspirone 5 mg tablet 5 mg PO BID #60 tabs 5 04/03/25 Unknown Rx Allergies Allergy/AdvReac Type Severity Reaction Status Date / Time cariprazine (From Vraylar) Allergy ADR-Shakine Verified 04/03/25 11:34 ss zolpidem (From Ambien) Allergy ADR-Confusi Verified 04/03/25 11:34 on metoprolol AdvReac Severe heart block Verified 04/03/25 11:34 PFSH Acute 2 PFSH: Medical History (Updated 04/10/25 @ 02:52 by Esau Nuñez MD) Psychiatric care Chronic back pain Fibromyalgia Family history of ischemic heart disease and other diseases of the circulatory system Mixed hyperlipidemia Type 2 diabetes mellitus with diabetic polyneuropathy, without long-term current use of insulin Irritable bowel syndrome with diarrhea Primary hypertension Family history of kidney cancer Bilateral renal cysts Surgical History Status post total left knee replacement using cement Surgery: Left total knee arthroplasty using cement. Surgeon: Dr. Vanessa Garcia MD. Date of surgery: August 2018. History of hysterectomy History of rotator cuff surgery History of cholecystectomy History of back surgery History of knee replacement History of cervical spinal surgery Family History Father , AT 88 Heart attack Diabetes Mother , AT AGE 85 Heart attack Diabetes Sister Heart attack Social History Smoking and tobacco/nicotine status: former use of tobacco/nicotine (Quit 2012) Alcohol intake: never Substance/Drug Use: never Marital status: Current occupational status: retired and disabled Vitals/I&O/Wt Last Vital Signs Temp 96.6 F L 04/09/25 22:34 Pulse 96 04/10/25 01:10 Resp 24 H 04/10/25 01:10 BP 124/65 04/10/25 01:10 Pulse Ox 95 04/10/25 01:10 O2 Del Method Room Air 04/10/25 00:15 04/09/25 04/09/25 04/10/25 14:59 22:59 06:59 Intake Total 1641 / 1641 Output Total 500 / 500 Balance 1141 / 1141 Weight last 48 hrs Weight 69.49 kg Physical Exam 2 Narrative: General: Alert and oriented, lying comfortably without any distress, looks mildly hydrated HEENT: Normocephalic, atraumatic, grossly unremarkable exam Cardio: normal rate rhythm, normal S1-S2 without any murmurs, rubs, or gallops and JVD normal Respiratory: normal vascular breathing on auscultation without any wheezes, stridor, rhonchi GI: Abdomen soft, nontender, nondistended, normoactive bowel sounds present all 4 quadrants, Neuro: intact cranial nerves motor and sensory and cerebellar/coordination function without any focal neurological deficit Behavior: Appropriate and cooperative Extremities: Mild trace edema Skin: grossly unremarkable exam Urinary Catheter Management: Archibald: Cath Placed During This Visit: yes Urinary Catheter Date of Insertion: 04/09/25 Urinary Catheter Time of Insertion: 22:57 Data 04/09/25 22:51 04/09/25 22:51 Micro: Microbiology 04/09/25 23:23 Blood Culture - Preliminary Blood SPECIMEN COLLECTED 04/09/25 22:51 Blood Culture - Preliminary Blood SPECIMEN COLLECTED A&P Assessment and plan 1. Pre-syncope: Patient having longstanding diabetes although HbA1c is controlled Possible element of dysautonomia could be there. OT PT evaluation and further gait balance assessment Adequate hydration Ringer lactate 100 mL/h for 10 hours Echo and carotid duplex TSH normal in 2. Hypophosphatemia: Phosphate replacement provided with Phospha neutra 250 twice daily for 3 days and further to monitor 3. Hypomagnesemia: 2 g IV magnesium and to follow later 4. Hypokalemia: Patient received total 160 mEq of replacement To follow in the morning potassium levels 5. Acute hypotension: Hold antihypertensive at the moment. Adequate fluids to continue 6. Diabetic polyneuropathy associated with type 2 diabetes mellitus: Patient recent HbA1c 6.4% Continue to monitor glucose 7. Fibromyalgia: Adequate analgesia provided To resume home medications after reconciliation 8. Gastroesophageal reflux disease without esophagitis: Famotidine 20 mg twice daily Anti-GERD measures 9. RAYO (generalized anxiety disorder): Home medication shows patient on escitalopram, amitriptyline, quetiapine and buspirone However needs reconciliation before resuming. Consider holding antipsychotic medications that are related to dizziness with risk of fall especially anticholinergic medications. 10. Postural instability: OT PT evaluation 11. Mixed hyperlipidemia: Patient taking atorvastatin 40 mg at home, medication to reconcile and to resume later PDMP PDMP Reviewed: Not Reviewed Attestations 2 Medical Necessity Statement*: Patient will need more than 2 midnight stay in the hospital for management of presyncope and electrolyte imbalance with further assessment of OT PT Time Spent in Patient Care: 16 - 35 minutes (>than 50% of time sp ent in counselling and/or direct pt care on unit) . Other Attestations: Patient condition has been discussed at length with the patient/family, I have independently reviewed the chart labs imaging/diagnostics/EKG. the goals of care and code status with the patient/family/NOK/legal brewery representative, and documented accordingly. The patient/family has been informed about the current condition and further plan of care. Agreed with the plan of care and understood without any language barrier. Every effort was made to ensure accuracy of scientific associate. Any obvious errors or omissions should be clarified with the author of the document. Coding Level of Care Code Acute Code for Chg Fwd Diagnoses Pre-syncope R55 Hypophosphatemia E83.39 Hypomagnesemia E83.42 Hypokalemia E87.6 Acute hypotension I95.9 Diabetic polyneuropathy associated with type 2 diabetes mellitus E11.42 Diabetes mellitus type: type 2 Diabetes mellitus complication detail: diabetic polyneuropathy Fibromyalgia M79.7 Gastroesophageal reflux disease without esophagitis K21.9 Esophagitis presence: without esophagitis RAYO (generalized anxiety disorder) F41.1 Postural instability R29.3 Mixed hyperlipidemia E78.2 Hyperlipidemia type: mixed hyperlipidemia
[2025-04-10] MEDS: heparin 5,000 unit/mL INJ 1 mL 5000 UNIT SUBCUT ×2 (02:21→14:17)
--- NOTE | 2025-04-10 02:57 | USCV_ITS ---
Selina Henning Age: 64 Gender: F : 1960 Exam Date: 04/10/2025 15:10 Ordering Phys: Esau Nuñez MD Technologist: [place] [facility] [place]: near sycope BP: 165 / 99 HR: 82 Rhythm: Sinus Technical Quality: Adequate MEASUREMENTS (Male / Female) Normal Values 2D ECHO LV Diastolic Diameter PLAX 3.6 cm 4.2 - 5.9 / 3.9 - 5.3 cm IVS Diastolic Thickness 1.4 cm 0.6 - 1.0 / 0.6 - 0.9 cm IVS Systolic Thickness 1.5 cm LVPW Diastolic Thickness 1.5 cm 0.6 - 1.0 / 0.6 - 0.9 cm LVPW Systolic Thickness 1.9 cm LVOT Diameter 1.9 cm LV Ejection Fraction 2D Teich 66.7 % LV Ejection Fraction MOD 4C 71.5 % LV Ejection Fraction MOD 2C 65.4 % LV Ejection Fraction 2C AL 65.2 % LA Diameter 3.6 cm RA Systolic Volume 4C AL 36.2 ml RA Systolic Volume 4C MOD 35.2 ml Aorta at Sinotubular Diameter 2.9 cm IVC Diameter 2.2 cm M-MODE LA Ao Ratio MM 1.0 AV Cusp Separation MM 2.0 cm DOPPLER AV Peak Velocity 143.0 cm/s LVOT Peak Velocity 89.0 cm/s AV Area Cont Eq vti 1.8 cm squared AV Area Cont Eq pk 1.7 cm squared MV Peak Velocity 127.0 cm/s MV Area PHT 5.8 cm squared TV Peak Velocity 162.5 cm/s TR Peak Velocity 205.0 cm/s TR Peak Gradient 16.8 mmHg TV Peak E Velocity 91.0 cm/s PV Peak Velocity 107.0 cm/s FINDINGS Left Ventricle Normal left ventricular size and systolic function, EF 60-65%. No regional wall motion abnormalities. Right Ventricle Normal right ventricular size and systolic function. Right Atrium Normal right atrial size. Left Atrium Normal left atrial size. IA Septum Gossly normal Mitral Valve Structurally normal mitral valve. Mild to moderate mitral regurgitation. Aortic Valve Structurally normal aortic valve. No significant stenosis or regurgitation Tricuspid Valve Insufficient TR jet to calculate RVSP Pulmonic Valve Not well visualized Pericardium Normal Aorta Normal in size IVC Appears to be normal CONCLUSIONS LV systolic function is normal with EF of 60-65% Mild to moderate mitral regurgitation Doe Jackson MD (Electronically Signed) Final Date: 14 April 2025 09:30 S
--- NOTE | 2025-04-10 02:58 | USCV_ITS ---
Selina Henning Age: 64 Gender: F : 1960 Exam Date: 04/10/2025 15:23 Ordering Phys: Esau Nuñez MD Technologist: [place] [facility] [place]: near syncope Risk Factors: Previous Vascular Surgery: Right Brachial BP: / Left Brachial BP: / Right Left Velocity (cm/s) Spectral Plaque Velocity (cm/s) Spectral Plaque Syst/Diast Broadening Syst/Diast Broadening 64.60/ 23.20 Prox CCA 84.40 / 24.20 81.50/ 31.00 Mid CCA 85.80 / 24.20 99.60/ 34.90 Distal CCA 71.50 / 22.80 96.60/ 29.00 Prox ICA 75.80 / 19.90 109.30/41.80 Mid ICA 117.30/ 32.80 104.30/37.60 Distal ICA 88.10 / 36.20 116.60 ECA 90.10 1.10 ICA/CCA 1.60 Antegrade Vertebral Antegrade 74.80/ 28.70 cm/s 52.60/ 16.90 cm/s Tri Subclavian Tri 77.20 56.00 FINDINGS Comparison:. 09/20/23 No significant elevation of systolic or diastolic velocities. Diffuse bilateral scattered calcified plaque and intimal thickening throughout the common carotid arteries and extending through the bifurcation. CONCLUSIONS Bilateral ICA stenosis less than 50%. Mild carotid atherosclerosis. Dr. Etelvina Hunltey DO (Electronically Signed) Final Date: 10 April 2025 15:47 S
[2025-04-10] MEDS: magnesium sulfate premix 2 GM/50 ML PIGGYBACK IV (03:53)
[2025-04-10 05:27] LABS: Hematocrit 28.9 % (36-47); Hemoglobin 9.20 g/dL (11.27-16.99); Mean Corpuscular HGB Conc 31.8 g/dL (30-55); Mean Corpuscular Hemoglobin 26.7 pg (27-33); Mean Corpuscular Volume 83.8 fl (85-98); Nucleated Red Blood Cells % 0 %; Platelet Count 370 10^3/cmm (157-399); Red Blood Count 3.45 10^6/uL (3.85-5.65); White Blood Count 8.34 10^3/uL (3.29-11.43)
[2025-04-10 05:50] LABS: Magnesium 2.5 mg/dL (1.7-2.3)
[2025-04-10 05:51] LABS: Troponin 5 6HR 8.57 ng/L (0-10); Troponin 5 6HR Delta 0.57 ng/L (0-12)
[2025-04-10 09:23] LABS: Alanine Aminotransferase 18 U/L (0-33); Albumin Level 3.6 g/dL (3.5-5.2); Alkaline Phosphatase 161 U/L (35-105); Anion Gap 15.4 (5-19); Aspartate Amino Transferase 16 U/L (0-32); Blood Urea Nitrogen 10 mg/dL (8-23); Calcium 8.5 mg/dL (8.5-10.5); Carbon Dioxide 23 mmol/L (22-29); Chloride 99 mmol/L (98-107); Creatinine Clr Calc Pharmacy 61.2405; Globulin 2.9 g/dL (1.3-4.6); Glucose 111 mg/dL (65-115); Osmolality Calculated 276 mOsm/kg (285-295); Potassium 4.4 mmol/L (3.5-5.1); Sodium 133 mmol/L (136-145); Total Protein 6.5 g/dL (6.6-8.7)
--- NOTE | 2025-04-10 10:21 | PC.CHAP ---
Pastoral Care Encounter/Spiritual Assessment Type of Contact [] Declined agronomy teacher visit [] Patient/Family/Request visit [] Outpatient visit [] Follow-up visit [] Physician referral [] Code/Alert [] Routine visit [] Staff referral [] Actively dying [] Patient sleeping [] Family support [] [] Out of room [] Palliative care [] [x] Receiving care in room [] Pre-surgical visit [] Trauma [] Long length of stay [] ICU visit [] Other: Relational/Emotional Strength [] Patient feels connected with others/family/visitors/staff [] Distress [] Loneliness/isolation [] Abandonment Spirituality of Patient [] Person of Melani [] Attends Religious of their Melani [] Believes in Prayer [] Reads Bible or Muslim materials [] There are Spiritual issues to be addressed Reports Analyst Interventions [] Prayer [] Active listening [] Non-anxious presence [] Spiritual/emotional support [] Crisis/trauma care [] Spiritual counseling [] Bereavement support [] Provided bereavement packet [] Provided Bible/devotional materials [] Provided toy/stuffed animal, coloring book to patient or family member [] Provided Communion [] Anointing/[place] [] Salvation [] Completed spiritual assessment [] Other: Impact on Illness or Injury [] Angry [] Fearful [] Anxious [] Often cries [] Exhaustion [] Unable to work [] Unable to attend confucianism [] Unable to walk/stand [] Unable to read [] Unable to drive [] Unable to eat/drink [] Unable to sleep [] Unable to be with family [] Patient intubated [] Other: Summary Time spent with patient
--- NOTE | 2025-04-10 12:10 | PM.MISC ---
Miscellaneous Note Purpose of Documentation: Overnight labs and H&P reviewed. No recurrence of syncopal symptoms while here. Patient reports 3 episodes of syncope at home. States that she was asleep, woke up to go to the bathroom, as soon as she changed positions to stand up, she passed out on the floor and needed to be picked up by her roommates. Upon arrival she was noted to be hypotensive with blood pressure 80/40. She reports some chronic diarrhea, however this has not increased in frequency recently. She reports 1 episode per day at maximum. No nausea or vomiting or other GI losses. Patient did not work outdoors, does not think she was dehydrated. She has been on lactated Ringer's since admission. Orthostatics were checked this morning. At rest blood pressure 171/96, dropped to 145/96 upon standing up. No significant change in heart rate, stayed stable between 89-90.not symptomatic at this time. Will discontinue IV fluids and closely monitor for recurrence of symptoms. Noted to be anemic Will need to closely monitor, hemoglobin at 9.2, 10.5 1-month ago. No known reported melena. Will check FOBT. If positive may need outpatient colonoscopy. Check iron vitamin B12 and folate panels. No arrhythmia noted on telemetry monitoring thus far. Pending echocardiogram and carotid Doppler for syncope evaluation
[2025-04-10 12:56] LABS: Ferritin 11 ng/mL (15-150); Iron 44 ug/dL (37-145); Total Iron Binding Capacity 328 mcg/dl; Unsaturated Iron Binding 284 ug/dL (112-347)
[2025-04-10 13:12] LABS: Vitamin B12 244 pg/mL (232-1245)
[2025-04-10] MEDS: HYDROcodone-acetaminophen 5-325 mg Tablet 1 TAB PO (15:56)
--- NOTE | 2025-04-10 16:27 | P.DS_ITS ---
Discharge Providers Date of Admission: 04/09/25 23:47 Date of Discharge: April 10, 2025 Attending Provider at Admission: Esau Nuñez MD Attending Provider at Discharge: Aundrea Gerber MD Primary Care Provider: Julian Dorman DO Diagnoses at Discharge Discharge Diagnosis 1. Pre-syncope: 2. Hypophosphatemia: 3. Hypomagnesemia: 4. Hypokalemia: 5. Acute hypotension: 6. Diabetic polyneuropathy associated with type 2 diabetes mellitus: 7. Fibromyalgia: 8. Gastroesophageal reflux disease without esophagitis: 9. RAYO (generalized anxiety disorder): 10. Postural instability: 11. Mixed hyperlipidemia: Reason for Visit Reason for Visit: Hypotension Hospital Course Hospital Course Please see H&P from overnight for details leading to admission. No recurrence of syncopal symptoms while here. Patient reports 3 episodes of syncope at home. States that she was asleep, woke up to go to the bathroom, as soon as she changed positions to stand up, she passed out on the floor and needed to be picked up by her roommates. Upon arrival she was noted to be hypotensive with blood pressure 80/40. She reports some chronic diarrhea, however this has not increased in frequency recently. She reports 1 episode per day at maximum. No nausea or vomiting or other GI losses. Patient did not work outdoors, does not think she was dehydrated. She received lactated Ringer's since admission. Orthostatics were checked this morning. At rest blood pressure 171/96, dropped to 145/96 upon standing up. No significant change in heart rate, stayed stable between 89-90.not symptomatic at this time. IVF were stopped and her symptoms did not recur Noted to be anemic Will need to closely monitor, hemoglobin at 9.2, 10.5 1-month ago. No known reported melena. ordered FOBT. Check iron vitamin B12 and folate panels. No arrhythmia noted on telemetry monitoring thus far. Pending echocardiogram and carotid Doppler for syncope evaluation- images taken this afternoon at 3:30pm and results are awaited. No recurrence of symptoms here in the hopsital Troponin series was unremarkable. Patient states that she feels much better this evening and wished to return home without waiting for results of pending tests. She will follow up with her PCP for further assessment Physical Exam Narrative: General: No acute distress, AO x3 HEENT: PERRLA, pupils bilaterally equal and reactive, pallors not present Chest: Normal vesicular breath sounds, no added sounds, equal good air entry bilaterally CVS: S1-S2 regular, no murmurs, no tachycardia, no gallops, no rubs Abdomen: Soft, nontender, no organomegaly, bowel sounds present Neuro: No focal deficits, no facial deformity, AO x3, power 5/5 in all limbs Urinary Catheter Management: Archibald: Cath Placed During This Visit: yes Reason for Continuing Indwelling Catheter: Accurate Measurement of Urinary Output in Critically Ill Patients Urinary Catheter Date of Insertion: 04/09/25 Urinary Catheter Time of Insertion: 22:57 Discharge Data Studies Completed and Pending Completed Studies During Hospitalization Category Date Time Status XR chest 1V portable [id number] Stat Exams 04/09/25 22:45 Completed CV carotid duplex BI* [id number] Routine Ultrasound 04/10/25 02:58 Completed Pending at discharge Category Date Time Status Blood Culture Stat Lab 04/09/25 23:23 Results CMP [Comprehensive Metabolic Panel] AM LABS Lab 04/11/25 04:00 Ordered Complete Blood Count w/Auto AM LABS Lab 04/11/25 04:00 Ordered Fecal Occult Blood [Immunochemical Fecal OCB] Routine Lab 04/10/25 12:13 Uncollected Urine Culture Stat Lab 04/09/25 22:50 Received CV. echo complete* [id number] Routine Ultrasound 04/10/25 02:57 Taken Radiology Impressions Chest X-Ray 04/09/25 22:45 IMPRESSION: No acute findings. Laboratory Results WBC 8.34 10^3/uL (3.29-11.43) 04/10/25 05:11 RBC 3.45 10^6/uL (3.85-5.65) L 04/10/25 05:11 Hgb 9.20 g/dL (11.27-16.99) L 04/10/25 05:11 Hct 28.9 % (36-47) L 04/10/25 05:11 MCV 83.8 fl (85-98) L 04/10/25 05:11 MCH 26.7 pg (27-33) L 04/10/25 05:11 MCHC 31.8 g/dL (30-55) 04/10/25 05:11 RDW 13.0 % (12.1-15.1) 04/10/25 05:11 Plt Count 370 10^3/cmm (157-399) 04/10/25 05:11 MPV 8.4 fL (7.4-10.4) 04/10/25 05:11 Neut % (Auto) 61.0 % 04/10/25 05:11 Lymph % (Auto) 28.9 % 04/10/25 05:11 [place] % (Auto) 7.1 % 04/10/25 05:11 Eos % (Auto) 1.4 % 04/10/25 05:11 Baso % (Auto) 1.2 % 04/10/25 05:11 Neut # (Auto) 5.09 10^3/uL (1.8-7.7) 04/10/25 05:11 Lymph # (Auto) 2.4 10^3/uL (0.8-4.8) 04/10/25 05:11 [place] # (Auto) 0.6 10^3/uL (0.2-0.9) 04/10/25 05:11 Eos # (Auto) 0.1 10^3/uL (0.0-0.8) 04/10/25 05:11 Baso # (Auto) 0.1 10^3/uL (0.0-0.1) 04/10/25 05:11 Nucleated RBC % (auto) 0 % 04/10/25 05:11 Nucleated RBCs # 0.0 /100WBC 04/10/25 05:11 Sodium 133 mmol/L (136-145) L 04/10/25 05:11 Potassium 4.4 mmol/L (3.5-5.1) 04/10/25 05:11 Chloride 99 mmol/L (98-107) 04/10/25 05:11 Carbon Dioxide 23 mmol/L (22-29) 04/10/25 05:11 Anion Gap 15.4 (5-19) 04/10/25 05:11 BUN 10 mg/dL (8-23) 04/10/25 05:11 Creatinine 0.9 mg/dL (0.5-0.9) 04/10/25 05:11 GFR Calculation 62.8 mL/min (90-130) L 04/10/25 05:11 Glucose 111 mg/dL (65-115) 04/10/25 05:11 Calculated Osmolality 276 mOsm/kg (285-295) L 04/10/25 05:11 Lactic Acid 2.1 mmol/L (0.5-2.2) 04/09/25 22:51 Lactic Acid (Sepsis) 0.9 mmol/L (0.5-2.2) 04/10/25 00:50 Calcium 8.5 mg/dL (8.5-10.5) 04/10/25 05:11 Phosphorus 3.3 mg/dL (2.5-4.5) 04/10/25 05:11 Magnesium 2.5 mg/dL (1.7-2.3) H 04/10/25 05:11 Iron 44 ug/dL (37-145) 04/10/25 05:11 TIBC 328 mcg/dl 04/10/25 05:11 % Saturation 13.4 % (20-50) L 04/10/25 05:11 Unsat Iron Binding 284 ug/dL (112-347) 04/10/25 05:11 Ferritin 11 ng/mL (15-150) L 04/10/25 05:11 Total Bilirubin 0.2 mg/dL (0.15-1.2) 04/10/25 05:11 AST 16 U/L (0-32) 04/10/25 05:11 ALT 18 U/L (0-33) 04/10/25 05:11 Alkaline Phosphatase 161 U/L (35-105) H 04/10/25 05:11 Troponin T Baseline 8 ng/L (0-10) 04/09/25 22:51 Troponin T 120 Minute 7.70 ng/L (0-10) 04/10/25 00:50 Delta Troponin T -0.30 ABS# (0-10) L 04/10/25 00:50 Troponin T Hi Sens 6Hr 8.57 ng/L (0-10) 04/10/25 05:11 Troponin T Hi Sens 6Hr Delta 0.57 ng/L (0-12) 04/10/25 05:11 Total Protein 6.5 g/dL (6.6-8.7) L 04/10/25 05:11 Albumin 3.6 g/dL (3.5-5.2) 04/10/25 05:11 Globulin 2.9 g/dL (1.3-4.6) 04/10/25 05:11 Vitamin B12 244 pg/mL (232-1245) 04/10/25 05:11 Folate 8.1 ng/mL (4.8-37.3) 04/10/25 05:11 Procalcitonin 0.05 ng/mL (0-0.5) 04/09/25 22:51 Urine Color Yellow (Yellow) 04/09/25 22:50 Urine Appearance Clear (CLEAR) 04/09/25 22:50 Urine pH 7.0 (5-7) 04/09/25 22:50 Ur Specific [place] 1.015 (1.005-1.030) 04/09/25 22:50 Urine Protein 1+ (Negative) A 04/09/25 22:50 Urine Glucose (UA) Negative (Normal) 04/09/25 22:50 Urine Ketones Negative (Negative) 04/09/25 22:50 Urine Blood Negative (Negative) 04/09/25 22:50 Urine Nitrate Negative (Negative) 04/09/25 22:50 Urine Bilirubin Negative (Negative) 04/09/25 22:50 Urine Urobilinogen 1.0 mg/dL (Negative) 04/09/25 22:50 Ur Leukocyte Esterase Negative (Negative) 04/09/25 22:50 Urine RBC None /hpf (0-2) 04/09/25 22:50 Urine WBC None /hpf (0-5) 04/09/25 22:50 Ur Squamous Epith Cells 0-4 /hpf (0-5) H 04/09/25 22:50 Amorphous Sediment Not Reportable 04/09/25 22:50 Hyaline Casts 5-10 /lpf H 04/09/25 22:50 Urine Mucus 1+ /hpf 04/09/25 22:50 Vitals Last Vital Signs Temp 97.6 F 04/10/25 07:39 Pulse 94 04/10/25 14:00 Resp 16 04/10/25 12:00 BP 145/96 04/10/25 12:00 Pulse Ox 97 04/10/25 12:00 O2 Del Method Room Air 04/10/25 04:00 Discharge Plan Discharge Patient Disposition: Home Condition: Stable Prescriptions: Continued acetaminophen 325 mg tablet 325 mg PO QID PRN (Reason: Pain (Scale Score 1-3)) (DME) Fast form See Rx Instructions .Route .MEDSUPPLY Qty: 1 0RF Rx Instructions: As directed atorvastatin 40 mg tablet 40 mg PO DAILY 90 Days Qty: 90 3RF hydrochlorothiazide 25 mg tablet 25 mg PO DAILY 90 Days Qty: 90 3RF metformin 500 mg tablet 500 mg PO DAILY 90 Days Qty: 90 3RF gabapentin 800 mg tablet 800 mg PO TID 30 Days Qty: 90 4RF escitalopram oxalate 10 mg tablet 10 mg PO DAILY Qty: 30 3RF quetiapine 150 mg tablet 150 mg PO BEDTIME Qty: 30 3RF amitriptyline 25 mg tablet 25 mg PO BEDTIME Qty: 30 3RF buspirone 5 mg tablet 5 mg PO BID Qty: 60 3RF (DME) diabetic shoes with 3 inserts See Rx Instructions .Route .MEDSUPPLY Qty: 1 0RF Rx Instructions: As directed to the [facility] (DME) Diabetic Shoes with 3 pairs of inserts See Rx Instructions .ROUTE .MEDSUPPLY Qty: 1 0RF Rx Instructions: As directed by [facility] tizanidine 4 mg tablet 8 mg PO BID PRN (Reason: muscle spasticity) Qty: 120 4RF Changed losartan 50 mg tablet 50 mg PO DAILY 90 Days Qty: 180 3RF Discharge Order = DC NOW: Discharge Order (Routine); Ordered 04/10/25 Ordered By: Aundrea Gerber Referrals: Shannan Deluna MD [Physician, Family Practice] - 04/13/25 11:15 am Referral Note: This appointment is scheduled with Giuliana King. As Dr. Albright is out of office. Thank you! Discharge Diet: Usual diet Discharge Activity: Increase activity as tolerated Patient Instructions: Hypotension (DC), Near Syncope (DC), Opioid Safety, Patient Portal & Gwendolyn Instructions Discharge Attestations Time Spent in Discharge Care*: greater than 30 min Quality Metrics Clinical Quality Measures [ No reported AMI, CVA or VTE this stay] Coding Level of Care Code Acute Code for Chg Fwd Diagnoses Pre-syncope R55 Hypophosphatemia E83.39 Hypomagnesemia E83.42 Hypokalemia E87.6 Acute hypotension I95.9 Diabetic polyneuropathy associated with type 2 diabetes mellitus E11.42 Diabetes mellitus type: type 2 Diabetes mellitus complication detail: diabetic polyneuropathy Fibromyalgia M79.7 Gastroesophageal reflux disease without esophagitis K21.9 Esophagitis presence: without esophagitis RAYO (generalized anxiety disorder) F41.1 Postural instability R29.3 Mixed hyperlipidemia E78.2 Hyperlipidemia type: mixed hyperlipidemia
--- NOTE | 2025-04-10 17:52 | PC.NURSE ---
Patient discharged to home. Instruction provided regarding follow up needs, medication changes and bp. Patient verbalized complete understanding. Patient taken by wheelchair to private vehicle. Patient denies pain or needs. No distress observed.
== END 2025-04-10 17:40 | disposition home or self-care (01) | DRG 641 ==
LOC: ER 04-10 00:12 → ER IP 04-10 00:15 → CSU 04-10 03:39
PROVIDERS: Admitting Provider Student in an Organized Health Care Education/Training Program; Emergency Provider Student in an Organized Health Care Education/Training Program; PCP Family Medicine; Visit Provider Student in an Organized Health Care Education/Training Program
DX: E87.6 Hypokalemia (principal); Q61.02 Congenital multiple renal cysts; E83.39 Other disorders of phosphorus metabolism; E83.42 Hypomagnesemia; I95.9 Hypotension, unspecified; E11.42 Type 2 diabetes mellitus with diabetic polyneuropathy; M79.7 Fibromyalgia; K21.9 Gastro-esophageal reflux disease without esophagitis; F41.1 Generalized anxiety disorder; E78.2 Mixed hyperlipidemia; K58.0 Irritable bowel syndrome with diarrhea; I10 Essential (primary) hypertension; M25.512 Pain in left shoulder; G89.29 Other chronic pain; D64.9 Anemia, unspecified; Z96.652 Presence of left artificial knee joint; Z79.84 Long term (current) use of oral hypoglycemic drugs; Z98.1 Arthrodesis status; Z82.49 Family history of ischemic heart disease and other diseases of the circulatory system
CPT/HCPCS: 36415; 51701; 51702; 71045; 80053; 81001; 82607; 82728; 82746; 83540; 83550; 83605; 83735; 84100; 84145; 84484; 85025; 87040; 87086; 93005; 93306; 93880; 96365; 96372; 97161; 97165; 99285; J1644; J3475; J3480; J7030; J7120; J9999

== ENCOUNTER → 2025-04-13 11:04 | Outpatient (BNVA) | payer OTHER, MEDICAID, SELFPAY | PROVIDERS: PCP Family Medicine; Visit Provider Nurse Practitioner | DX: N39.0 Urinary tract infection, site not specified (principal) | CPT/HCPCS: 81000; 87077; 87086; 87184 ==

== ENCOUNTER → 2025-04-19 10:11 | Outpatient (BNVA) | payer OTHER, MEDICAID, SELFPAY | PROVIDERS: PCP Family Medicine; Visit Provider Nurse Practitioner | DX: I10 Essential (primary) hypertension (principal); N39.0 Urinary tract infection, site not specified | CPT/HCPCS: 80053; 81000; 87086 ==

== ENCOUNTER → 2025-04-25 10:33 | Outpatient (BNVA) | payer OTHER, MEDICAID, SELFPAY | PROVIDERS: PCP Family Medicine; Visit Provider Podiatrist Foot & Ankle Surgery | DX: E11.42 Type 2 diabetes mellitus with diabetic polyneuropathy (principal); L60.3 Nail dystrophy; I73.9 Peripheral vascular disease, unspecified; E11.8 Type 2 diabetes mellitus with unspecified complications; G62.9 Polyneuropathy, unspecified; Z79.84 Long term (current) use of oral hypoglycemic drugs | CPT/HCPCS: 11721 ==

== ENCOUNTER → 2025-05-03 10:03 | Outpatient (BNVA) | payer OTHER, MEDICAID, SELFPAY | PROVIDERS: PCP Family Medicine; Visit Provider Nurse Practitioner | DX: N39.0 Urinary tract infection, site not specified (principal) | CPT/HCPCS: 81000; 87086 ==

== ENCOUNTER → 2025-05-21 11:26 | Outpatient (BNVA) | payer OTHER, MEDICAID, SELFPAY | PROVIDERS: PCP Family Medicine; Visit Provider Family Medicine | DX: N39.0 Urinary tract infection, site not specified (principal); R30.0 Dysuria | CPT/HCPCS: 81000; 87086 ==

== ENCOUNTER 2025-05-24 22:48 | Inpatient (IN) | payer MEDICARE, MEDICAID, SELFPAY ==
--- OUTSIDE RECORDS SUMMARY | 2024-05-06 03:00 | XMS_ITS ---
Author Organization [facility] Address [address] [place] [address] Care Team Providers Care Senior Policy Analyst Name Role Phone Julian Dorman DO Primary Care Provider Unavailab Duane Pinto Unavailable [phone] Migration, Provider Unavailable Unavailable REASON FOR VISIT EMR-Georgi Social History Sex Assigned At : Social History Observation Description Sex Assigned At Female Encounters Encounter Location Date Provider Diagnosis Migrated_Facility 0 0 05/06/2024 Provider Migration Plan Of Treatment Next Appt Details Provider Name:Duane Mcpherson, 05/30/2025 10:40:00 AM, [address] [place], [address], Progress Notes * Selina COSTA LDOB:[birth year] (64 yo F)Acc No.[id number]:05/06/2024 Patient: Jose Alfredo Selina GONZALES :1960 A ge:63 Y S ex:Female Address:[address] [place] [id number] Subjective: * Chief Complaints: * E MR-Georgi * * Date:
--- OUTSIDE RECORDS SUMMARY | 2024-05-07 03:00 | XMS_ITS ---
Author Organization [facility] Address [address] [place] [address] Care Team Providers Care Marriage Counselor Minister Name Role Phone Julian Dorman DO Primary Care Provider Unavailab Duane Pinto Unavailable [phone] Migration, Provider Unavailable Unavailable REASON FOR VISIT EMR-Georgi Social History Sex Assigned At : Social History Observation Description Sex Assigned At Female Encounters Encounter Location Date Provider Diagnosis Migrated_Facility 0 0 05/07/2024 Provider Migration Plan Of Treatment Next Appt Details Provider Name:Duane Mcpherson, 05/30/2025 10:40:00 AM, [address] [place], [address], Progress Notes * Selina COSTA LDOB:[birth year] (64 yo F)Acc No.[id number]:05/07/2024 Patient: Jose Alfredo Selina GONZALES :1960 A ge:63 Y S ex:Female Address:[address] [place] [address] Subjective: * Chief Complaints: * E MR-Georgi * * Date:
--- OUTSIDE RECORDS SUMMARY | 2025-05-23 02:28 | XMS_ITS ---
Author Organization [facility] Address [address] [place] [address] Care Team Providers Care Change Over Name Role Phone Dandy ROYALJulian Primary Care Provider Michelle PintoDuane Tavo [phone] Medications Medication SIG (Take, Route, Frequency, Duration) Notes Start Date End Date Status HYDROcodone-Acetami nophen 7.5-325 MG Tablet 1 tablet as needed Orally every 12 hours; Duration: 6 days As needed Not to exceed 2 per day Fill 05/25/25 bridge until next appointment 05/24/2025 05/31/2025 Active Social History Sex Assigned At : Social History Observation Description Sex Assigned At Female Encounters Encounter Location Date Provider Diagnosis [facility] [address] [place] [address] 05/23/2025 Duane Mcpherson Lumbar post-laminectomy syndrome M96.1 Assessments Encounter Date Diagnosis (ICD Code) Assessment Notes Treatment Notes Treatment Clinical Notes Section Notes 05/23/2025 Lumbar post-laminectom y syndrome (ICD-10 - M96.1) Plan Of Treatment Medication Medication Name Sig Start Date Stop Date Notes HYDROcodone-Acetaminop hen 7.5-325 MG Tablet 1 tablet as needed Orally every 12 hours; Duration: 6 days 05/24/2025 05/31/2025 Fill 05/25/25 bridge until next appointment Next Appt Details Provider Name:Duane Mcpherson, 05/30/2025 10:40:00 AM, [address] [place], [address], Progress Notes * Selina COSTA LDOB:[birth year] (64 yo F)Acc No.[id number]:05/23/2025 Patient: Selina CLEANING :1960 A ge:64 Y S ex:Female Address:[address] [place] [address] * Refills Refill HYDROcodone-Acetaminophen Tablet, 7.5-325 MG, Orally, 12 Tablet, 1 tablet as needed, every 12 hours, As needed Not to exceed 2 per day, 6 days, Refills=0 Assessment: * Assessment: 1. L umbar post-laminectomy syndrome - M96.1 Plan: * Treatment: * true * Date: Generated for Homer patel/Rashmi/Adriaitting on: 07/24/2024 10:52 PM VINYL HANGER
--- OUTSIDE RECORDS SUMMARY | 2025-05-24 22:53 | XMS_ITS | Encounter Summary ---
Author Organization [facility] Address [address] [place] [address] Care Team Providers Care Store Sales Consultant Name Role Phone Meet Voss MD Primary Care Provider [phone] Encounter Details Date Type Department Care Team (Latest Contact Info) Description 10/13/2000 Outpatient [facility] [address] [address] Talon Palomino MD [address] [place] [address] Other affections of shoulder region, not elsewhere classified (Primary Dx); Unspecified endocrine disorder Social History Tobacco Use Types Packs/Day Years Used Date Smoking Tobacco: Never Assessed Comments Unknown Sex and Gender Information Value Date Recorded Sex Assigned at Not on file Legal Sex Female 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
--- OUTSIDE RECORDS SUMMARY | 2025-05-24 22:53 | XMS_ITS | Clinical Summary ---
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 Natanael Gupta MD medq D: [id number] V: [id number] cc: Jim Voss MD Natanael Gupta MD GI PROCEDURE ORDERABLES Final Result from Last 3 Months or Most Recently Relevant to Health Maintenance Insurance [facility] [place] Member Subscriber Plan / Payer (Ef fective 2017-Present) Name:Costa, Selina Homero Relation to Subscriber:Self Name:Cosat, Selina Homero Payer ID:[id number] Group ID:Not on file Type:Medicaid Address: [address] DUAL COMPLETE MCR PPO D-SNP Advance Directives For more information, please contact: [phone] * Full Code (Latest Code Status on File) Date Activated Date Inactivated Comments 01/13/2011 2:54 PM 01/13/2011 6:38 PM * Full Code Date Activated Date Inactivated Comments 10/21/2010 12:48 PM 10/21/2010 4:30 PM Care Teams Metal Wire Technician Relationship Specialty Start Date End Date Meet Voss MD [address] [place] [address] PCP - General Family Practice 10/16/10
--- OUTSIDE RECORDS SUMMARY | 2025-05-24 22:53 | XMS_ITS | Clinical Summary ---
Author Organization [facility] Address [address] [facility] Attn: [place] [address] Care Team Providers Care State Farm Agent Team Member Name Role Phone Meet Voss MD Primary Care Provider [phone] Allergies Active Allergy Reactions Criticality Noted Date [...] Encounters Date Type Department Care Team Description 05/02/2025 External Device Data [facility] Provider, Abstract 05/01/2025 External Device Data [facility] Provider, Abstract 04/09/2025 12:20 AM CDT - 04/09/2025 11:59 PM CDT Hospital Encounter [facility] Emergency Medical Services [facility] [address] [place] [address] Ambulance, [facility] Discharge Disposition: Short term general hospital 03/27/2025 External Device Data [facility] Provider, Abstract 03/02/2025 Chart Note [facility] [address] [place] [address] Dolores Felix LEVARTRACY Follow Up from Last 3 Months Social History Tobacco Use Types Packs/Day Years Used Date Smoking Tobacco: Former Cigarettes Smokeless Tobacco: Never Tobacco Cessation:Counseling Given: Not Answered Alcohol Use Standard Drinks/Week Comments No 0 (1 standard drink = 0.6 oz pur e alcohol) Comments Unknown Sex and Gender Information Value Date Recorded Sex Assigned at Not on file Legal Sex Female 9:15 AM MANDOLIN REPAIRER Gender Identity Not on file Sexual Orientation [...] Gupta MD at 01/14/2011 7:54 AM Author: Natanael Gupta MD Service: -- Author Type: Physician Filed: 01/14/2011 7:54 AM Date of Service: 01/14/2011 6:51 AM Status:Signed Reclamation Furnace Operator: Natanael Gupta MD (Physician) Procedure Orders 1. ENDOSCOPY, COLON, DIAGNOSTIC [[id number]] ordered by at 01/06/11 [address] [place], [place] ENDOSCOPY NAME SELINA COSTA [facility] # [id number] 1960 AGE 50Y PHYSICIAN Natanael Gupta MD [...] the biopsies. Natanael Gupta MD medq D: [id number] V: [id number] cc: Jim Voss MD Natanael Gupta MD GI PROCEDURE ORDERABLES Final Result Performing Organization Address [facility] Phone [facility] from Last 3 Months or Most Recently Relevant to Health Maintenance Insurance MEDICAID [place] Care Teams State Farm Agent Team Member Relationship Specialty Start Date End Date Meet Voss MD [address] [place] [address] PCP - General Family Practice 10/16/10
--- OUTSIDE RECORDS SUMMARY | 2025-05-24 22:53 | XMS_ITS | Encounter Summary ---
Author Organization [facility] Address [address] [place] [address] Care Team Providers Care Publication Editor Name Role Phone Meet Voss MD Primary Care Provider [phone] Encounter Details Date Type Department Care Team (Latest Contact Info) Description 09/30/[address] [address] Talon Palomino MD [address] [place] [address] Sprain and strain of unspecified site of shoulder and upper arm (Primary Dx); Sprain rotator cuff Social History Tobacco Use Types Packs/Day Years Used Date Smoking Tobacco: Never Assessed Comments Unknown Sex and Gender Information Value Date Recorded Sex Assigned at Not on file Legal Sex Female 3:40 AM 

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
--- OUTSIDE RECORDS SUMMARY | 2025-05-24 22:53 | XMS_ITS | Encounter Summary ---
Author Organization [facility] Address [address] [place] [address] Care Team Providers Care Histological Illustrator Name Role Phone Meet Voss MD Primary Care Provider [phone] Reason for Visit * Reason Comments Follow Up Encounter Details Date Type Department Care Team (Late st Contact Info) Description 03/02/2025 Chart Note [facility] [address] [place] [phone] Dolores Felix, [facility] [address] [place], [place] [address] Follow Up Social History Tobacco Use Types Packs/Day Years Used Date Smoking Tobacco: Former Cigarettes Smokeless Tobacco: Never Alcohol Use Standard Drinks/Week Comments No 0 (1 standard drink = 0.6 oz pur e alcohol) Comments Unknown Sex and Gender Information Value Date Recorded Sex Assigned at Not on file Legal Sex Female 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
--- OUTSIDE RECORDS SUMMARY | 2025-05-24 22:53 | XMS_ITS | Encounter Summary ---
Author Organization [facility] Address [address] [place] [address] Care Team Providers Care Supervisor Building Maintenance Name Role Phone Meet Voss MD Primary Care Provider [phone] Encounter Details Date Type Department Care Team (Latest Contact Info) Description 09/03/2000 Outpatient [facility] Medicine[address] [phone] Ian Harvey MD [address] [phone] Pain in joint, shoulder region (Primary Dx) Social History Tobacco Use Types Packs/Day Years Used Date Smoking Tobacco: Never Assessed Comments Unknown Sex and Gender Information Value Date Recorded Sex Assigned at Not on file 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
--- OUTSIDE RECORDS SUMMARY | 2025-05-24 22:53 | XMS_ITS | Encounter Summary ---
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
--- OUTSIDE RECORDS SUMMARY | 2025-05-24 22:53 | XMS_ITS | Encounter Summary ---
Author Organization [facility] Address [address] [place] [address] Care Team Providers Care Dehydrator Tender Name Role Phone Meet Voss MD Primary Care Provider [phone] Encounter Details Date Type Department Care Team (Latest Contact Info) Description 09/13/2000 Outpatient [facility] Medicine[address] [address] Talon Palomino MD [address] [place] [phone] Symptomatic states associated with artificial menopause (Primary Dx); Tobacco use disorder; Unspecified endocrine disorder Social History Tobacco Use Types Packs/Day Years Used Date Smoking Tobacco: Never Assessed Comments Unknown Sex and Gender Information Value Date Recorded Sex Assigned at Not on file 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
--- OUTSIDE RECORDS SUMMARY | 2025-05-24 22:53 | XMS_ITS | Encounter Summary ---
Author Organization [facility] Address [address] [place] [address] Care Team Providers Care Med Specialist Name Role Phone Meet Voss MD Primary Care Provider Encounter Details Date Type Department Care Team (Latest Contact Info) Description 10/05/[address] 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
[2025-05-24 22:55] VITALS: BP 77/41; PULSE 63; RESP 14; TEMP 36.6; O2SAT 97; BMI 30.6
[2025-05-24 23:02] VITALS: BP 69/47; PULSE 65; RESP 15; TEMP 36.7; O2SAT 98
--- NOTE | 2025-05-24 23:34 | XRR_ITS ---
PROCEDURE INFORMATION: Exam: XR Chest Exam date and time: 05/24/2025 11:39 PM Age: 64 years old Clinical indication: Other: Hypotension TECHNIQUE: Imaging protocol: Radiologic exam of the chest. Views: 1 view. COMPARISON: CR (CHEST, ) 04/09/2025 10:51 PM FINDINGS: Lungs: Unremarkable. No consolidation. Pleural spaces: Trace left pleural effusion. Heart/Mediastinum: Unremarkable. No cardiomegaly. Bones/joints: ACDF. XR/XR chest 1V portable [id number] IMPRESSION: Trace left pleural effusion.
--- NOTE | 2025-05-24 23:35 | ECG_ITS ---
[facility] Test Date: 2025-05-24 Pat Name: Selina Henning Department: Room: Gender: Female Injection Mold Technician: : 1960 Requested By: Aggie Rocha Order Number: [id number] Liza MD: Doe Jackson M.D. Measurements Intervals [place] Rate: 64 P: 66 KS: 181 QRS: 23 QRSD: 80 T: 52 QT: 465 QTc: 482 Interpretive Statements SINUS RHYTHM PROLONGED QT INTERVAL Compared to ECG 04/09/2025 22:33:45 Prolonged QT interval now present T-wave abnormality no longer present Electronically Signed On 05-25-2025 13:05:40 LOOM REPAIRER by Doe Jackson M.D. [email or web address]
--- NOTE | 2025-05-24 23:35 | ED_ITS ---
HPI - Recheck/Abnormal Lab/Rx 2 General: Chief Complaint: Recheck/Abnormal Lab/Rx Stated Complaint: HTN History of Present Illness: Patient is a a 64-year-old female with a history of high blood pressure, type 2 diabetes, hyperlipidemia, chronic back pain, fibromyalgia presents for chief complaint of hypotension. Patient states that her low blood pressure usually does not hit till 10:00 in the morning. Of note, patient takes tenacity in, gabapentin, hydrocodone before bed. Additionally, she has had a new blood pressure medication added to her regimen approximately 1 week ago. This is in addition to losartan. Patient denies fever. She states she has a mild headache but that has now improved after fluids. No upper respiratory symptoms. No chest pain, shortness of breath, palpitations or syncope. No abdominal pain, nausea, vomiting, diarrhea or dysuria. Patient states she continues to eat and drink normally. No hemoptysis, lower extremity asymmetry. Patient denies history of congestive heart failure. Related Data Home Medications ?Medication ?Instructions ?Recorded ?Confirmed acetaminophen 325 mg tablet 325 mg PO QID PRN Pain (Sc shari 11/09/22 05/21/25 Score 1-3) hydrocodone 7.5 mg-acetaminophen 1 tab PO BID PRN 04/1205/21/25 325 mg tablet Previous Rx's ?Medication ?Instructions ?Recorded diabetic shoes with 3 inserts #1 ea 05/23/24 Fast form #1 ea 06/15/24 atorvastatin 40 mg tablet 40 mg PO DAILY 90 days #90 t abs 02/20/25 gabapentin 800 mg tablet 800 mg PO TID 30 days #90 ta bs 02/20/25 metformin 500 mg tablet 500 mg PO DAILY 90 days #90 tabs 02/20/25 Diabetic Shoes with 3 pairs of #1 ea 02/23/25 inserts quetiapine 150 mg tablet 150 mg PO BEDTIME #30 tabs 0 03/09/25 tizanidine 4 mg tablet 8 mg (2 x 4 mg) PO BID PRN m uscle 03/19/25 spasticity #120 tabs amitriptyline 25 mg tablet 25 mg PO BEDTIME #30 tabs 0 04/03/25 buspirone 10 mg tablet 10 mg PO BID #60 tabs escitalopram oxalate 20 mg tablet 20 mg PO DAILY #30 t abs 10/24/25 amlodipine 5 mg tablet 5 mg PO DAILY 30 days #30 ta bs 05/21/25 chlorthalidone 50 mg tablet 50 mg PO QAM 30 days #30 t abs 05/21/25 losartan 50 mg tablet 50 mg PO BID 30 days #60 tab s 05/21/25 meloxicam 15 mg tablet 15 mg PO DAILY PRN pain #30 tabs 05/21/25 Allergies Allergy/AdvReac Type Severity Reaction Status Date / Time cariprazine (From Vraylar) Allergy ADR-Shakine Verified 05/21/25 07:11 ss zolpidem (From Ambien) Allergy ADR-Confusi Verified 05/21/25 07:11 on metoprolol AdvReac Severe heart block Verified 05/21/25 07:11 PFSH ED 2 PFSH: Medical History (Updated 05/25/25 @ 00:41 by Aggie Rocha MD) Psychiatric care Chronic back pain Fibromyalgia Family history of ischemic heart disease and other diseases of the circulatory system Mixed hyperlipidemia Type 2 diabetes mellitus with diabetic polyneuropathy, without long-term current use of insulin Irritable bowel syndrome with diarrhea Primary hypertension Family history of kidney cancer Bilateral renal cysts Surgical History Status post total left knee replacement using cement Surgery: Left total knee arthroplasty using cement. Surgeon: Dr. Vanessa Garcia MD. Date of surgery: August 2018. History of hysterectomy History of rotator cuff surgery History of cholecystectomy History of back surgery History of knee replacement History of cervical spinal surgery Family History Father , AT 88 Heart attack Diabetes Mother , AT AGE 85 Heart attack Diabetes Sister Heart attack Social History Smoking and tobacco/nicotine status: former use of tobacco/nicotine Alcohol intake: never Substance/Drug Use: never Marital status: Current occupational status: retired and disabled Physical Exam 2 Narrative: EXAM NARRATIVE: Vital signs were reviewed. Patient is alert and oriented. Patient is breathing comfortably, no increased WOB or accessory muscle use. SpO2 is above 95% on RA. Patient has clear lungs b/l, no rhonchi, wheezing or crackles. No tachycardia. +Hypotension. Abdomen is soft, nondistended and nontender. Patient is moving all extremities, no deformity or gross injury. No lower extremity edema or asymmetry. Course 2 Vital Signs: Vital signs: Vital Signs Temperature 98.0 F 05/24/25 23:02 Pulse Rate 63 05/25/25 00:24 Respiratory Rate 15 05/25/25 00:24 Blood Pressure 97/58 05/25/25 00:24 Pulse Oximetry 97 05/25/25 00:24 Oxygen Delivery Me thod Room Air 05/24/25 23:02 MDM - Recheck/Abnormal Lab/Rx Medical Decision Making 64-year-old female presents with a chief complaint of hypotension. Differential diagnose includes but is limited to, excessive blood pressure medication, polypharmacy, underlying illness such as urinary tract infection, pulmonary infection, sepsis, ACS/cardiogenic shock, PE, dehydration, other. On exam, patient is hypotensive but is otherwise doing well. Her only complaint is fatigue. Patient was evaluate CBC, CMP, lactic acid, procalcitonin, troponin, UA, urine culture, blood culture, COVID and flu screen, EKG. Patient has a normal white blood cell count, lactic acid and procalcitonin. Patient is anemic. This is appox 1.5 point drop from previous, though she denies bleeding. Her creatinine is mildly elevated but she has normal anion gap. There are no electrolyte abnormalities. I suspect patient's presentation is secondary to polypharmacy and your blood pressure medication. Patient will be admitted to ICU for blood pressure monitoring and trending of H/H. She will benefit from further workup for anemia. Lab Data 05/24/25 23:10 05/24/25 23:10 Radiology Impressions Chest X-Ray 05/24/25 23:34 IMPRESSION: Trace left pleural effusion. Laboratory Results WBC 7.11 10^3/uL (3.29-11.43) 05/24/25 23:10 RBC 2.85 10^6/uL (3.85-5.65) L 05/24/25 23:10 Hgb 7.70 g/dL (11.27-16.99) L 05/24/25 23:10 Hct 24.0 % (36-47) L 05/24/25 23:10 MCV 84.2 fl (85-98) L 05/24/25 23:10 MCH 27.0 pg (27-33) 05/24/25 23:10 MCHC 32.1 g/dL (30-55) 05/24/25 23:10 RDW 13.7 % (12.1-15.1) 05/24/25 23:10 Plt Count 302 10^3/cmm (157-399) 05/24/25 23:10 MPV 9.0 fL (7.4-10.4) 05/24/25 23:10 Neut % (Auto) 56.1 % 05/24/25 23:10 Lymph % (Auto) 28.7 % 05/24/25 23:10 [place] % (Auto) 8.6 % 05/24/25 23:10 Eos % (Auto) 5.2 % 05/24/25 23:10 Baso % (Auto) 1.1 % 05/24/25 23:10 Neut # (Auto) 3.99 10^3/uL (1.8-7.7) 05/24/25 23:10 Lymph # (Auto) 2.0 10^3/uL (0.8-4.8) 05/24/25 23:10 [place] # (Auto) 0.6 10^3/uL (0.2-0.9) 05/24/25 23:10 Eos # (Auto) 0.4 10^3/uL (0.0-0.8) 05/24/25 23:10 Baso # (Auto) 0.1 10^3/uL (0.0-0.1) 05/24/25 23:10 Nucleated RBC % (auto) 0 % 05/24/25 23:10 Nucleated RBCs # 0.0 /100WBC 05/24/25 23:10 Sodium 136 mmol/L (136-145) 05/24/25 23:10 Potassium 3.9 mmol/L (3.5-5.1) 05/24/25 23:10 Chloride 99 mmol/L (98-107) 05/24/25 23:10 Carbon Dioxide 24 mmol/L (22-29) 05/24/25 23:10 Anion Gap 16.9 (5-19) 05/24/25 23:10 BUN 14 mg/dL (8-23) 05/24/25 23:10 Creatinine 1.1 mg/dL (0.5-0.9) H 05/24/25 23:10 GFR Calculation 49.8 mL/min (90-130) L 05/24/25 23:10 Glucose 107 mg/dL (65-115) 05/24/25 23:10 Calculated Osmolality 283 mOsm/kg (285-295) L 05/24/25 23:10 Lactic Acid 1.6 mmol/L (0.5-2.2) 05/24/25 23:10 Calcium 7.7 mg/dL (8.5-10.5) L 05/24/25 23:10 Total Bilirubin 0.2 mg/dL (0.15-1.2) 05/24/25 23:10 AST 20 U/L (0-32) 05/24/25 23:10 ALT 22 U/L (0-33) 05/24/25 23:10 Alkaline Phosphatase 126 U/L (35-105) H 05/24/25 23:10 Troponin T Baseline 9 ng/L (0-10) 05/24/25 23:10 Total Protein 5.5 g/dL (6.6-8.7) L 05/24/25 23:10 Albumin 3.5 g/dL (3.5-5.2) 05/24/25 23:10 Globulin 2.0 g/dL (1.3-4.6) 05/24/25 23:10 Procalcitonin 0.07 ng/mL (0-0.5) 05/24/25 23:10 No radiology studies performed this visit EKG Data EKG 1: Interpretation: Normal sinus rhythm with a heart rate of 64, normal axis, normal intervals, no evidence of ST segment elevation. TWI in V1-V3. Discharge Plan Discharge Patient Disposition: Admitted As Inpatient Clinical Impression: Hypotension, Anemia, Polypharmacy Condition: Stable Coding Level of Care Code ED Solar Panel Technician for Zac Zaragoza
[2025-05-24 23:45] LABS: Hematocrit 24.0 % (36-47); Hemoglobin 7.70 g/dL (11.27-16.99); Mean Corpuscular HGB Conc 32.1 g/dL (30-55); Mean Corpuscular Hemoglobin 27.0 pg (27-33); Mean Corpuscular Volume 84.2 fl (85-98); Nucleated Red Blood Cells % 0 %; Platelet Count 302 10^3/cmm (157-399); Red Blood Count 2.85 10^6/uL (3.85-5.65); White Blood Count 7.11 10^3/uL (3.29-11.43)
[2025-05-25] VITALS (31 sets, daily range): BP systolic 97–184; BP diastolic 58–115; PULSE 61–106; RESP 10–23; TEMP 36.2–37; O2SAT 94–100
[2025-05-25 00:04] LABS: Troponin(5th) Baseline 9 ng/L (0-10)
[2025-05-25 00:06] LABS: Alanine Aminotransferase 22 U/L (0-33); Albumin Level 3.5 g/dL (3.5-5.2); Alkaline Phosphatase 126 U/L (35-105); Anion Gap 16.9 (5-19); Aspartate Amino Transferase 20 U/L (0-32); Blood Urea Nitrogen 14 mg/dL (8-23); Calcium 7.7 mg/dL (8.5-10.5); Carbon Dioxide 24 mmol/L (22-29); Chloride 99 mmol/L (98-107); Globulin 2.0 g/dL (1.3-4.6); Glucose 107 mg/dL (65-115); Osmolality Calculated 283 mOsm/kg (285-295); Potassium 3.9 mmol/L (3.5-5.1); Sodium 136 mmol/L (136-145); Total Protein 5.5 g/dL (6.6-8.7)
[2025-05-25 00:07] LABS: Lactic Sepsis W/Reflex 1.6 mmol/L (0.5-2.2)
[2025-05-25 00:13] LABS: Procalcitonin 0.07 ng/mL (0-0.5)
--- NOTE | 2025-05-25 01:24 | CTR_ITS ---
PROCEDURE INFORMATION: Exam: CT Abdomen And Pelvis With Contrast Exam date and time: 05/25/2025 1:44 AM Age: 64 years old Clinical indication: Abdominal pain; Prior surgery; Surgery date: 6+ months; Surgery type: Unknown timeframe hernia repair; Additional info: Black, tarry stools, anemia TECHNIQUE: Imaging protocol: Computed tomography of the abdomen and pelvis with contrast. Radiation optimization: All CT scans at this facility use at least one of these dose optimization techniques: automated exposure control; mA and/or kV adjustment per patient size (includes targeted exams where dose is matched to clinical indication); or iterative reconstruction. Contrast material: OMNI 350; Contrast volume: 100 ml; Contrast route: INTRAVENOUS (IV); COMPARISON: CR XR lumbar spine 2-3V* [id number] 02/06/2025 10:34 AM RADIATION DOSE METRICS: Total DLP (mGy-cm): 610.61 FINDINGS: Liver: Normal. No mass. Gallbladder and biliary ducts: Cholecystectomy. Pancreas: Normal. No ductal dilation. Spleen: Normal. No splenomegaly. Adrenal glands: Normal. No mass. Kidneys and ureters: Normal. No hydronephrosis. Stomach and bowel: Mild wall thickening of the sigmoid colon, concerning for mild colitis. Diverticulosis, without acute diverticulitis. No small bowel obstruction. No free air. Basilio fundoplication. Appendix: No evidence of appendicitis. Intraperitoneal space: See Stomach and bowel finding. Vasculature: Atherosclerotic changes of the aorta. Lymph nodes: Unremarkable. No enlarged lymph nodes. Urinary bladder: Unremarkable as visualized. Reproductive: Hysterectomy. Bones/joints: Degenerative changes of the spine. Posterior fusion at L4-L5. Soft tissues: Unremarkable. CT/CT abdomen pelvis w con* [id number] IMPRESSION: 1. Mild wall thickening of the sigmoid colon, concerning for mild colitis. 2. Cholecystectomy. 3. Hysterectomy. 4. Diverticulosis, without acute diverticulitis. No small bowel obstruction. No free air. 5. Basilio fundoplication.
--- NOTE | 2025-05-25 01:33 | P.HP_ITS ---
Providers/Chief Complaint 2 Admitting Physician: Fransico Antonio MD Primary Care Provider: Shannan Deluna MD Chief Complaint: HTN History of Present Illness Selina Henning is a 64 year old female with a past medical history of orthostatic hypotension, peripheral neuropathy, syncope, hypertension, hyperlipidemia, who presents [facility] due to concerns for dizziness, presyncope, low blood pressure. Currently patient is alert oriented x 3, follows all commands, she tells me that typically her blood pressures. Currently she is alert oriented x 3, follows all commands, she tells me that typically her blood pressure is elevated during the day, and drops during the night, she was recently started on chlorthalidone, she tells me that she takes gabapentin and hydrocodone before bed. Does not report a history of neuropathy. Reports today feeling lightheaded, dizzy, presyncope, denies passing out, with low blood pressures, no focal neurologic deficits, no seizure-like episode Review of Systems 2 Const: Denies: fever(s) or chills Card: Denies: chest pain Resp: Denies: dyspnea GI: Denies: abdominal pain or nausea Neuro: Reports: dizziness; Denies: headache(s), numbness in extremities, weakness in extremities, sensory changes, lack of coordination, confusion, Slurred speech present or difficulty communicating thoughts Medications/Allergies Home Medications ?Medication ?Instructions ?Recorded ?Confirmed ?Last Taken ?Type acetaminophen 325 mg tablet 325 mg PO QID PRN Pain (Sc shari 11/09/22 05/21/25 03/06/24 History Score 1-3) diabetic shoes with 3 inserts #1 ea 05/23/24 05/21/25 Unknown Rx Fast form #1 ea 06/15/24 05/21/25 Unkn own Rx atorvastatin 40 mg tablet 40 mg PO DAILY 90 days #90 t abs 02/20/25 05/21/25 Unknown Rx gabapentin 800 mg tablet 800 mg PO TID 30 days #90 ta bs 02/20/25 05/21/25 Unknown Rx metformin 500 mg tablet 500 mg PO DAILY 90 days #90 tabs 02/20/25 05/21/25 Unknown Rx Diabetic Shoes with 3 pairs of #1 ea 02/23/25 05/21/25 Unknown Rx inserts quetiapine 150 mg tablet 150 mg PO BEDTIME #30 tabs 0 03/09/25 05/21/25 Unknown Rx tizanidine 4 mg tablet 8 mg (2 x 4 mg) PO BID PRN m uscle 03/19/25 05/21/25 Unknown Rx spasticity #120 tabs amitriptyline 25 mg tablet 25 mg PO BEDTIME #30 tabs 0 04/03/25 05/21/25 Unknown Rx hydrocodone 7.5 mg-acetaminophen 1 tab PO BID PRN 04/1205/21/25 Unknown History 325 mg tablet buspirone 10 mg tablet 10 mg PO BID #60 tabs 05/21/25 Unknown Rx escitalopram oxalate 20 mg tablet 20 mg PO DAILY #30 t abs 05/04/25 05/21/25 Unknown Rx amlodipine 5 mg tablet 5 mg PO DAILY 30 days #30 ta bs 05/21/25 05/21/25 Unknown Rx chlorthalidone 50 mg tablet 50 mg PO QAM 30 days #30 t abs 05/21/25 05/21/25 Unknown Rx losartan 50 mg tablet 50 mg PO BID 30 days #60 tab s 05/21/25 05/21/25 Unknown Rx meloxicam 15 mg tablet 15 mg PO DAILY PRN pain #30 tabs 05/21/25 05/21/25 Unknown Rx Allergies Allergy/AdvReac Type Severity Reaction Status Date / Time cariprazine (From Vraylar) Allergy ADR-Shakine Verified 05/21/25 07:11 ss zolpidem (From Ambien) Allergy ADR-Confusi Verified 05/21/25 07:11 on metoprolol AdvReac Severe heart block Verified 05/21/25 07:11 PFSH Acute 2 PFSH: Medical History Psychiatric care Chronic back pain Fibromyalgia Family history of ischemic heart disease and other diseases of the circulatory system Mixed hyperlipidemia Type 2 diabetes mellitus with diabetic polyneuropathy, without long-term current use of insulin Irritable bowel syndrome with diarrhea Primary hypertension Family history of kidney cancer Bilateral renal cysts Surgical History Status post total left knee replacement using cement Surgery: Left total knee arthroplasty using cement. Surgeon: Dr. Vanessa Garcia MD. Date of surgery: August 2018. History of hysterectomy History of rotator cuff surgery History of cholecystectomy History of back surgery History of knee replacement History of cervical spinal surgery Family History Father , AT 88 Heart attack Diabetes Mother , AT AGE 85 Heart attack Diabetes Sister Heart attack Social History Smoking and tobacco/nicotine status: former use of tobacco/nicotine Alcohol intake: never Substance/Drug Use: never Marital status: Current occupational status: retired and disabled Vitals/I&O/Wt Last Vital Signs Temp 98.0 F 05/24/25 23:02 Pulse 68 05/25/25 01:21 Resp 18 05/25/25 01:21 BP 119/74 05/25/25 01:21 Pulse Ox 100 05/25/25 01:21 O2 Del Method Room Air 05/25/25 00:58 Weight last 48 hrs Weight 80.91 kg Physical Exam 2 Const: COMMON NORMALS: no acute distress and patient oriented x3 Eye: COMMON NORMALS: Equal, round and reactive pupils present and EOMs intact bilaterally Resp: COMMON NORMALS: normal respiratory effort, No retractions, No use of accessory muscles and clear to auscultation bilaterally AUSCULTATION: clear to auscultation bilaterally Cardio: COMMON NORMALS: regular rate, regular rhythm, S1 normal heart sound present and S2 normal heart sound present RATE: regular rate RHYTHM: r egular rhythm HEART SOUNDS: S1 normal heart sound present and S2 normal heart sound present GI: COMMON NORMALS: Normal to inspection, nondistended, normoactive bowel sounds present, Soft to palpation and non-tender Extremity: COMMON NORMALS: no calf tenderness and no pedal edema Neuro: COMMON NORMALS: patient oriented x3, CN's II-XII intact bilaterally and moves all extremities Psych: COMMON NORMALS: mental status grossly normal Data 05/24/25 23:10 05/24/25 23:10 A&P Assessment and plan 1. Acute hypotension: 2. Shock: Plan: Acute hypotension, multifactorial shock - Multifactorial - Polypharmacy from blood pressure medications, narcotics, tizanidine, gabapentin - Could be component of acute anemia -Potentially orthostatic hypotension associated with neuropathy - Will check a.m. cortisol - Consider cosyntropin stimulation test - Will check orthostatic vitals once stable - Gentle IV fluids Acute anemia - Iron studies, ferritin, reticulocyte count, stool studies - Transfuse if hemoglobin less than 7 - Check hemoglobin every 4 hours -Protonix, Carafate -Patient did report episode of black tarry stool, CT scan abdomen pelvis with IV contrast - Monitor closely Type 2 diabetes mellitus, low-dose sliding scale Full code SCDs for DVT prophylaxis, Lovenox relatively contraindicated given anemia PDMP PDMP Reviewed: Not Reviewed Attestations 2 Medical Necessity Statement*: Patient requires hospitalization, inpatient, greater than 2 midnights, for acute hypotension, anemia Diagnoses Acute hypotension I95.9 Shock R57.9
--- NOTE | 2025-05-25 01:35 | ECG_ITS ---
[facility] Test Date: 2025-05-25 Pat Name: Selina Henning Department: Room: [facility] Gender: Female Self Defense Instructor: : 1960 Requested By: Aggie Rocha Order Number: [id number] Liza MD: Doe Jackson M.D. Measurements Intervals [place] Rate: 85 P: 68 VA: 203 QRS: 33 QRSD: 80 T: 51 QT: 386 QTc: 460 Interpretive Statements SINUS RHYTHM Compared to ECG 05/24/2025 23:58:56 Prolonged QT interval no longer present Electronically Signed On 05-25-2025 13:15:45 ENGINEERING PROJECT MANAGER by Doe Jackson M.D. [email or web address] [id number]
[2025-05-25] MEDS: iohexol 350 mg/mL 500 mL Btl (per mL) IV (01:54)
[2025-05-25 02:13] LABS: Troponin 5 2HR 8.93 ng/L (0-10)
[2025-05-25 02:14] LABS: Troponin 5 2HR Delta -0.07 ABS# (0-10)
[2025-05-25 02:35] LABS: INR 0.96 (0.8-1.2); Prothrombin Time 13.50 SECONDS (12.1-14.9)
[2025-05-25 02:36] LABS: Partial Thromboplastin Time 26.3 SECONDS (23.9-36.7)
[2025-05-25] MEDS: pantoprazole 40 mg SDV IVP ×2 (02:36→13:23)
[2025-05-25 02:43] LABS: Respiratory Syncytial Virus Ce NEGATIVE (Negative); SARS-CoV-2 PCR NEGATIVE (Negative)
[2025-05-25 02:43] LABS: Glucose Urine UA Negative (Normal); Nitrate Urine Negative (Negative); Specific Gravity, Urine 1.012 (1.005-1.030)
[2025-05-25 02:48] LABS: Add Urine Microscopic? YES
[2025-05-25 05:00] LABS: Hematocrit 31.6 % (36-47); Hemoglobin 9.70 g/dL (11.27-16.99)
[2025-05-25] MEDS: HYDROcodone-acetaminophen 7.5-325 mg Tablet 1 TAB PO ×2 (05:14→13:22)
[2025-05-25 05:27] LABS: Iron 32 ug/dL (37-145)
[2025-05-25 05:38] LABS: Procalcitonin 0.06 ng/mL (0-0.5); Thyroid Stimulating Hormone 2.96 uIU/mL (0.27-4.20)
[2025-05-25 05:49] LABS: Ferritin 14 ng/mL (15-150); Iron 34 ug/dL (37-145); Magnesium 2.0 mg/dL (1.7-2.3); Total Iron Binding Capacity 377 mcg/dl; Unsaturated Iron Binding 343 ug/dL (112-347)
[2025-05-25 05:53] LABS: Estmated Average Glucose 131; Hemoglobin A1C 6.2 % (4.0-6.0)
[2025-05-25 08:06] LABS: Hematocrit 26.3 % (36-47); Hemoglobin 8.30 g/dL (11.27-16.99); Mean Corpuscular HGB Conc 31.6 g/dL (30-55); Mean Corpuscular Hemoglobin 26.3 pg (27-33); Mean Corpuscular Volume 83.5 fl (85-98); Nucleated Red Blood Cells % 0 %; Platelet Count 319 10^3/cmm (157-399); Red Blood Count 3.15 10^6/uL (3.85-5.65); White Blood Count 5.90 10^3/uL (3.29-11.43)
--- NOTE | 2025-05-25 11:48 | W.PM.EVENTAC ---
Event Note Event Note: Patient is a 64-year-old female who was admitted less than because of complaint of low BP, with associated dizziness and giddiness that happens mainly in the nights. Seeing patient this morning, she reports feeling much better. She currently has no new complaints. Her BPs have been stable so far. She denies any new complaints. The admitting physician's H&P is reviewed. Also reviewed. Ongoing treatment plans; I agree with the so far. Upon review, patient's BPs have been stable, and essentially within normal limits. I think to be stable and that we will patient to stepdown unit, where we continue to monitor her BPs closely, and reassess in the morning. In the meantime, rehydrate restlessly with IV fluid of normal saline, and resume patient's home dose of chlorthalidone. I will hold other home psychotropic medication that could potentially worsen patient's low nocturnal BPs. Anticipate discharge tomorrow if patient remains stable
--- NOTE | 2025-05-25 12:34 | PC.SOCIAL ---
IMM Update pg 2 of IMM Updated and reviewed w/ patient. Copy provided and copy dated, initialed and placed in chart.
--- NOTE | 2025-05-25 17:46 | PC.NURSE ---
Report called to JANIA Mancilla.
--- NOTE | 2025-05-25 17:58 | PC.NURSE ---
Notified Dr. Betts that blood pressure is currently 184/114 and has been running high. Inquired if he wanted to restart any of her home blood pressure medications. He said no that I could move her up to [facility] and he would put in some prn medications if they needed them tonight. Stated I would rather her blood pressure run high than low .
--- NOTE | 2025-05-25 18:19 | PC.NURSE ---
Transferred to room 269 via wheelchair.
--- NOTE | 2025-05-25 21:09 | PC.NURSE ---
Nurse went into patients room to administer medications, Patient was upset that the medications that was listed on her MAR did not match her home medication list. Nurse explained to patient that the provider had given orders to hold some of her medications due to her low BP. Patient started yelling about being frustrated with the situation. Patient told Nurse that she was only going to take one of the medications listed and was not going to take the rest of them, Patient told Nurse to leave the room and to turn all the lights off on the way out , Patient also stated to Nurse that she hopes she falls tonight so she could blame it on her DR nurse told patient that she was sorry that she was frustrated about the situation and that we would help her in any way we could. Nurse assured patient had her call light and made sure patient had her bedside table within reach before leaving the room.
--- NOTE | 2025-05-25 22:14 | PC.NURSE ---
This MEDIEVAL ENGLISH LITERATURE PROFESSOR attempted to complete a blood glucose check and the patient stated No I want everyone to stay out of my room and I dont want anything done this is stupid that I am unable to have the meds that I need cause of my blood pressure. . This MEDIEVAL ENGLISH LITERATURE PROFESSOR re-explained what was being attempted and would inform the nurse. After exiting the room this MEDIEVAL ENGLISH LITERATURE PROFESSOR promptly informed Krissy FLOWERS that was assigned to the patient.
[2025-05-26] MEDS: pantoprazole 40 mg SDV IVP (05:04)
[2025-05-26 06:15] LABS: Anion Gap 16.2 (5-19); Blood Urea Nitrogen 11 mg/dL (8-23); Calcium 8.9 mg/dL (8.5-10.5); Carbon Dioxide 24 mmol/L (22-29); Chloride 105 mmol/L (98-107); Glucose 111 mg/dL (65-115); Magnesium 1.7 mg/dL (1.7-2.3); Osmolality Calculated 292 mOsm/kg (285-295); Potassium 4.2 mmol/L (3.5-5.1); Sodium 141 mmol/L (136-145)
[2025-05-26 06:54] VITALS: BP 138/75; PULSE 89; RESP 18; TEMP 36.9; O2SAT 92
[2025-05-26 07:04] VITALS: BP 151/66; PULSE 90; RESP 15; TEMP 36.6; O2SAT 94
[2025-05-26] MEDS: HYDROcodone-acetaminophen 7.5-325 mg Tablet 1 TAB PO (08:27)
--- NOTE | 2025-05-26 09:13 | P.DS_ITS ---
Discharge Providers Date of Admission: 05/25/25 01:18 Date of Discharge: May 26, 2025 Attending Provider at Admission: Fransico Antonio MD Attending Provider at Discharge: Gilbert Betts MD Primary Care Provider: Shannan Deluna MD Diagnoses at Discharge Discharge Diagnosis 1. Acute hypotension: 2. Diabetic polyneuropathy associated with type 2 diabetes mellitus: 3. Fibromyalgia: 4. Type 2 diabetes mellitus with diabetic polyneuropathy, without long-term current use of insulin: 5. Mixed hyperlipidemia: 6. Polypharmacy: Reason for Visit Reason for Visit: Dizziness and giddiness Brief History: Patient presented to the ER with complaint of dizziness and giddiness that is more common in the next. She was found to be hypotensive. Fluids, she was admitted initially to the ICU. Hospital Course Hospital Course The hypotension was, after careful consideration, thought to be due to iatrogenic reasons, likely due to drug interactions. For this, most of antihypertensives were held initially. Later, we held amlodipine, continue patient on chlorthalidone. Some of her psychotropic medications were also held, while patient was monitored overnight. As at this morning, patient's blood pressure remains stable all day long x 24hrs.. Given this given strong suspicion that polypharmacy was related to patient's apparent nocturnal hypotension and symptoms, she is discharged on adjusted medication, aimed at minimizing likely side effects of some of the psychotropic medications & their interactions with other meds. We emphasized the grave importance of prompt outpatient follow-up with PCP for further evaluation and treatment, so as to minimize potential harmful effects. Physical Exam Narrative: General: Awake and alert. Cooperative. Chest/Resp: Normal respiratory chest movts; no obvious respiratory distress. CVS: Rhythm: Regular heart rate and rhythm. GI: Non-distended; No obvious organomegaly. Extremities: No obvious pitting pedal edema. Skin: No obvious new rashes or new skin lesions. Discharge Data Studies Completed and Pending Completed Studies During Hospitalization Category Date Time Status CT abdomen pelvis w con* [id number] Stat Cat Scan 05/25/25 01:24 Completed XR chest 1V portable [id number] Stat Exams 05/24/25 23:34 Completed Pending at discharge Category Date Time Status Basic Metabolic Panel AM LABS Lab 05/27/25 04:00 Ordered Basic Metabolic Panel AM LABS Lab 05/28/25 04:00 Ordered Blood Culture Stat Lab 05/24/25 23:34 Received Radiology Impressions Chest X-Ray 05/24/25 23:34 IMPRESSION: Trace left pleural effusion. Abdomen/Pelvis CT 05/25/25 01:24 1. Mild wall thickening of the sigmoid colon, concerning for mild colitis. 2. Cholecystectomy. 3. Hysterectomy. 4. Diverticulosis, without acute diverticulitis. No small bowel obstruction. No free air. 5. Basilio fundoplication. Vitals Last Vital Signs Temp 97.9 F 05/26/25 07:04 Pulse 90 05/26/25 07:04 Resp 15 05/26/25 07:04 BP 151/66 05/26/25 07:04 Pulse Ox 94 05/26/25 07:04 O2 Del Method Room Air 05/26/25 07:04 Discharge Plan Discharge Patient Disposition: Home Condition: Stable Prescriptions: New methocarbamol 500 mg tablet 500 - 1,500 mg PO TID PRN (Reason: muscle spasm) Qty: 60 3RF Continued escitalopram oxalate 20 mg tablet 20 mg PO DAILY Qty: 30 3RF (DME) Fast form See Rx Instructions .Route .MEDSUPPLY Qty: 1 0RF Rx Instructions: As directed atorvastatin 40 mg tablet 40 mg PO DAILY 90 Days Qty: 90 3RF metformin 500 mg tablet 500 mg PO DAILY 90 Days Qty: 90 3RF gabapentin 800 mg tablet 800 mg PO TID 30 Days Qty: 90 4RF hydrocodone-acetaminophen 7.5-325 mg tablet 1 tab PO BID PRN (Reason: Pain) chlorthalidone 50 mg tablet 50 mg PO QAM 30 Days Qty: 30 6RF amlodipine 5 mg tablet 5 mg PO DAILY 30 Days Qty: 30 5RF meloxicam 15 mg tablet 15 mg PO DAILY MDD 1 PRN (Reason: pain) Qty: 30 1RF Rx Instructions: with food (DME) diabetic shoes with 3 inserts See Rx Instructions .Route .MEDSUPPLY Qty: 1 0RF Rx Instructions: As directed to the [facility] ([facility]) Diabetic Shoes with 3 pairs of inserts See Rx Instructions .ROUTE .MEDSUPPLY Qty: 1 0RF Rx Instructions: As directed by [facility] losartan 50 mg tablet 50 mg PO DAILY Changed amitriptyline 25 mg tablet 25 mg PO BEDTIME PRN (Reason: Insomnia) Qty: 30 3RF buspirone 10 mg tablet 10 mg PO QAM Qty: 60 3RF Discontinued tizanidine 4 mg tablet 4 mg PO BID PRN (Reason: Muscle Spasticity) Discharge Order = DC NOW: Discharge Order (Routine); Ordered 05/26/25 Ordered By: Gilbert Betts Referrals: Shannan Deluna MD [Primary Care Provider, [facility]] - 4-7 days Referral Note: We have notified your physician's clinic of the need for a follow-up appointment to be scheduled. If you have not heard from them within the next 2 business days, please call them directly. Discharge Diet: Usual diet Discharge Activity: Increase activity as tolerated Patient Instructions: Methocarbamol (By mouth), Hypotension (DC), Opioid Safety, Patient Portal & Gwendolyn Instructions Activity Restrictions/Additional Instructions: Follow up with primary care provider within the next 1 to 2 weeks for further evaluation and adjustment of medications. It is worth re-emphasizing that the chief problem, nocturnal hypotension, is likely to be due to adverse drug interaction from polypharmacy. This underscores the need to have PCP thoroughly look at this, so as to be able to further adjust medications, as may be likely needed. Plan of Treatment: [place] re-emphasizing that the chief problem, nocturnal hypotension, is likely to be due to adverse drug interaction from poly-pharmacy. This underscores the need to have PCP thoroughly look at this, so as to be able to further adjust medications, as may be likely needed. Discharge Attestations Time Spent in Discharge Care*: less than 30 min Quality Metrics Clinical Quality Measures [ No reported AMI, CVA or VTE this stay] Coding Level of Care Code Acute Code for Chg Fwd Diagnoses Acute hypotension I95.9 Diabetic polyneuropathy associated with type 2 diabetes mellitus E11.42 Diabetes mellitus type: type 2 Diabetes mellitus complication detail: diabetic polyneuropathy Fibromyalgia M79.7 Type 2 diabetes mellitus with diabetic polyneuropathy, without long-term current use of insulin E11.42 Diabetes mellitus type: type 2 Diabetes mellitus keno terminal operator insulin use: without keno terminal operator use Diabetes mellitus complication status: with neurologic complications Diabetes mellitus complication detail: with polyneuropathy Mixed hyperlipidemia E78.2 Hyperlipidemia type: mixed hyperlipidemia Polypharmacy Z79.899
[2025-05-26 11:15] VITALS: BP 188/84; PULSE 95; RESP 16; TEMP 36.6; O2SAT 97
[2025-05-26 12:30] VITALS: BP 188/84; PULSE 95; RESP 16; TEMP 36.6; O2SAT 97
== END 2025-05-26 12:00 | disposition home or self-care (01) | DRG 312 ==
LOC: ER 05-25 01:10 → ICU 05-25 01:18 → MEDSURG 05-25 18:17
PROVIDERS: Admitting Provider Family Medicine; Emergency Provider Emergency Medicine; PCP Family Medicine; Visit Provider Family Medicine
DX: I95.2 Hypotension due to drugs (principal); E11.42 Type 2 diabetes mellitus with diabetic polyneuropathy; M79.7 Fibromyalgia; E78.2 Mixed hyperlipidemia; G89.29 Other chronic pain; M54.9 Dorsalgia, unspecified; K58.0 Irritable bowel syndrome with diarrhea; I10 Essential (primary) hypertension; D64.9 Anemia, unspecified; Z79.4 Long term (current) use of insulin; Z79.84 Long term (current) use of oral hypoglycemic drugs; Z87.891 Personal history of nicotine dependence
CPT/HCPCS: 36415; 36416; 71045; 74177; 80048; 80053; 81001; 82274; 82533; 82728; 82962; 83036; 83540; 83550; 83605; 83735; 84145; 84443; 84484; 85014; 85018; 85025; 85045; 85610; 85730; 86140; 87040; 87637; 93005; 94664; 96372; J1815; J2470; J7030; J9999

== ENCOUNTER → 2025-06-04 11:12 | Outpatient (BNVA) | payer OTHER, MEDICAID, SELFPAY | PROVIDERS: PCP Family Medicine; Visit Provider Family Medicine | DX: I10 Essential (primary) hypertension (principal) | CPT/HCPCS: 80048; 85025 ==

== ENCOUNTER → 2025-06-11 13:53 | Outpatient (BNVA) | payer OTHER, MEDICAID, SELFPAY | PROVIDERS: PCP Family Medicine; Visit Provider Surgery | DX: Z12.11 Encounter for screening for malignant neoplasm of colon (principal); D50.9 Iron deficiency anemia, unspecified | CPT/HCPCS: 99204 ==

== ENCOUNTER 2025-06-28 06:24 | Day surgery (SDC) | payer OTHER, MEDICAID, SELFPAY ==
[2025-06-28 06:38] VITALS: BP 141/77; PULSE 97; RESP 18; TEMP 36.1; O2SAT 97; BMI 26.1
--- NOTE | 2025-06-28 06:55 | P.HPUD_ITS ---
Surgery/Procedure H&P Update DATE OF PROCEDURE: June 28, 2025 DATE H&P PERFORMED: 06/11/25 H&P UPDATE INFORMATION: I have reviewed H&P completed within last 30 days, I have examined patient prior to procedure, No changes to prior documentation, H&P is in [facility] EMR on date indicated and Risks and benefits of the procedure reviewed PLANNED PROCEDURE: Operation Date: 06/28/25 07:40 Proposed Procedures p EGD EGD with Biopsy [id number] G0105 D50.9(Not Applicable) - Talon López MD s Colonoscopy(Not Applicable) - Talon López MD
--- NOTE | 2025-06-28 06:55 | ANES.PREANE2 ---
Pre-Anesthetic Assessment Height/Weight: Height 1.63 m Weight 68.946 kg Temp Pulse Resp BP Pulse Ox O2 Del Method 97 F L 97 18 141/77 97 Room Air 06/28/25 06:38 06/28/25 06:38 06/28/25 06:38 06/28/25 06:38 06/28/25 06:38 06/28/25 06:38 Preop Diagnosis: Anemia Operation Date: 06/28/25 07:40 Proposed Procedures p EGD EGD with Biopsy [id number] G0105 D50.9(Not Applicable) - Talon López MD s Colonoscopy(Not Applicable) - Talon López MD Familial anesthetic complications: none Was Beta Josep taken within 24 hours: N/A Last intake: Intake Last Liquid Date 06/27/25 Last Liquid Time 20:00 Last Solid Date 06/26/25 Last Solid Time 19:00 Social No alcohol and No tobacco Exam alert, oriented x 3, clear to auscultation bilaterally and regular rate & rhythm Airway Submandibular: within normal limits Cervical ROM: within normal limits Mallampati: Class II Dentition: false (upper plate) Pulmonary None reported CV/HEM Hypertension None reported Hepatic None reported GI Gastroesophageal Reflux Disease Metabolic Diabetes Mellitus and Hyperlipidemia [facility] None reported Neuropsych Anxiety and Depression Anesthetic Plan ASA status: 2 Anesthesia: MAC Medications/Allergies Home Medications ?Medication ?Instructions ?Recorded ?Confirmed ?Last Taken ?Type diabetic shoes with 3 inserts #1 ea 05/23/24 06/26/25 06/27/25 Rx Fast form #1 ea 06/15/24 06/26/25 06/27/25 Rx atorvastatin 40 mg tablet 40 mg PO DAILY 90 days #90 tabs 02/20/25 06/26/25 06/27/25 Rx metformin 500 mg tablet 500 mg PO DAILY 90 days #90 tabs 02/20/25 06/26/25 06/27/25 Rx Diabetic Shoes with 3 pairs of #1 ea 02/23/25 06/26/25 06/27/25 Rx inserts hydrocodone 7.5 mg-acetaminophen 1 tab PO BID PRN Pain 05/03/25 06/26/25 06/27/25 History 325 mg tablet escitalopram oxalate 20 mg tablet 20 mg PO DAILY #30 tabs 05/04/25 06/26/25 06/27/25 Rx amlodipine 5 mg tablet 5 mg PO DAILY 30 days #30 tabs 05/21/25 06/26/25 06/27/25 Rx chlorthalidone 50 mg tablet 50 mg PO QAM 30 days #30 tabs 05/21/25 06/26/25 06/27/25 Rx losartan 50 mg tablet 50 mg PO DAILY 05/25/25 06/26/25 06/27/25 History buspirone 10 mg tablet 10 mg PO QAM #60 tabs 05/26/25 06/26/25 06/27/25 Rx amitriptyline 50 mg tablet 50 mg PO BEDTIME #30 tabs 06/12/25 06/26/25 06/27/25 Rx gabapentin 800 mg tablet 800 mg PO TID 30 days #90 tabs 06/26/25 06/27/25 06/27/25 Rx Allergies Allergy/AdvReac Type Severity Reaction Status Date / Time cariprazine (From Vraylar) Allergy ADR-Shakine Verified 06/26/25 08:54 ss zolpidem (From Ambien) Allergy ADR-Confusi Verified 06/26/25 08:54 on metoprolol AdvReac Severe heart block Verified 06/26/25 08:54 Current Medications Generic Name Dose Route Start Last Admin Trade Name Freq PRN Reason Stop Dose Admin Sodium Chloride 1,000 mls @ 15 mls/hr 06/28/25 06:28 06/28/25 06:53 Sodium Chloride 0.9% IV 06/29/25 06:27 15 mls/hr .Q24H PRN Administration COLONOSCOPY FLUIDS PFSH Anesthesia Medical History Psychiatric care Chronic back pain Fibromyalgia Family history of ischemic heart disease and other diseases of the circulatory system Mixed hyperlipidemia Type 2 diabetes mellitus with diabetic polyneuropathy, without long-term current use of insulin Irritable bowel syndrome with diarrhea Primary hypertension Family history of kidney cancer Bilateral renal cysts Surgical History Status post total left knee replacement using cement Surgery: Left total knee arthroplasty using cement. Surgeon: Dr. Vanessa Garcia MD. Date of surgery: August 2018. History of hysterectomy History of rotator cuff surgery History of cholecystectomy History of back surgery History of knee replacement History of cervical spinal surgery Family History Father , AT 88 Heart attack Diabetes Mother , AT AGE 85 Heart attack Diabetes Sister Heart attack Social History Smoking and tobacco/nicotine status: former use of tobacco/nicotine Alcohol intake: never Substance/Drug Use: never Marital status: Current occupational status: retired and disabled Data Anesthesia Cardiac Studies: Echocardiogram 04/10/25 Sestamibi Stress Test (Cardiology) 08/25/22 Cardiac Event Monitor 10/12/22
[2025-06-28 08:00] VITALS: BP 95/65; PULSE 86; RESP 14; TEMP 36.2; O2SAT 94
[2025-06-28 08:30] VITALS: BP 154/84; PULSE 81; RESP 16; O2SAT 99
--- NOTE | 2025-06-28 08:34 | ANE.PACU2 ---
Inpatient post-anesthesia follow up: Airway intact: Yes Vital signs: Temperature 97.1 F Pulse Rate 81 Respiratory Rate 16 Blood Pressure 154/84 Pulse Oximetry 99 Oxygen Delivery Me thod Room Air Oxygen Flow Rate Fraction of Inspir ed Oxygen Hydration adequate: Yes Nausea and vomiting: No Pain level: 1 Mental status: Baseline
== END 2025-06-28 08:34 | disposition home or self-care (01) ==
PROVIDERS: PCP Family Medicine; Visit Provider Surgery
PROC: 0DJ08ZZ Inspection of Upper Intestinal Tract, Via Natural or Artificial Opening Endoscopic (ICD-10-PCS; principal; 2025-06-28 07:40)
PROC: 0DJD8ZZ Inspection of Lower Intestinal Tract, Via Natural or Artificial Opening Endoscopic (ICD-10-PCS; CPT 45378; 2025-06-28 07:40)
DX: Z12.11 Encounter for screening for malignant neoplasm of colon (principal); K64.8 Other hemorrhoids; K92.2 Gastrointestinal hemorrhage, unspecified; K44.9 Diaphragmatic hernia without obstruction or gangrene; D50.9 Iron deficiency anemia, unspecified; Z79.84 Long term (current) use of oral hypoglycemic drugs; Z79.891 Long term (current) use of opiate analgesic; I10 Essential (primary) hypertension; K21.9 Gastro-esophageal reflux disease without esophagitis; E11.9 Type 2 diabetes mellitus without complications; E78.5 Hyperlipidemia, unspecified; F41.8 Other specified anxiety disorders; M79.7 Fibromyalgia; Z82.49 Family history of ischemic heart disease and other diseases of the circulatory system; Z80.51 Family history of malignant neoplasm of kidney; E11.42 Type 2 diabetes mellitus with diabetic polyneuropathy; Z87.891 Personal history of nicotine dependence
CPT/HCPCS: 36416; 43239; 45378; 82962; 88305; 88342; J2704; J7030